=== PATIENT | male | born 1935 | race Caucasian/White ===

== ENCOUNTER 2017-01-13 17:50 | Emergency (ER) | payer MEDICARE, OTHER ==
[~2017-01-13] VITALS: Ht 180.3 cm; Wt 76.0 kg
[~2017-01-13 17:50] MED LIST: CLOP75 PO; FURO1TAB93 PO; LIPI10TA PO; LORTA5 PO; NITR0.4S SL; OMEP20TA39 PO; PRIM250 PO; PROS5TAB2 PO
[2017-01-13 18:16] VITALS: BP 118/66; PULSE 75; RESP 18; TEMP 98.2; O2SAT 95
[2017-01-13] MEDS ORDERED: MAGNESIUM CITRATE SOLN 300 ML BTL PO ONE (19:45)
[2017-01-13] MEDS ORDERED: GLYCERIN ADULT 2 GM SUPP RECTAL ONE (19:45)
--- NOTE | 2017-01-13 19:52 | PD ---
HPI Chief Complaint: GI Complaint Time Seen by Provider: 19:26 Travel History International Travel<30 days: No Contact w/Intl Traveler<30days: No Traveled to known affect area: No History of Present Illness HPI Is an 81-year-old man presents to the emergency department complaining of lower abdominal pain. He states he's had some URI symptoms recently in his doctor started him on some codeine cough medicine. He states over the past 4 days he hasn't been able to have a bowel movement which is unusual for him. reports he has some trouble constipation at baseline. Since that time he has had worsening lower abdominal discomfort. He tried some suppositories today with no effect. 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, no longer on warfarin Social History Alcohol Use: No Tobacco Use: No Allergies-Medications (Allergen,Severity, Reaction): Coded Allergies: Insulins (Verified Allergy, Severe, NPH SPECIFIC RASH - ABLE TO TAKE HUMALOG, 01/13/17) Latex (Verified Allergy, Severe, Rash, 01/13/17) Spiriva (Verified Allergy, Severe, 01/13/17) Uncoded Allergies: FLONASE (Allergy, Severe, 09/15/15) NPH INSULIN (Allergy, Severe, RASH, 03/02/09) Reported Meds & Prescriptions Reported Meds & Active Scripts Active Miralax Powder (Polyethylene Glycol 3350 Powder) 17 Gm Powd 17 Gm PO DAILY Mix and dissolve one measuring cap-ful (17 grams) in water or juice. Poplar 5-325 mg (Hydrocodone-Acetaminophen 5-325 mg) 1 Tab 1 Tab PO Q4H PRN Lasix (Furosemide) 40 Mg Tab 40 Mg PO BID 30 Days Reported Nitrostat (Nitroglycerin) 0.4 Mg Sub 0.4 Mg SL DIRECTED Omeprazole (Omeprazole) 20 Mg Tab 20 Mg PO DAILY Lipitor 10 Mg Tab (Atorvastatin Calcium) 10 Mg Tab Unknown Dose PO DAILY Proscar (Finasteride) 5 Mg Tab 5 Mg PO HS Mysoline (Primidone) 250 Mg Tab 250 Mg PO TID Plavix (Clopidogrel Bisulfate) 75 Mg Tab 75 Mg PO DAILY Review of Systems Except as stated in HPI: all other systems reviewed are Neg Physical Exam Narrative GENERAL: Is an 81-year-old man, little sluggish to respond, obviously feels unwell, not toxic appearing. SKIN: Focused skin assessment warm/dry. HEAD: Atraumatic. Normocephalic. EYES: Pupils equal and round. He does have some pale conjunctiva. ENT: No nasal bleeding or discharge. Mucous membranes pink and moist. NECK: Trachea midline. No JVD. CARDIOVASCULAR: Regular rate and rhythm. No murmur appreciated. RESPIRATORY: No accessory muscle use. Clear to auscultation. Breath sounds equal bilaterally. GASTROINTESTINAL: Abdomen flat and soft. He has some moderate lower abdominal tenderness to palpation. RECTAL: Patient has large amount of firm stool palpable in the rectal vault. Patient was disimpacted of a large amount of firm stool. There was a little bit of bloody mucus at the end. MUSCULOSKELETAL: No obvious deformities. No edema. NEUROLOGICAL: Awake and alert, little bit slow to answer questions. No obvious cranial nerve deficits. Motor grossly within normal limits. Normal speech. Data Data Last Documented VS Vital Signs Date Time Temp Pulse Resp B/P Pulse Ox O2 Delivery O2 Flow Rate FiO2 01/13/17 19:30 18 01/13/17 18:16 98.2 75 118/66 95 Orders Glycerin Adult Supp (Glycerin Adult Supp (01/13/17 19:45) Magnesium Citrate Liq (Citroma Liq) (01/13/17 19:45) Complete Blood Count With Diff (01/13/17 19:44) Basic Metabolic Panel (Bmp) (01/13/17 19:44) Iv Access Insert/Monitor (01/13/17 19:44) Ct Abd/Pel W/O Iv Contrast (01/13/17 ) Insulin Aspart Inj (Novolog Inj) (01/13/17 21:15) Labs Laboratory Tests Test 01/13/17 20:03 White Blood Count 18.0 TH/MM3 Red Blood Count 4.57 MIL/MM3 Hemoglobin 14.2 GM/DL Hematocrit 44.1 % Mean Corpuscular Volume 96.4 FL Mean Corpuscular Hemoglobin 31.1 PG Mean Corpuscular Hemoglobin 32.3 % Concent Red Cell Distribution Width 13.8 % Platelet Count 220 TH/MM3 Mean Platelet Volume 8.3 FL Neutrophils (%) (Auto) 87.6 % Lymphocytes (%) (Auto) 1.8 % Monocytes (%) (Auto) 9.6 % Eosinophils (%) (Auto) 0.4 % Basophils (%) (Auto) 0.6 % Neutrophils # (Auto) 15.8 TH/MM3 Lymphocytes # (Auto) 0.3 TH/MM3 Monocytes # (Auto) 1.7 TH/MM3 Eosinophils # (Auto) 0.1 TH/MM3 Basophils # (Auto) 0.1 TH/MM3 CBC Comment DIFF FINAL Differential Comment Sodium Level 134 MEQ/L Potassium Level 4.4 MEQ/L Chloride Level 95 MEQ/L Carbon Dioxide Level 26.8 MEQ/L Anion Gap 12 MEQ/L Blood Urea Nitrogen 36 MG/DL Creatinine 2.20 MG/DL Estimat Glomerular Filtration 29 ML/MIN Rate Random Glucose 259 MG/DL Calcium Level 9.4 MG/DL [facility] Medical Decision Making Medical Screen Exam Complete: Yes Emergency Medical Condition: Yes Interpretation(s) LABS: CBC remarkable for a white count of 18,000, hemoglobin is normal. CMP remarkable for elevated creatinine, increased from baseline. Glucose is also elevated. CT abdomen and pelvis: Fecal debris throughout the colon consistent with constipation. 16 mm calcified density with the appendix is with fecalith but without thickening dilatation. Pain is still inflammatory changes to suggest acute appendicitis. Degenerative changes in the spine. Atrophic pancreas. Mildly prominent prostate. Fibrotic scarring. Focal emphysematous changes. Differential Diagnosis Constipation, urinary retention, diverticulitis, obstruction, other Narrative Course Medical decision making INITIAL: 81-year-old male presents emergency department for abdominal pain and constipation. His rectal exam demonstrates a large amount of firm stool in the rectal vault. Patient had a door serious ago with inability to pass stools. Think this is suggestive of fecal impaction. He does look pretty pale. We'll check some screening labs and x-ray. We'll also give him a glycerin suppository and magnesium citrate now that we've disimpacted him. Expect improvement of his symptoms. Diagnosis Primary Impression: Abdominal pain Qualified Code: R10.30 - Lower abdominal pain Additional Impression: Constipation Qualified Code: K59.00 - Constipation, unspecified constipation type Additional Instructions: Take MiraLAX starting tomorrow and titrate to normal bowel movements. Follow-up with your primary doctor in the next 2-4 days. Return to the emergency department for any new or worsening symptoms. Med/Other Pt SpecificInfo: Prescription(s) given Scripts Polyethylene Glycol 3350 Powder (Miralax Powder)17 Gm Powd17 Gm PO DAILY #1 BOTTLE Mix and dissolve one measuring cap-ful (17 grams) in water or juice. Prov:Satinder Gaines MD 01/13/17 Disposition: 01 DISCHARGE HOME Condition: Stable Satinder Gaines MD Jan 13, 2017 19:51
[2017-01-13 20:20] LABS: POTASSIUM 4.4 MEQ/L (3.5-5.1)
[2017-01-13 20:23] LABS: AUTOMATED NEUTROPHIL # 15.8 TH/MM3 (1.8-7.7); BASOPHIL # 0.1 TH/MM3 (0-0.2); BASOPHIL % 0.6 % (0.0-2.0); BICARBONATE 26.8 MEQ/L (21.0-32.0); EOSINOPHIL # 0.1 TH/MM3 (0-0.4); EOSINOPHIL % 0.4 % (0.0-4.0); HEMATOCRIT 44.1 % (39.0-51.0); LYMPH % 1.8 % (9.0-44.0); LYMPHOCYTE # 0.3 TH/MM3 (1.0-4.8); MEAN CELL VOLUME 96.4 FL (80.0-100.0); MEAN CORPUSCULAR HEMOGLOBIN 31.1 PG (27.0-34.0); MEAN CORPUSCULAR HGB CONC 32.3 % (32.0-36.0); MONO % 9.6 % (0.0-8.0); NEUT % 87.6 % (16.0-70.0); PLATELET COUNT 220 TH/MM3 (150-450); RED BLOOD COUNT 4.57 MIL/MM3 (4.50-5.90); RED CELL DISTRIBUTION WIDTH 13.8 % (11.6-17.2)
[2017-01-13 20:29] LABS: HEMO FLAGS DIFF FINAL
--- NOTE | 2017-01-13 20:55 | RADHPO ---
EXAM DATE/TIME: 01/13/2017 20:21 [facility] COMPARISON: No previous studies available for comparison. INDICATIONS : Abdominal pain and constipation. ORAL CONTRAST: No oral contrast ingested. RADIATION DOSE: 11.55 CTDIvol (mGy) MEDICAL HISTORY : Hernia, inguinal. Diabetes mellitus type 2. SURGICAL HISTORY : Inguinal hernia repair. ENCOUNTER: Initial ACUITY: 1 day PAIN SCALE: 10/10 LOCATION: Abdomen TECHNIQUE: Volumetric scanning of the abdomen and pelvis was performed. Using automated exposure control and ad justment of the mA and/or kV according to patient size, radiation dose was kept as low as reasonably achievable to obtain optimal diagnostic quality images. FINDINGS: There is evidence of fecal debris throughout the colon consistent with the patient's history of const ipation. There is an ovoid calcification in the expected region of the appendix measuring 1.6 cm con sistent with appendicolith. No definite appendiceal thickening or dilatation is noted. No periappen diceal inflammatory changes are noted to suggest acute appendicitis. Evaluation of the solid organs of the abdomen is limited by the lack of intravenous contrast. There is no acute obstructive uropath y. The urinary bladder is unremarkable. The prostate gland is mildly prominent. The pancreas is at rophic. No acute obstructive uropathy is noted. The gallbladder is unremarkable. Degenerative lopez ges and scoliosis of the thoracolumbar spine are noted. Fibrotic scarring and/or atelectasis are not ed within the right lung base. Focal emphysematous changes are noted within the left lower lobe. Th e abdominal aorta is calcified but is not aneurysmally dilated. The inferior vena cava is normal. T here is no paraaortic, retroperitoneal or mesenteric lymphadenopathy. CONCLUSION: 1. Fecal debris throughout the colon consistent with the patient's history of constipation. 2. 16 mm calcified density within the appendix consistent with fecalith but no thickening, dilatatio n or periappendiceal inflammatory changes to suggest acute appendicitis. 3. Degenerative changes and scoliosis of the thoracolumbar spine. 4. Atrophic pancreas. 5. Mildly prominent prostate gland. 6. Fibrotic scarring and/or atelectasis within the right lung base. 7. Focal emphysematous changes within the left lower lobe. Sam Coburn MD on January 13, 2017 at 20:40 Board Certified Radiologist. This report was verified electronically.
[2017-01-13] MEDS ORDERED: MIRA33504 PO (21:06)
[2017-01-13] MEDS ORDERED: INSULIN ASPART 1,000 UNITS/10 ML VIAL SQ ONE (21:15)
[2017-01-13 21:48] VITALS: BP 135/62; PULSE 93; RESP 16; O2SAT 95
[2017-01-14] MEDS ORDERED: FURO1TAB60 PO (02:56)
[2017-01-14] MEDS ORDERED: LANTUS2P SQ (02:56)
[2017-01-14] MEDS ORDERED: NITR0.4S SL (02:56)
[2017-01-14] MEDS ORDERED: OMEP20TA PO (02:56)
[2017-01-14] MEDS ORDERED: PRIM250T5 PO (02:56)
[2017-01-14] MEDS ORDERED: PLAV75TA29 PO (02:56)
[2017-01-14] MEDS ORDERED: ATOR40TA16 PO (02:56)
[2017-01-14] MEDS ORDERED: FINA5TAB2 PO (02:56)
[2017-01-14] MEDS ORDERED: ACET-534 PO (02:56)
== END 2017-01-13 22:27 | disposition home or self-care (01) ==
LOC: PHED 17:50
DX: K59.00 Constipation, unspecified (principal); I25.10 Atherosclerotic heart disease of native coronary artery without angina pectoris; E11.9 Type 2 diabetes mellitus without complications; E78.5 Hyperlipidemia, unspecified; K21.9 Gastro-esophageal reflux disease without esophagitis; N40.0 Benign prostatic hyperplasia without lower urinary tract symptoms; Z79.02 Long term (current) use of antithrombotics/antiplatelets; Z95.5 Presence of coronary angioplasty implant and graft; Z79.899 Other long term (current) drug therapy
CPT/HCPCS: 74176; 80048; 85025; 96372; 99284; J1815

== ENCOUNTER 2017-02-11 10:15 | Emergency (ER) | payer MEDICARE, OTHER ==
[~2017-02-11] VITALS: Ht 177.8 cm; Wt 71.5 kg
[~2017-02-11 10:15] MED LIST changes: +ACET-534 PO; +ATOR40TA16 PO; -CLOP75 PO; +FINA5TAB2 PO; +FURO1TAB60 PO; -FURO1TAB93 PO; +LANTUS2P SQ; -LIPI10TA PO; -LORTA5 PO; +MIRA33504 PO; +OMEP20TA PO; -OMEP20TA39 PO; +PLAV75TA29 PO; -PRIM250 PO; +PRIM250T5 PO; -PROS5TAB2 PO
[2017-02-11 10:24] VITALS: BP 116/63; PULSE 93; RESP 18; TEMP 97.9; O2SAT 94
[2017-02-11] MEDS ORDERED: SODIUM CHLORIDE 0.9% FLUSH 10 ML FLUSH IVF PRN (10:45)
[2017-02-11] MEDS ORDERED: methylPREDNISolone SOD SUCC 125 MG/2 ML VIAL IVP ONE (10:45)
[2017-02-11] MEDS: RESP: ALBUTEROL 2.5 MG/IPRATROPIUM 0.5 MG NEB (SCH) INH ×2 (10:51→10:55)
[2017-02-11 10:52] VITALS: BP 96/62; PULSE 83; RESP 18; O2SAT 96
--- NOTE | 2017-02-11 10:52 | PD ---
HPI Chief Complaint: Respiratory Symptoms Time Seen by Provider: 10:31 Travel History International Travel<30 days: No Contact w/Intl Traveler<30days: No Traveled to known affect area: No History of Present Illness HPI This is an 81-year-old male who presents to the emergency department with 6 weeks of increasing sputum production described as brown, constant, moderate severity, associated with some rhinorrhea and nasal congestion. He was prescribed a Z-Mitchell by his primary care physician and he is on the fourth day out of 5 and it's not helping. He does say he feels short of breath particularly with exertion. He says he wakes up in the middle the night coughing. He does have a history of congestive heart failure and is on Lasix but has not noticed any increasing lower extremity swelling. He denies any chest pain. He says he has a history of blood clots in his lungs by his doctor told him that the risks of treating them were too high so they're just watching them. PFSH Past Medical History Hx Anticoagulant Therapy: Yes Arthritis: Yes Anxiety: No Depression: No Cancer: No Cardiac Catheterization: Yes Cardiovascular Problems: Yes (htn on meds, AL x 1 with stents. Hx of PE) High Cholesterol: Yes Coronary Artery Disease: Yes Diabetes: Yes Patient Takes Glucophage: No Diminished Hearing: No Deep Vein Thrombosis: Yes (BILAT PE) Gastrointestinal Disorders: Yes GERD: Yes Genitourinary: Yes (ENLARGED PROSTATE) Hypertension: Yes Immune Disorder: Yes (SHINGLES) Musculoskeletal: Yes (OSTEOPROSIS) Neurologic: No Psychiatric: No Respiratory: Yes (PE) Influenza Vaccination: Yes ?: Not Past Surgical History Abdominal Surgery: Yes (HUE INGUINAL HERNIA REPAIR) Coronary Stent: Yes (2007- X1 LAD, AND SEOT 2015/X3) Thoracic Surgery: Yes (RT LUNG BIOPSY ) Other Surgery: Yes (HUE HERNIA) Social History Alcohol Use: No Tobacco Use: No Substance Use: No Allergies-Medications (Allergen,Severity, Reaction): Coded Allergies: Insulins (Verified Allergy, Severe, NPH SPECIFIC RASH - ABLE TO TAKE HUMALOG, 02/11/17) Latex (Verified Allergy, Severe, Rash, 02/11/17) Spiriva (Verified Allergy, Severe, 02/11/17) Uncoded Allergies: FLONASE (Allergy, Severe, 02/11/17) . Reported Meds & Prescriptions Reported Meds & Active Scripts Active Reported Nitrostat SL (Nitroglycerin) 0.4 Mg Subl 0.4 Mg SL DIRECTED PRN 1 tablet under the tongue as needed for chest pain. Repeat every 5 minutes for a total of 3 DOSES or call 911 if NO relief. Acetaminophen/Codeine Jennifer 300-30 mg (Acetaminophen W/ Codeine) 1 Tab Tab 1 Tab PO DAILY PRN Finasteride 5 Mg Tab 5 Mg PO HS Do not crush. Atorvastatin (Atorvastatin Calcium) 40 Mg Tab 40 Mg PO HS Omeprazole 20 Mg Tab 20 Mg PO HS Lantus Inj (Insulin Glargine) 1,000 Unit/10 Ml Vial 20 Units SQ HS Lasix (Furosemide) 40 Mg Tab 40 Mg PO DAILY Plavix (Clopidogrel Bisulfate) 75 Mg Tab 75 Mg PO DAILY Primidone 250 Mg Tab 250 Mg PO TID Review of Systems Except as stated in HPI: all other systems reviewed are Neg Physical Exam Narrative GENERAL: Frail elderly male in no acute distress SKIN: Focused skin assessment warm and dry. HEAD: Atraumatic. Normocephalic. EYES: Pupils equal and round. No injection or drainage. ENT: Moist mucous membranes NECK: Trachea midline. CARDIOVASCULAR: Regular rate and rhythm. No murmur appreciated. RESPIRATORY: Expiratory wheezing, some rhonchi in the bilateral lower lobes GASTROINTESTINAL: Abdomen soft, non-tender, nondistended. MUSCULOSKELETAL: No obvious deformities. NEUROLOGICAL: Awake and alert. No obvious cranial nerve deficits. Moving all extremities. PSYCHIATRIC: Appropriate mood and affect; insight and judgment normal. Data Data Last Documented VS Vital Signs Date Time Temp Pulse Resp B/P Pulse Ox O2 Delivery O2 Flow Rate FiO2 02/11/17 13:45 82 18 161/82 98 Nasal Cannula 2 02/11/17 10:24 97.9 Orders Complete Blood Count With Diff (02/11/17 10:43) Comprehensive Metabolic Panel (02/11/17 10:43) B-Type Natriuretic Peptide (02/11/17 10:43) Iv Access Insert/Monitor (02/11/17 10:43) Ecg Monitoring (02/11/17 10:43) Oximetry (02/11/17 10:43) Oxygen Administration (02/11/17 10:43) Chest, Single Ap (02/11/17 10:43) Sodium Chloride 0.9% Flush (Ns Flush) (02/11/17 10:45) Methylprednisolone So Succ Inj (Solumedr (02/11/17 10:45) Albuterol-Ipratropium Neb (Duoneb Neb) (02/11/17 10:45) Ct Pulmonary Angiogram (02/11/17 ) Iohexol 350 Inj (Omnipaque 350 Inj) (02/11/17 13:43) Labs Laboratory Tests Test 02/11/17 10:45 White Blood Count 6.8 TH/MM3 Red Blood Count 4.14 MIL/MM3 Hemoglobin 13.4 GM/DL Hematocrit 39.4 % Mean Corpuscular Volume 95.2 FL Mean Corpuscular Hemoglobin 32.5 PG Mean Corpuscular Hemoglobin 34.2 % Concent Red Cell Distribution Width 13.8 % Platelet Count 141 TH/MM3 Mean Platelet Volume 7.7 FL Neutrophils (%) (Auto) 67.4 % Lymphocytes (%) (Auto) 11.9 % Monocytes (%) (Auto) 8.1 % Eosinophils (%) (Auto) 12.3 % Basophils (%) (Auto) 0.3 % Neutrophils # (Auto) 4.7 TH/MM3 Lymphocytes # (Auto) 0.8 TH/MM3 Monocytes # (Auto) 0.5 TH/MM3 Eosinophils # (Auto) 0.8 TH/MM3 Basophils # (Auto) 0.0 TH/MM3 CBC Comment DIFF FINAL Differential Comment Sodium Level 143 MEQ/L Potassium Level 4.1 MEQ/L Chloride Level 105 MEQ/L Carbon Dioxide Level 32.6 MEQ/L Anion Gap 5 MEQ/L Blood Urea Nitrogen 19 MG/DL Creatinine 1.60 MG/DL Estimat Glomerular Filtration 42 ML/MIN Rate Random Glucose 226 MG/DL Calcium Level 8.8 MG/DL Total Bilirubin 0.4 MG/DL Aspartate Amino Transf 25 U/L (AST/SGOT) Alanine Aminotransferase 25 U/L (ALT/SGPT) Alkaline Phosphatase 124 U/L B-Type Natriuretic Peptide 301 PG/ML Total Protein 7.2 GM/DL Albumin 3.4 GM/DL MDM Medical Decision Making Medical Screen Exam Complete: Yes Emergency Medical Condition: Yes Interpretation(s) Afebrile, no tachycardia, normotensive No leukocytosis Renal insufficiency BNP is 300 Last 24 hours Impressions Chest X-Ray 02/11/17 1043 Signed Impressions: Service Date/Time: January 11:03 - CONCLUSION: No acute cardiopulmonary abnormality is identified. Brady Carlson MD CT Angiography 02/11/17 0000 Signed Impressions: Service Date/Time: January 13:16 - CONCLUSION: 1. No current evidence of pulmonary emboli. 2. Chronic scarring. 3. Coronary artery calcifications are present. Chico Martinez MD Differential Diagnosis COPD exacerbation, pneumonia, pulmonary embolism Narrative Course This is an 81-year-old male who presents to the emergency department with increasing sputum production and shortness of breath that has been going on for several weeks. He was placed on a monitor and an IV was established. He was given steroids and bronchodilator treatments. Labs are obtained which were reassuring with an indeterminate BMP however patient does have a known history of congestive heart failure. Chest x-ray was without pneumonia. CT pulmonary angiogram was obtained given the patient's reported history of known pulmonary emboli. There are no evidence of blood clots on his CT today. I suspect the patient has underlying COPD. He'll be discharged on prednisone, continued bronchodilators and Levaquin. Diagnosis Primary Impression: Bronchitis Patient Instructions: General Instructions Additional Instructions: If you develop severe shortness of breath, chest pain, or difficulty breathing return to the emergency department. Use albuterol every 4 hours for the next 2 days. Then use as needed for wheezing. Complete your course of steroids. Complete your course of antibiotics. Follow up with your primary care physician in 2-3 days if your symptoms have not improved. Med/Other Pt SpecificInfo: Prescription(s) given Scripts Albuterol 8.5 GM Inh (Proair Hfa 8.5 GM Inh)90 Mcg/Act Aer2 Puff INH Q4-6H PRN ( SHORTNESS OF BREATH) #1 INHALER Ref 0 108 mcg/actuation Prov:Jamilah Way MD 02/11/17 Prednisone 20 Mg Tab40 Mg PO DAILY 4 Days Prov:Jamilah Way MD 02/11/17 Levofloxacin (Levaquin)500 Mg [id number] Mg PO DAILY 7 Days Ref 0 Prov:Jamilah Way MD 02/11/17 Disposition: 01 DISCHARGE HOME Condition: Stable Jamilah Way MD Feb 11, 2017 10:52
[2017-02-11 10:55] LABS: AUTOMATED NEUTROPHIL # 4.7 TH/MM3 (1.8-7.7); BASOPHIL % 0.3 % (0.0-2.0); EOSINOPHIL # 0.8 TH/MM3 (0-0.4); EOSINOPHIL % 12.3 % (0.0-4.0); HEMATOCRIT 39.4 % (39.0-51.0); HEMO FLAGS DIFF FINAL; LYMPH % 11.9 % (9.0-44.0); LYMPHOCYTE # 0.8 TH/MM3 (1.0-4.8); MEAN CELL VOLUME 95.2 FL (80.0-100.0); MEAN CORPUSCULAR HEMOGLOBIN 32.5 PG (27.0-34.0); MEAN CORPUSCULAR HGB CONC 34.2 % (32.0-36.0); MONO % 8.1 % (0.0-8.0); NEUT % 67.4 % (16.0-70.0); PLATELET COUNT 141 TH/MM3 (150-450); RED BLOOD COUNT 4.14 MIL/MM3 (4.50-5.90); RED CELL DISTRIBUTION WIDTH 13.8 % (11.6-17.2); WHITE BLOOD COUNT 6.8 TH/MM3 (4.0-11.0)
[2017-02-11 11:03] LABS: CHLORIDE 105 MEQ/L (98-107); POTASSIUM 4.1 MEQ/L (3.5-5.1); SODIUM (NA) 143 MEQ/L (136-145)
[2017-02-11 11:06] LABS: ANION GAP 5 MEQ/L (5-15); BICARBONATE 32.6 MEQ/L (21.0-32.0); BLOOD UREA NITROGEN 19 MG/DL (7-18)
[2017-02-11 11:09] LABS: ALT (GPT) 25 U/L (12-78)
[2017-02-11 11:10] LABS: AST (GOT) 25 U/L (15-37); GLOMERULAR FILTRATION RATE 42 ML/MIN (>89)
[2017-02-11 11:11] LABS: TOTAL BILIRUBIN ADULT 0.4 MG/DL (0.2-1.0)
[2017-02-11 11:12] LABS: ALKALINE PHOSPHATASE 124 U/L (45-117)
--- NOTE | 2017-02-11 11:47 | RADHPO ---
EXAM DATE/TIME: 02/11/2017 11:03 [facility] COMPARISON: CHEST SINGLE AP, September 18, 2015, 13:21. INDICATIONS : Short of breath, cough, heavy phlegm x 6 weeks. MEDICAL HISTORY : Hypertension. Myocardial infarction. Hypercholesterolemia. DVT. GERD.Osteoarthritis. Enlarged pro state. Arthirtis. Shingles. Pulmonary embolism. SURGICAL HISTORY : Inguinal hernia repair. Cardiac cath w/ stent placement. Right lung biopsy. Bialteral rotator cuff repair. ENCOUNTER: Initial ACUITY: 1 month PAIN SCORE: 0/10 LOCATION: chest FINDINGS: Portable AP view of the chest demonstrates a normal-sized cardiac silhouette. Lungs are underinflated and there is atelectasis at the right lung base. No effusion, consolidation, or pneumothorax is iden tified. Bones demonstrate no acute finding. CONCLUSION: No acute cardiopulmonary abnormality is identified. Brady Carlson MD on February 11, 2017 at 11:38 Board Certified Radiologist. This report was verified electronically.
[2017-02-11 12:02] VITALS: BP 135/67; PULSE 78; RESP 18; O2SAT 94
[2017-02-11] MEDS ORDERED: IOHEXOL 350 MG/ML 10 ML VIAL (for RAD DIAG) IV ONE (13:43)
[2017-02-11 13:45] VITALS: BP 161/82; PULSE 82; RESP 18; O2SAT 98
--- NOTE | 2017-02-11 13:51 | RADHPO ---
EXAM DATE/TIME: 02/11/2017 13:16 [facility] COMPARISON: CHEST SINGLE AP, February 11, 2017, 11:03. CT PULMONARY ANGIOGRAM, September 15, 2015, 0:32. INDICATIONS : Cough and congestion for 6 weeks. History of prior documented pulmonary emboli in 2014. IV CONTRAST: 100 cc Omnipaque 350 (iohexol) IV RADIATION DOSE: 10.93 CTDIvol (mGy) MEDICAL HISTORY : Hypertension. Diabetes mellitus type 2. Cardiovascular disease SURGICAL HISTORY : None. ENCOUNTER: Initial ACUITY: 1 month PAIN SCALE: 2/10 LOCATION: chest TECHNIQUE: Volumetric scanning of the chest was performed using a pulmonary embolism protocol MIP images were re constructed. Using automated exposure control and adjustment of the mA and/or kV according to patien t size, radiation dose was kept as low as reasonably achievable to obtain optimal diagnostic quality images. FINDINGS: PULMONARY ARTERIES: No filling defects are seen in the pulmonary arteries through the segmental level. LUNGS: There is no consolidation or pneumothorax . Chronic scarring is noted greatest at the lung bases. No concerning pulmonary nodule is visualized. PLEURAE: There is no pleural thickening or pleural effusion. MEDIASTINUM: There is good visualization of the great vessels of the middle mediastinum. No evidence of mediastin al or hilar adenopathy/mass. Coronary artery calcifications are present. MUSCULOSKELETAL: Within normal limits for patient age. MISCELLANEOUS: The visualized upper abdominal organs demonstrate no acute abnormality. CONCLUSION: 1. No current evidence of pulmonary emboli. 2. Chronic scarring. 3. Coronary artery calcifications are present. Chico Martinez MD on February 11, 2017 at 13:46 Board Certified Radiologist. This report was verified electronically.
[2017-02-11] MEDS ORDERED: LEVA500T PO (14:12)
[2017-02-11] MEDS ORDERED: PRED20 PO (14:12)
[2017-02-11] MEDS ORDERED: ALBUAER3 INH (14:12)
== END 2017-02-11 14:25 | disposition home or self-care (01) ==
LOC: PHED 10:15
DX: J40 Bronchitis, not specified as acute or chronic (principal); R05 Cough; I10 Essential (primary) hypertension; E11.9 Type 2 diabetes mellitus without complications; R06.02 Shortness of breath; Z79.01 Long term (current) use of anticoagulants
CPT/HCPCS: 71010; 71275; 80053; 83880; 85025; 94640; 94664; 96374; 99284; J2930; Q9967

== ENCOUNTER 2017-03-19 11:44 | Observation (INO) | payer MEDICARE, OTHER ==
[2017-03-19] VITALS (11 sets, daily range): BP systolic 94–133; BP diastolic 63–73; PULSE 75–90; RESP 14–20; TEMP 96.4–97.9; O2SAT 90–98
[~2017-03-19] VITALS: Ht 177.8 cm; Wt 156.3 kg
[~2017-03-19 11:44] MED LIST changes: +ALBUAER3 INH; +LEVA500T PO; -MIRA33504 PO; +PRED20 PO
[2017-03-19] MEDS ORDERED: PRIM50TA5 PO (12:26)
[2017-03-19] MEDS ORDERED: VITA100018 PO (12:26)
[2017-03-19] MEDS ORDERED: OCUVTAB4 PO (12:26)
[2017-03-19] MEDS ORDERED: DULC5TAB PO (12:26)
[2017-03-19] MEDS ORDERED: [UNRECOGNIZED DRUG - CODE] PO (12:26)
[2017-03-19] MEDS ORDERED: NEBUMIS6 INH (12:26)
[2017-03-19] MEDS ORDERED: SODIUM CHLORIDE 0.9% FLUSH 10 ML FLUSH IVF PRN (12:30)
[2017-03-19] MEDS: RESP: ALBUTEROL 2.5 MG/IPRATROPIUM 0.5 MG NEB (SCH) INH (12:30)
[2017-03-19 12:33] LABS: AUTOMATED NEUTROPHIL # 4.4 TH/MM3 (1.8-7.7); BASOPHIL % 0.5 % (0.0-2.0); EOSINOPHIL # 0.5 TH/MM3 (0-0.4); EOSINOPHIL % 8.1 % (0.0-4.0); HEMATOCRIT 43.4 % (39.0-51.0); HEMO FLAGS DIFF FINAL; LYMPH % 9.8 % (9.0-44.0); LYMPHOCYTE # 0.6 TH/MM3 (1.0-4.8); MEAN CELL VOLUME 94.4 FL (80.0-100.0); MEAN CORPUSCULAR HEMOGLOBIN 31.9 PG (27.0-34.0); MEAN CORPUSCULAR HGB CONC 33.8 % (32.0-36.0); MONO % 9.6 % (0.0-8.0); PLATELET COUNT 178 TH/MM3 (150-450); RED CELL DISTRIBUTION WIDTH 14.3 % (11.6-17.2); WHITE BLOOD COUNT 6.1 TH/MM3 (4.0-11.0)
[2017-03-19 12:41] LABS: CHLORIDE 101 MEQ/L (98-107); SODIUM (NA) 141 MEQ/L (136-145)
[2017-03-19 12:44] LABS: ANION GAP 7 MEQ/L (5-15); BICARBONATE 32.9 MEQ/L (21.0-32.0); BLOOD UREA NITROGEN 27 MG/DL (7-18)
[2017-03-19 12:46] LABS: APTT (PATIENT) 28.3 SEC (24.3-30.1); PROTHROMBIN TIME - PATIENT 11.6 SEC (9.8-11.6)
[2017-03-19 12:47] LABS: ALT (GPT) 30 U/L (12-78); AST (GOT) 44 U/L (15-37); GLOMERULAR FILTRATION RATE 34 ML/MIN (>89)
[2017-03-19 12:49] LABS: TOTAL BILIRUBIN ADULT 0.3 MG/DL (0.2-1.0)
[2017-03-19 12:50] LABS: ALKALINE PHOSPHATASE 148 U/L (45-117); CREATINE KINASE 442 U/L (39-308)
[2017-03-19 13:03] LABS: CKMB 4.9 NG/ML (0.5-3.6)
--- NOTE | 2017-03-19 13:26 | RADHPO ---
EXAM DATE/TIME: 03/19/2017 13:12 [facility] COMPARISON: CHEST SINGLE AP, February 11, 2017, 11:03. INDICATIONS : Short of breath and cough MEDICAL HISTORY : Deep venous thrombosis. Hypertension Hypercholesterolemia. Blood clots in lungs SURGICAL HISTORY : Cardiac stents ENCOUNTER: Initial ACUITY: 2 months PAIN SCORE: 0/10 LOCATION: Bilateral chest FINDINGS: PA and lateral views of the chest. Persistent elevation of the right hemidiaphragm. Patchy predominan tly linear opacity in the mid to lower lung zones bilaterally similar to the prior study of 02/11/2017 . No evidence of pleural effusion or pneumothorax. CONCLUSION: Bilateral lower lung zone opacity similar to the prior study, likely representing atelectasis or scar ring. Yogesh Marie MD on March 19, 2017 at 13:23 Board Certified Radiologist. This report was verified electronically.
--- NOTE | 2017-03-19 13:46 | PD ---
HPI Chief Complaint: Cold / Flu Symptoms Time Seen by Provider: 12:10 Travel History International Travel<30 days: No (5) Contact w/Intl Traveler<30days: No Traveled to known affect area: No History of Present Illness HPI Patient is a 81 year old male, with history of CHF (EF 35%), who comes in complaining of SOB. He is followed by Dr. Corona from pulmonology and has been receiving infusions of antibiotics and steroids for the past 3 weeks. He says he has had a cough for the past 4 months. He says that when he went for his infusion today, they told him it didn't seem to be helping and that his oxygen saturation was low (85%). They suggested he come to the ED. He says the coughing has been bothering him and he feels SOB. He denies fever. He says he has had an 8-10 pound weight loss. He denies any chest pain or leg swelling. PFSH Past Medical History Hx Anticoagulant Therapy: Yes (PLAVIX) Arthritis: Yes Anxiety: No Depression: No Cancer: No Cardiac Catheterization: Yes Cardiovascular Problems: Yes (htn on meds, [place] x 1 with stents. Hx of PE) High Cholesterol: Yes Coronary Artery Disease: Yes Diabetes: Yes Patient Takes Glucophage: No Diminished Hearing: Yes Deep Vein Thrombosis: Yes (BILAT PE) Gastrointestinal Disorders: Yes GERD: Yes Genitourinary: Yes (ENLARGED PROSTATE) Hypertension: Yes Immune Disorder: Yes (SHINGLES) Medical other: Yes ([place] VIRUS IN PAST) Musculoskeletal: Yes (OSTEOPROSIS) Neurologic: No Psychiatric: No Respiratory: Yes (PE) Immunizations Current: Yes Tetanus Vaccination: Unknown Influenza Vaccination: Yes Past Surgical History Abdominal Surgery: Yes (HUE INGUINAL HERNIA REPAIR) Coronary Stent: Yes (2006- X1 LAD, AND SEOT 2015/X3) Thoracic Surgery: Yes (RT LUNG BIOPSY ) Other Surgery: Yes (HUE HERNIA) Social History Alcohol Use: No Tobacco Use: No Substance Use: No Allergies-Medications (Allergen,Severity, Reaction): Coded Allergies: Insulins (Verified Allergy, Severe, NPH SPECIFIC RASH - ABLE TO TAKE HUMALOG, 03/19/17) Latex (Verified Allergy, Severe, Rash, 03/19/17) Spiriva (Verified Allergy, Severe, DIFFICULTY URINATING, 03/19/17) Uncoded Allergies: FLONASE (Allergy, Severe, 02/11/17) . Reported Meds & Prescriptions Reported Meds & Active Scripts Active Proair Hfa 8.5 GM Inh (Albuterol Sulfate) 90 Mcg/Act Aer 2 Puff INH Q4-6H PRN 108 mcg/actuation Prednisone 20 Mg Tab 40 Mg PO DAILY 4 Days Reported Vitamin D3 (Cholecalciferol) 1,000 Unit Tab 1,000 Units PO DAILY Preservision Areds (Multiple Vitamins W/ Minerals) 1 Tab 1 Tab PO DAILY Dulcolax DR (Bisacodyl) 5 Mg Tabdr 5 Mg PO DAILY PRN Oscimin (Hyoscyamine Sulfate) 0.125 Mg Tab 1 Tab PO DAILY [Nebulizer] 1 INH TID Primidone 50 Mg Tab 250 Mg PO TID Nitrostat SL (Nitroglycerin) 0.4 Mg Subl 0.4 Mg SL DIRECTED PRN 1 tablet under the tongue as needed for chest pain. Repeat every 5 minutes for a total of 3 DOSES or call 911 if NO relief. Finasteride 5 Mg Tab 5 Mg PO HS Do not crush. Atorvastatin (Atorvastatin Calcium) 40 Mg Tab 40 Mg PO HS Omeprazole 20 Mg Tab 20 Mg PO HS Lantus Inj (Insulin Glargine) 1,000 Unit/10 Ml Vial 20 Units SQ BID Lasix (Furosemide) 40 Mg Tab 40 Mg PO DAILY Plavix (Clopidogrel Bisulfate) 75 Mg Tab 75 Mg PO DAILY Review of Systems Except as stated in HPI: all other systems reviewed are Neg General / Constitutional: No: Fever, Chills HENT: No: Headaches, Lightheadedness Cardiovascular: No: Chest Pain or Discomfort Respiratory: Positive: Cough, Shortness of Breath Gastrointestinal: Positive: Nausea, No: Vomiting Musculoskeletal: No: Myalgias, Edema Skin: No Rash, No Change in Pigmentation Neurologic: No: Weakness, Dizziness Physical Exam Narrative GENERAL: Awake and alert, in no acute distress. SKIN: Focused skin assessment warm/dry. HEAD: Atraumatic. Normocephalic. EYES: Pupils equal and round. No scleral icterus. ENT: Mucous membranes pink and moist. NECK: Trachea midline. No JVD. CARDIOVASCULAR: Regular rate and rhythm. No murmur appreciated. RESPIRATORY: No accessory muscle use. Right-sided crackles. Breath sounds equal bilaterally. GASTROINTESTINAL: Abdomen soft, non-tender, nondistended. MUSCULOSKELETAL: No obvious deformities. No clubbing. No cyanosis. No edema. NEUROLOGICAL: Awake and alert. No obvious cranial nerve deficits. Motor grossly within normal limits. Normal speech. PSYCHIATRIC: Appropriate mood and affect; insight and judgment normal. Data Data Last Documented VS Vital Signs Date Time Temp Pulse Resp B/P Pulse Ox O2 Delivery O2 Flow Rate FiO2 03/19/17 13:01 84 18 121/72 97 Nasal Cannula 2 03/19/17 11:46 97.9 Orders Complete Blood Count With Diff (03/19/17 12:19) Comprehensive Metabolic Panel (03/19/17 12:19) B-Type Natriuretic Peptide (03/19/17 12:19) Act Partial Throm Time (Ptt) (03/19/17 12:19) Prothrombin Time / Inr (Pt) (03/19/17 12:19) Ckmb (Isoenzyme) Profile (03/19/17 12:19) Troponin I (03/19/17 12:19) Iv Access Insert/Monitor (03/19/17 12:19) Electrocardiogram (03/19/17 12:19) Ecg Monitoring (03/19/17 12:19) Oximetry (03/19/17 12:19) Oxygen Administration (03/19/17 12:19) Chest, Pa & Lat (03/19/17 12:19) Sodium Chloride 0.9% Flush (Ns Flush) (03/19/17 12:30) Albuterol-Ipratropium Neb (Duoneb Neb) (03/19/17 12:30) CKMB (03/19/17 11:55) CKMB% (03/19/17 11:55) Labs Laboratory Tests Test 03/19/17 11:55 White Blood Count 6.1 TH/MM3 Red Blood Count 4.60 MIL/MM3 Hemoglobin 14.7 GM/DL Hematocrit 43.4 % Mean Corpuscular Volume 94.4 FL Mean Corpuscular Hemoglobin 31.9 PG Mean Corpuscular Hemoglobin 33.8 % Concent Red Cell Distribution Width 14.3 % Platelet Count 178 TH/MM3 Mean Platelet Volume 8.0 FL Neutrophils (%) (Auto) 72.0 % Lymphocytes (%) (Auto) 9.8 % Monocytes (%) (Auto) 9.6 % Eosinophils (%) (Auto) 8.1 % Basophils (%) (Auto) 0.5 % Neutrophils # (Auto) 4.4 TH/MM3 Lymphocytes # (Auto) 0.6 TH/MM3 Monocytes # (Auto) 0.6 TH/MM3 Eosinophils # (Auto) 0.5 TH/MM3 Basophils # (Auto) 0.0 TH/MM3 CBC Comment DIFF FINAL Differential Comment Prothrombin Time 11.6 SEC Prothromb Time International 1.0 RATIO Ratio Activated Partial 28.3 SEC Thromboplast Time Sodium Level 141 MEQ/L Potassium Level 4.0 MEQ/L Chloride Level 101 MEQ/L Carbon Dioxide Level 32.9 MEQ/L Anion Gap 7 MEQ/L Blood Urea Nitrogen 27 MG/DL Creatinine 1.90 MG/DL Estimat Glomerular Filtration 34 ML/MIN Rate Random Glucose 219 MG/DL Calcium Level 8.8 MG/DL Total Bilirubin 0.3 MG/DL Aspartate Amino Transf 44 U/L (AST/SGOT) Alanine Aminotransferase 30 U/L (ALT/SGPT) Alkaline Phosphatase 148 U/L Total Creatine Kinase 442 U/L Creatine Kinase MB 4.9 NG/ML Creatine Kinase MB % 1.1 % Troponin I 0.06 NG/ML B-Type Natriuretic Peptide 275 PG/ML Total Protein 7.9 GM/DL Albumin 3.6 GM/DL MDM Medical Decision Making Medical Screen Exam Complete: Yes Emergency Medical Condition: Yes Medical Record Reviewed: Yes Interpretation(s) ECG shows NSR at 81, no ST elevation or depression. t wave inversions in V4-V6 Differential Diagnosis Pneumonia versus COPD versus CHF versus ACS Narrative Course Patient is a 81-year-old male comes in complaining of shortness of breath and patient found to be hypoxic triage to 90%. He was placed on nasal cannula. IV established, labs sent. Exam shows right-sided crackles in the lungs. Patient placed on model and mold maker. Labs show an elevation in troponin to 0.06, CK-MB is also elevated. Patient was given 3 DuoNebs, which she says has helped a little with his breathing. He still was not feeling well. Chest x-ray is unchanged from previous. Patient will require admission due to hypoxia as well as elevated cardiac enzymes. Diagnosis Primary Impression: SOB (shortness of breath) Additional Impressions: Hypoxia Cardiac enzymes elevated Admitting Information Admitting Physician Requests: Admit Condition: Stable Veronica Suarez MD Mar 19, 2017 13:46
[2017-03-19] MEDS ORDERED: ASPIRIN 81 MG CHEW TAB CHEW ONE (14:00)
[2017-03-19] MEDS ORDERED: GLUCAGON 1 MG/ML VIAL OTHER PRN (14:15)
[2017-03-19] MEDS ORDERED: RESP: ALBUTEROL 1.25 MG/3 ML NEB (PRN) NEB (14:15)
[2017-03-19] MEDS ORDERED: DEXTROSE 50% IN WATER 50 ML VIAL(D50) IV PRN (14:15)
--- NOTE | 2017-03-19 14:18 | HHI.HP ---
[facility] Service [facility] Primary Care Physician Jigna Espino MD Admission Diagnosis Hypoxia, elevated cardiac enzymes Diagnoses: (1) Bronchitis Diagnosis: Principal Chief Complaint: cough Travel History International Travel<30 Days: No (5) Contact w/Intl Traveler <30 Da: No Traveled to Known Affected Are: No History of Present Illness patient is a 81 y/o male with reported recently diagnosed COPD who presented to ER with productive cough. he says that his cough started while back. cough is productive of yellowish/ whitish sputum.he denies any fever, chills or night sweats. he says that he doesn't have that much of appetite and he's feeling very weak. he's being followed up by . he says that he's been getting IV antibiotics and steroids in the office for the past two weeks with no significant relief. he was referred to ER for further evaluation. he received neb treatment in ER and at the time of my evaluation he was feeling better. he denies chest pain. Review of Systems Constitutional: COMPLAINS OF: Fatigue, Change in appetite, DENIES: Fever, Weight loss, Chills, Night Sweats Eyes: DENIES: Blurred vision, Diplopia, Vision loss, Double Vision Ears, nose, mouth, throat: DENIES: Tinnitus, Vertigo, Throat pain, Epistaxis Respiratory: COMPLAINS OF: Cough, Sputum production, DENIES: Apneas, Snoring, Wheezing, Hemoptysis, Shortness of breath Cardiovascular: DENIES: Chest pain, Palpitations, Syncope, Dyspnea on Exertion , PND, Lower Extremity Edema, Orthopnea, Claudication Gastrointestinal: DENIES: Abdominal pain, Black stools, Bloody stools, Constipation, Diarrhea, Nausea, Vomiting, Difficulty Swallowing, Anorexia Genitourinary: DENIES: Urinary frequency, Urgency, Hematuria, Dysuria Musculoskeletal: DENIES: Joint pain, Muscle aches, Stiffness, Joint Swelling Integumentary: DENIES: Rash Neurologic: DENIES: Abnormal gait, Headache, Localized weakness, Paresthesias, Seizures, Speech Problems, Tremor, Poor Balance Psychiatric: DENIES: Anxiety, Confusion, Mood changes, Depression, Hallucinations, Agitation, Suicidal Ideation, Homicidal Ideation, Delusions Past Family Social History Past Medical History COPD diabetes mellitus hypertension CAD Past Surgical History cardiac stent placement lung surgery Reported Medications Proair Hfa 8.5 GM Inh (Albuterol Sulfate) 90 Mcg/Act Aer 2 Puff INH Q4-6H PRN 108 mcg/actuation Prednisone 20 Mg Tab 40 Mg PO DAILY 4 Days Vitamin D3 (Cholecalciferol) 1,000 Unit Tab 1,000 Units PO DAILY Preservision Areds (Multiple Vitamins W/ Minerals) 1 Tab 1 Tab PO DAILY Dulcolax DR (Bisacodyl) 5 Mg Tabdr 5 Mg PO DAILY PRN Oscimin (Hyoscyamine Sulfate) 0.125 Mg Tab 1 Tab PO DAILY [Nebulizer] 1 INH TID Primidone 50 Mg Tab 250 Mg PO TID Nitrostat SL (Nitroglycerin) 0.4 Mg Subl 0.4 Mg SL DIRECTED PRN 1 tablet under the tongue as needed for chest pain. Repeat every 5 minutes for a total of 3 DOSES or call 911 if NO relief. Finasteride 5 Mg Tab 5 Mg PO HS Do not crush. Atorvastatin (Atorvastatin Calcium) 40 Mg Tab 40 Mg PO HS Omeprazole 20 Mg Tab 20 Mg PO HS Lantus Inj (Insulin Glargine) 1,000 Unit/10 Ml Vial 20 Units SQ BID Lasix (Furosemide) 40 Mg Tab 40 Mg PO DAILY Plavix (Clopidogrel Bisulfate) 75 Mg Tab 75 Mg PO DAILY Allergies: Coded Allergies: Insulins (Verified Allergy, Severe, NPH SPECIFIC RASH - ABLE TO TAKE HUMALOG, 03/19/17) Latex (Verified Allergy, Severe, Rash, 03/19/17) Spiriva (Verified Allergy, Severe, DIFFICULTY URINATING, 03/19/17) Uncoded Allergies: FLONASE (Allergy, Severe, 02/11/17) . Active Ordered Medications Current Medications Sodium Chloride (NS Flush) 2 ml UNSCH PRN IVF FLUSH AFTER USING IV ACCESS; Start 03/19/17 at 12:30 Albuterol/ Ipratropium (Duoneb Neb) 1 ampule Q15M INH Last administered on t 12:30; Start 03/19/17 at 12:30; Stop 03/19/17 at 13:01; Status DC Aspirin (Aspirin Chew) 324 mg ONCE ONCE CHEW Last administered on 03/19/17t 13: 52; Start 03/19/17 at 14:00; Stop 03/19/17 at 14:01; Status DC Dextrose (D50w (Vial) Inj) 50 ml UNSCH PRN IV HYPOGLYCEMIA-SEE COMMENTS; Start 03/19/17 at 14:15; Status UNV Glucagon (Glucagon Inj) 1 mg UNSCH PRN OTHER HYPOGLYCEMIA-SEE COMMENTS; Start 03/19/17 at 14:15; Status UNV Insulin Aspart (NovoLOG SUPPLEMENTAL SCALE) 1 ACHS SLIDING SCALE SQ ; Start 03/19/17 at 16:00; Status UNV Atorvastatin Calcium (Lipitor) 40 mg HS PO ; Start 03/19/17 at 21:00; Status UNV Clopidogrel Bisulfate (Plavix) 75 mg DAILY PO ; Start 03/20/17 at 09:00; Status UNV Finasteride (Proscar) 5 mg HS PO ; Start 03/19/17 at 21:00; Status UNV Furosemide (Lasix) 40 mg DAILY PO ; Start 03/20/17 at 09:00; Status UNV Insulin Glargine (Lantus Inj) 20 units BID SQ ; Start 03/19/17 at 21:00; Status UNV Primidone (Mysoline) 250 mg TID PO ; Start 03/19/17 at 18:00; Status UNV Non-Formulary Medication 1 tab DAILY PO ; Start 03/20/17 at 09:00; Status UNV Non-Formulary Medication 20 mg HS PO ; Start 03/19/17 at 21:00; Status UNV Family History not significant. Social History quit smoking years ago. lives with his . Physical Exam Vital Signs Vital Signs Date Time Temp Pulse Resp B/P Pulse Ox O2 Delivery O2 Flow Rate FiO2 03/19/17 13:57 87 20 108/65 98 Nasal Cannula 2 03/19/17 13:01 84 18 121/72 97 Nasal Cannula 2 03/19/17 12:28 92 Nasal Cannula 2 03/19/17 12:28 92 Nasal Cannula 2 03/19/17 12:03 84 20 133/73 92 Room Air 03/19/17 12:03 83 20 92 Room Air 03/19/17 11:46 97.9 90 20 111/68 90 Physical Exam GENERAL: This is a well-nourished, well-developed patient, in no apparent distress. SKIN: No rashes, ecchymoses or lesions. Cool and dry. HEAD: Atraumatic. Normocephalic. No temporal or scalp tenderness. EYES: Pupils equal round and reactive. Extraocular motions intact. No scleral icterus. No injection or drainage. ENT: Nose without bleeding, purulent drainage or septal hematoma. Throat without erythema, tonsillar hypertrophy or exudate. Uvula midline. Airway patent. NECK: Trachea midline. No JVD or lymphadenopathy. Supple, nontender, no meningeal signs. CARDIOVASCULAR: Regular rate and rhythm without murmurs, gallops, or rubs. RESPIRATORY: diminished air entry at the right base. GASTROINTESTINAL: Abdomen soft, non-tender, nondistended. No hepato-splenomegaly , or palpable masses. No guarding. MUSCULOSKELETAL: Extremities without clubbing, cyanosis, or edema. No joint tenderness, effusion, or edema noted. No calf tenderness. Negative Homans sign bilaterally. NEUROLOGICAL: Awake and alert. Cranial nerves II through XII intact. Motor and sensory grossly within normal limits. Five out of 5 muscle strength in all muscle groups. Normal speech. Laboratory Laboratory Tests Test 03/19/17 11:55 White Blood Count 6.1 Red Blood Count 4.60 Hemoglobin 14.7 Hematocrit 43.4 Mean Corpuscular Volume 94.4 Mean Corpuscular Hemoglobin 31.9 Mean Corpuscular Hemoglobin 33.8 Concent Red Cell Distribution Width 14.3 Platelet Count 178 Mean Platelet Volume 8.0 Neutrophils (%) (Auto) 72.0 Lymphocytes (%) (Auto) 9.8 Monocytes (%) (Auto) 9.6 Eosinophils (%) (Auto) 8.1 Basophils (%) (Auto) 0.5 Neutrophils # (Auto) 4.4 Lymphocytes # (Auto) 0.6 Monocytes # (Auto) 0.6 Eosinophils # (Auto) 0.5 Basophils # (Auto) 0.0 CBC Comment DIFF FINAL Differential Comment Prothrombin Time 11.6 Prothromb Time International 1.0 Ratio Activated Partial 28.3 Thromboplast Time Sodium Level 141 Potassium Level 4.0 Chloride Level 101 Carbon Dioxide Level 32.9 Anion Gap 7 Blood Urea Nitrogen 27 Creatinine 1.90 Estimat Glomerular Filtration 34 Rate Random Glucose 219 Calcium Level 8.8 Total Bilirubin 0.3 Aspartate Amino Transf 44 (AST/SGOT) Alanine Aminotransferase 30 (ALT/SGPT) Alkaline Phosphatase 148 Total Creatine Kinase 442 Creatine Kinase MB 4.9 Creatine Kinase MB % 1.1 Troponin I 0.06 B-Type Natriuretic Peptide 275 Total Protein 7.9 Albumin 3.6 Result Diagram: 03/19/17 1155 03/19/17 1155 Imaging Last Impressions Chest X-Ray 03/19/17 1219 Signed Impressions: Service Date/Time: Sunday, March 19, 2017 13:12 - CONCLUSION: Bilateral lower lung zone opacity similar to the prior study, likely representing atelectasis or scarring. Yogesh Marie MD Assessment and Plan Assessment and Plan A/P - bronchitis with recently diagnosed COPD- failed outpatient therapy continue with neb treatment- start Zithromax- keep on oxygen to keep O2 sat > 90% will consider CT chest and/or pulmonary consult if no improvement within the next 24-48 hrs. -diabetes mellitus; resume home insulin regimen- accu-check with SSI -minimal elevation of troponin with history CAD/ hypertension; denies chest pain - resume home meds will trend the cardiac enzymes -chronic renal insufficiency- at his baseline- will monitor -generalized weakness; consult PT -DVT prophylaxis with SCD's Discussed Condition With ER physician and the patient. Brown Robertson MD Mar 19, 2017 14:18
[2017-03-19] MEDS: AZITHROMYCIN INJ 500 MG in SODIUM CHLOR 0.9% 250 ML INJ 250 ML IV SCH (14:42)
[2017-03-19] MEDS ORDERED: ACETAMINOPHEN 325 MG TAB PO PRN (15:00)
[2017-03-19] MEDS: RESP: ALBUTEROL 2.5 MG/IPRATROPIUM 0.5 MG NEB (SCH) NEB ×2 (15:31→20:39)
[2017-03-19] MEDS: PRIMIDONE 250 MG TAB PO SCH (19:04)
[2017-03-19] MEDS ORDERED: INSULIN GLARGINE 1,000 UNITS/10 ML VIAL SQ SCH (21:00)
[2017-03-19] MEDS: INSULIN DETEMIR 100 UNITS/ML VIAL SQ SCH ×2 (21:00→22:31)
[2017-03-19] MEDS: PANTOPRAZOLE SOD 20 MG DELAYED RELEASE TAB PO SCH (22:23)
[2017-03-19] MEDS: FINASTERIDE 5 MG TAB PO SCH (22:23)
[2017-03-19] MEDS: ATORVASTATIN 40 MG TAB PO SCH (22:23)
[2017-03-20] VITALS (8 sets, daily range): BP systolic 85–113; BP diastolic 55–71; PULSE 80–93; RESP 16–22; TEMP 97.3–98.9; O2SAT 94–98
[2017-03-20] MEDS: RESP: ALBUTEROL 2.5 MG/IPRATROPIUM 0.5 MG NEB (SCH) NEB ×7 (00:20→23:39)
[2017-03-20] MEDS: FUROSEMIDE 40 MG TAB PO SCH (08:22)
[2017-03-20] MEDS: HYOSCYAMINE 0.125 MG TAB PO SCH (08:23)
[2017-03-20] MEDS: CLOPIDOGREL 75 MG TAB PO SCH (08:23)
[2017-03-20] MEDS: PRIMIDONE 250 MG TAB PO SCH ×3 (08:44→17:51)
--- NOTE | 2017-03-20 08:44 | HHI.PR ---
Subjective Remarks feeling better today. still has some cough but he says ' it's not as much'. is afebrile. his appetite is better. noted that had a low sugar earlier today. Objective Vitals Vital Signs Date Time Temp Pulse Resp B/P Pulse Ox O2 Delivery O2 Flow Rate FiO2 03/20/17 08:00 97.5 84 21 93/55 96 03/20/17 07:33 97 Nasal Cannula 2.00 03/20/17 04:57 98.8 80 22 105/57 95 03/20/17 00:54 98.9 85 16 85/56 97 03/19/17 20:39 97 Nasal Cannula 2.00 03/19/17 20:19 97.7 81 14 94/63 97 03/19/17 20:00 75 03/19/17 16:00 96.4 81 16 99/64 98 03/19/17 15:16 86 20 110/67 96 Nasal Cannula 2 03/19/17 14:50 98 Nasal Cannula 2.00 03/19/17 13:57 87 20 108/65 98 Nasal Cannula 2 03/19/17 13:01 84 18 121/72 97 Nasal Cannula 2 03/19/17 12:28 92 Nasal Cannula 2 03/19/17 12:28 92 Nasal Cannula 2 03/19/17 12:03 84 20 133/73 92 Room Air 03/19/17 12:03 83 20 92 Room Air 03/19/17 11:46 97.9 90 20 111/68 90 I/O 03/19/17 03/19/17 03/19/17 03/20/17 03/20/17 03/20/17 07:00 15:00 23:00 07:00 15:00 23:00 Intake Total 365 ml Output Total 100 ml Balance 265 ml Intake Oral 240 ml IV Total 125 ml Output Urine Total 100 ml # Voids 1 2 # Bowel Movements 0 Result Diagram: 03/19/17 1155 03/19/17 1155 Imaging Last Impressions Chest X-Ray 03/19/17 1219 Signed Impressions: Service Date/Time: Sunday, March 19, 2017 13:12 - CONCLUSION: Bilateral lower lung zone opacity similar to the prior study, likely representing atelectasis or scarring. Yogesh Marie MD Objective Remarks GENERAL: This is a well-nourished, well-developed patient, in no apparent distress. CARDIOVASCULAR: Regular rate and regular rhythm without murmurs, gallops, or rubs. RESPIRATORY: occasional cough- GASTROINTESTINAL: Abdomen soft, non-tender, nondistended. Normal, active bowel sounds MUSCULOSKELETAL: Extremities without clubbing, cyanosis, or edema. NEURO: Alert & Oriented x4 to person, place, time, situation. Moves all ext x4 Procedures none Medications and IVs Current Medications Sodium Chloride (NS Flush) 2 ml UNSCH PRN IVF FLUSH AFTER USING IV ACCESS; Start 03/19/17 at 12:30 Albuterol/ Ipratropium (Duoneb Neb) 1 ampule Q15M INH Last administered on 12:30; Start 03/19/17 at 12:30; Stop 03/19/17 at 13:01; Status DC Aspirin (Aspirin Chew) 324 mg ONCE ONCE CHEW Last administered on 03/19/17 13: 52; Start 03/19/17 at 14:00; Stop 03/19/17 at 14:01; Status DC Dextrose (D50w (Vial) Inj) 50 ml UNSCH PRN IV HYPOGLYCEMIA-SEE COMMENTS Last administered on 03/20/17 06:55; Start 03/19/17 at 14:15 Glucagon (Glucagon Inj) 1 mg UNSCH PRN OTHER HYPOGLYCEMIA-SEE COMMENTS; Start 03/19/17 at 14:15 Insulin Aspart (NovoLOG SUPPLEMENTAL SCALE) 1 ACHS SLIDING SCALE SQ ; Start 03/19/17 at 16:00; Status Hold Atorvastatin Calcium (Lipitor) 40 mg HS PO Last administered on 03/19/17 22:23 ; Start 03/19/17 at 21:00 Clopidogrel Bisulfate (Plavix) 75 mg DAILY PO Last administered on 03/20/17 08: 23; Start 03/20/17 at 09:00 Finasteride (Proscar) 5 mg HS PO Last administered on 03/19/17 22:23; Start 03/19/17 at 21:00 Furosemide (Lasix) 40 mg DAILY PO Last administered on 03/20/17 08:22; Start at 09:00 Insulin Glargine (Lantus Inj) 20 units BID SQ ; Start 03/19/17 at 21:00; Stop 03/19/17 at 21:05; Status DC Primidone (Mysoline) 250 mg TID PO Last administered on 03/19/17 19:04; Start 03/19/17 at 18:00 Hyoscyamine Sulfate (Levsin) 0.125 mg DAILY PO Last administered on 03/20/17 08 :23; Start 03/20/17 at 09:00 Pantoprazole Sodium (Protonix) 20 mg HS PO Last administered on 03/19/17 22:23 ; Start 03/19/17 at 21:00 Albuterol/ Ipratropium (Duoneb Neb) 1 ampule Q4HR NEB NEB Last administered on 03/20/17 07:31; Start 03/19/17 at 16:00 Albuterol Sulfate 1.25 mg 1.25 mg Q2HR NEB PRN NEB SHORTNESS OF BREATH; Start 03/19/17 at 14:15 Azithromycin/ Sodium Chloride (Zithromax Inj/ NS 250 ml Inj) 250 ml @ 250 mls/ hr Q24H IV Last administered on 03/19/17 14:42; Start 03/19/17 at 15:00 Acetaminophen (Tylenol) 650 mg Q4H PRN PO FEVER/PAIN; Start 03/19/17 at 15:00 Insulin Detemir (Levemir Inj) 20 units BID SQ Last administered on 03/19/17 22: 31; Start 03/19/17 at 09:15; Status Hold A/P Assessment and Plan A/P - bronchitis with recently diagnosed COPD- failed outpatient therapy continue with neb treatment- start Zithromax- add low dose IV steroids- keep on oxygen to keep O2 sat > 90% -diabetes mellitus with hypoglycemic episode; will decrease levemir- -minimal elevation of troponin with history CAD/ hypertension; denies chest pain - resume home meds the trend of cardiac enzymes stable. -chronic renal insufficiency- at his baseline- will monitor -generalized weakness; consulted PT -DVT prophylaxis with SCD's Discharge Planning dc home within the next one-two days if continues to improve-pending PT evaluation. Brown Robertson MD Mar 20, 2017 08:44
[2017-03-20] MEDS ORDERED: SODIUM CHLORID 0.9% 500 ML INJ 500 ML IV ONE (09:00)
[2017-03-20] MEDS: methylPREDNISolone SOD SUCC 40 MG/1 ML VIAL IV PUSH SCH ×3 (09:12→21:00)
[2017-03-20] MEDS: guaiFENesin E.R. 600 MG TAB PO SCH ×2 (12:56→20:59)
[2017-03-20] MEDS: AZITHROMYCIN INJ 500 MG in SODIUM CHLOR 0.9% 250 ML INJ 250 ML IV SCH (14:44)
--- NOTE | 2017-03-20 15:18 | EKG ---
Date Performed: 03/19/2017 Time Performed: 12:22:18 PTAGE: 81 years EKG: Left axis deviation Intraventricular conduction disturbance Poor initial anterior forces Di ffuse nonspecific ST-T wave change Possible LVH Since PREVIOUS TRACING 06/22/2016, no significant change. PREVIOUS TRACIN06/22/2016 11.34 DOCTOR: Burton Carpenter Interpretating Date/Time 03/20/2017 15:16:47
[2017-03-20] MEDS ORDERED: INSULIN ASPART 1,000 UNITS/10 ML VIAL SQ ONE (16:45)
[2017-03-20] MEDS: PANTOPRAZOLE SOD 20 MG DELAYED RELEASE TAB PO SCH (20:59)
[2017-03-20] MEDS: ATORVASTATIN 40 MG TAB PO SCH (20:59)
[2017-03-20] MEDS: FINASTERIDE 5 MG TAB PO SCH (20:59)
[2017-03-20] MEDS: INSULIN DETEMIR 100 UNITS/ML VIAL SQ SCH (21:43)
[2017-03-20] MEDS: INSULIN ASPART SUPPLEMENTAL SCALE SQ SCH (21:43)
[2017-03-21] VITALS (9 sets, daily range): BP systolic 109–131; BP diastolic 71–82; PULSE 76–91; RESP 14–18; TEMP 96.6–98; O2SAT 94–99
[2017-03-21] MEDS: RESP: ALBUTEROL 2.5 MG/IPRATROPIUM 0.5 MG NEB (SCH) NEB ×6 (03:22→23:31)
[2017-03-21] MEDS: methylPREDNISolone SOD SUCC 40 MG/1 ML VIAL IV PUSH SCH ×3 (05:15→21:12)
[2017-03-21] MEDS: CLOPIDOGREL 75 MG TAB PO SCH (08:34)
[2017-03-21] MEDS: PRIMIDONE 250 MG TAB PO SCH ×3 (08:34→17:35)
[2017-03-21] MEDS: FUROSEMIDE 40 MG TAB PO SCH (08:34)
[2017-03-21] MEDS: HYOSCYAMINE 0.125 MG TAB PO SCH (08:34)
[2017-03-21] MEDS: guaiFENesin E.R. 600 MG TAB PO SCH ×2 (08:35→21:12)
[2017-03-21] MEDS: INSULIN ASPART SUPPLEMENTAL SCALE SQ SCH ×4 (08:38→21:00)
--- NOTE | 2017-03-21 09:37 | HHI.PR ---
Subjective Remarks looks and feels more comfortable today. he says that he can sleep better and his appetite is better. has occasional cough. no fever. Objective Vitals Vital Signs Date Time Temp Pulse Resp B/P Pulse Ox O2 Delivery O2 Flow Rate FiO2 03/21/17 08:00 97.1 76 18 116/71 96 03/21/17 07:25 95 Nasal Cannula 2.00 03/21/17 04:56 97.9 80 14 116/79 94 03/21/17 00:49 98.0 79 16 109/82 95 03/20/17 21:49 98.3 80 22 103/61 98 03/20/17 19:55 97 Nasal Cannula 2.00 03/20/17 16:00 97.3 93 21 110/71 94 03/20/17 12:00 97.9 84 20 113/68 95 I/O 03/20/17 03/20/17 03/20/17 03/21/17 03/21/17 03/21/17 07:00 15:00 23:00 07:00 15:00 23:00 Intake Total 700 ml Output Total 1000 ml Balance -300 ml Intake Oral 700 ml Output Urine Total 1000 ml # Voids 2 1 # Bowel Movements 0 Result Diagram: 03/19/17 1155 03/19/17 1155 Imaging Last Impressions Chest X-Ray 03/19/17 1219 Signed Impressions: Service Date/Time: Sunday, March 19, 2017 13:12 - CONCLUSION: Bilateral lower lung zone opacity similar to the prior study, likely representing atelectasis or scarring. Yogesh Marie MD Objective Remarks GENERAL: This is a well-nourished, well-developed patient, in no apparent distress. CARDIOVASCULAR: Regular rate and regular rhythm without murmurs, gallops, or rubs. RESPIRATORY: occasional cough- GASTROINTESTINAL: Abdomen soft, non-tender, nondistended. Normal, active bowel sounds MUSCULOSKELETAL: Extremities without clubbing, cyanosis, or edema. NEURO: Alert & Oriented x4 to person, place, time, situation. Moves all ext x4 Procedures none Medications and IVs Current Medications Sodium Chloride (NS Flush) 2 ml UNSCH PRN IVF FLUSH AFTER USING IV ACCESS; Start 03/19/17 at 12:30 Albuterol/ Ipratropium (Duoneb Neb) 1 ampule Q15M INH Last administered on 12:30; Start 03/19/17 at 12:30; Stop 03/19/17 at 13:01; Status DC Aspirin (Aspirin Chew) 324 mg ONCE ONCE CHEW Last administered on 03/19/17 13: 52; Start 03/19/17 at 14:00; Stop 03/19/17 at 14:01; Status DC Dextrose (D50w (Vial) Inj) 50 ml UNSCH PRN IV HYPOGLYCEMIA-SEE COMMENTS Last administered on 03/20/17 06:55; Start 03/19/17 at 14:15 Glucagon (Glucagon Inj) 1 mg UNSCH PRN OTHER HYPOGLYCEMIA-SEE COMMENTS; Start 03/19/17 at 14:15 Insulin Aspart (NovoLOG SUPPLEMENTAL SCALE) 1 ACHS SLIDING SCALE SQ Last administered on 03/21/17 08:38; Start 03/19/17 at 16:00 Atorvastatin Calcium (Lipitor) 40 mg HS PO Last administered on 03/20/17 20:59 ; Start 03/19/17 at 21:00 Clopidogrel Bisulfate (Plavix) 75 mg DAILY PO Last administered on 03/21/17 08: 34; Start 03/20/17 at 09:00 Finasteride (Proscar) 5 mg HS PO Last administered on 03/20/17 20:59; Start 03/19/17 at 21:00 Furosemide (Lasix) 40 mg DAILY PO Last administered on 03/21/17 08:34; Start at 09:00 Insulin Glargine (Lantus Inj) 20 units BID SQ ; Start 03/19/17 at 21:00; Stop 03/19/17 at 21:05; Status DC Primidone (Mysoline) 250 mg TID PO Last administered on 03/21/17 08:34; Start 03/19/17 at 18:00 Hyoscyamine Sulfate (Levsin) 0.125 mg DAILY PO Last administered on 03/21/17 08 :34; Start 03/20/17 at 09:00 Pantoprazole Sodium (Protonix) 20 mg HS PO Last administered on 03/20/17 20:59 ; Start 03/19/17 at 21:00 Albuterol/ Ipratropium (Duoneb Neb) 1 ampule Q4HR NEB NEB Last administered on 03/21/17 07:25; Start 03/19/17 at 16:00 Albuterol Sulfate 1.25 mg 1.25 mg Q2HR NEB PRN NEB SHORTNESS OF BREATH; Start 03/19/17 at 14:15 Azithromycin/ Sodium Chloride (Zithromax Inj/ NS 250 ml Inj) 250 ml @ 250 mls/ hr Q24H IV Last administered on 03/20/17 14:44; Start 03/19/17 at 15:00 Acetaminophen (Tylenol) 650 mg Q4H PRN PO FEVER/PAIN; Start 03/19/17 at 15:00 Insulin Detemir (Levemir Inj) 20 units BID SQ Last administered on 03/19/17 22: 31; Start 03/19/17 at 09:15; Stop 03/20/17 at 08:45; Status DC Insulin Detemir 10 units 10 units HS SQ Last administered on 03/20/17 21:43; Start 03/20/17 at 21:00 Sodium Chloride (NS 500 ml Inj) 500 ml @ 50 mls/hr Q10H ONCE IV Last administered on 03/20/17 09:15; Start 03/20/17 at 09:00; Stop 03/20/17 at 18:59; Status DC Methylprednisolone Sodium Succinate (SoluMEDROL INJ) 20 mg Q8HR IV PUSH Last administered on 03/21/17 05:15; Start 03/20/17 at 09:00 Guaifenesin (Mucinex Er) 600 mg BID PO Last administered on 03/21/17 08:35; Start 03/20/17 at 13:00 Insulin Aspart (NovoLOG INJ) 9 units ONCE ONCE SQ Last administered on 16:43; Start 03/20/17 at 16:45; Stop 03/20/17 at 16:46; Status DC A/P Assessment and Plan A/P - bronchitis with recently diagnosed COPD- failed outpatient therapy continue with neb treatment- started Zithromax- continue low dose IV steroids - keep on oxygen to keep O2 sat > 90% walk test today. -diabetes mellitus with hypoglycemic episode- with no recurrence; decreased levemir- -minimal elevation of troponin with history CAD/ hypertension; denies chest pain - resume home meds the trend of cardiac enzymes stable. -chronic renal insufficiency- at his baseline- will monitor -generalized weakness; consulted PT -DVT prophylaxis with SCD's Discharge Planning possible discharge tomorrow if stable. case management for dc planning; [facility] vs rehab. Brown Robertson MD Mar 21, 2017 09:37
--- NOTE | 2017-03-21 09:38 | HHI.FF ---
Face to Face Verification Diagnosis: (1) Bronchitis (2) SOB (shortness of breath) (3) Fatigue Physical Therapy Order: Evaluate and Treat Home Health Nursing Order: Medical education Signs/symptoms of disease process Medication education-adverse effect Nursing assessment with vital signs I have seen patient Eduar Prince Upfold on 03/21/17. My clinical findings support the need for the requested home health care services because: Ltd mobility - disease progression I certify that my clinical findings support that this patient is homebound because: Unsteady gait/balance Brown Robertson MD Mar 21, 2017 09:38
--- NOTE | 2017-03-21 09:40 | HHI.DCPOC ---
Discharge Care Plan Diagnosis: (1) Bronchitis (2) Fatigue Your Health Problems Are: Cough Shortness of Breath Goals to Promote Your Health * To prevent worsening of your condition and complications * To maintain your health at the optimal level Directions to Meet Your Goals Take your medications as prescribed Follow your dietary instruction Follow activity as directed Keep your appointments as scheduled Take your immunizations and boosters as scheduled If your symptoms worsen call your PCP, if no PCP go to Urgent Care Center or Emergency Room Smoking is Dangerous to Your Health. Avoid second hand smoke Call the 24-hour hour crisis hotline for domestic abuse at Brown Robertson MD Mar 21, 2017 09:40
[2017-03-21] MEDS ORDERED: LANTUS2P SQ (09:42)
[2017-03-21] MEDS ORDERED: ZITH250T PO ×2 (09:42→09:45)
[2017-03-21] MEDS ORDERED: PRED5TAB PO (09:42)
[2017-03-21] MEDS ORDERED: OXYGENTANK NAS.CANULA (11:35)
--- NOTE | 2017-03-21 13:23 | HHI.FF ---
Face to Face Verification Diagnosis: (1) Hypoxia (2) Bronchitis Home Health Nursing Order: Medical education Signs/symptoms of disease process Oxygen administration education Medication education-adverse effect Nursing assessment with vital signs I have seen patient Eduar Prince Upfold on 03/21/17. My clinical findings support the need for the requested home health care services because: Ltd mobility - disease progression I certify that my clinical findings support that this patient is homebound because: Unsteady gait/balance Brown Robertson MD Mar 21, 2017 13:23
[2017-03-21] MEDS: AZITHROMYCIN INJ 500 MG in SODIUM CHLOR 0.9% 250 ML INJ 250 ML IV SCH (15:14)
[2017-03-21] MEDS: ATORVASTATIN 40 MG TAB PO SCH (21:12)
[2017-03-21] MEDS: PANTOPRAZOLE SOD 20 MG DELAYED RELEASE TAB PO SCH (21:12)
[2017-03-21] MEDS: FINASTERIDE 5 MG TAB PO SCH (21:12)
[2017-03-21] MEDS: INSULIN DETEMIR 100 UNITS/ML VIAL SQ SCH (21:19)
[2017-03-22] VITALS: BP 99/60; PULSE 90; RESP 18; TEMP 97.5; O2SAT 97
[2017-03-22] MEDS: RESP: ALBUTEROL 2.5 MG/IPRATROPIUM 0.5 MG NEB (SCH) NEB ×3 (03:28→11:16)
[2017-03-22 04:00] VITALS: BP 115/73; PULSE 76; RESP 18; TEMP 95.6; O2SAT 96
[2017-03-22] MEDS: methylPREDNISolone SOD SUCC 40 MG/1 ML VIAL IV PUSH SCH (06:09)
[2017-03-22 07:56] VITALS: O2SAT 100
[2017-03-22 08:00] VITALS: BP 135/77; PULSE 76; PULSE 84; RESP 21; TEMP 97.5; O2SAT 99
[2017-03-22] MEDS: HYOSCYAMINE 0.125 MG TAB PO SCH (08:42)
[2017-03-22] MEDS: guaiFENesin E.R. 600 MG TAB PO SCH (08:42)
[2017-03-22] MEDS: PRIMIDONE 250 MG TAB PO SCH ×2 (08:42→12:44)
[2017-03-22] MEDS: CLOPIDOGREL 75 MG TAB PO SCH (08:42)
[2017-03-22] MEDS: FUROSEMIDE 40 MG TAB PO SCH (08:42)
--- NOTE | 2017-03-22 08:43 | HHI.PR ---
Subjective Remarks resting comfortably with no distress. says that his congestion is better and now can sleep better. no fever. d/w the RN and no acute issues over night. Objective Vitals Vital Signs Date Time Temp Pulse Resp B/P Pulse Ox O2 Delivery O2 Flow Rate FiO2 03/22/17 08:00 97.5 84 21 135/77 99 03/22/17 07:56 100 Nasal Cannula 2.00 03/22/17 04:00 95.6 76 18 115/73 96 03/22/17 00:00 97.5 90 18 99/60 97 03/21/17 20:00 96.6 87 18 131/82 97 03/21/17 20:00 87 03/21/17 19:46 98 Nasal Cannula 2.00 03/21/17 16:22 96.9 91 18 122/75 96 03/21/17 16:00 96.9 91 18 122/75 96 03/21/17 12:00 97.4 89 18 122/71 99 03/21/17 10:35 2.00 I/O 03/21/17 03/21/17 03/21/17 03/22/17 03/22/17 03/22/17 07:00 15:00 23:00 07:00 15:00 23:00 Intake Total 750 ml 240 ml Output Total 300 ml 400 ml Balance 450 ml 240 ml -400 ml Intake Oral 750 ml 240 ml Output Urine Total 300 ml 400 ml # Voids 1 7 # Bowel Movements 0 Result Diagram: 03/19/17 1155 03/19/17 1155 Imaging Last Impressions Chest X-Ray 03/19/17 1219 Signed Impressions: Service Date/Time: Sunday, March 19, 2017 13:12 - CONCLUSION: Bilateral lower lung zone opacity similar to the prior study, likely representing atelectasis or scarring. Yogesh Marie MD Objective Remarks GENERAL: This is a well-nourished, well-developed patient, in no apparent distress. CARDIOVASCULAR: Regular rate and regular rhythm without murmurs, gallops, or rubs. RESPIRATORY: occasional cough- GASTROINTESTINAL: Abdomen soft, non-tender, nondistended. Normal, active bowel sounds MUSCULOSKELETAL: Extremities without clubbing, cyanosis, or edema. NEURO: Alert & Oriented x4 to person, place, time, situation. Moves all ext x4 Procedures none Medications and IVs Current Medications Sodium Chloride (NS Flush) 2 ml UNSCH PRN IVF FLUSH AFTER USING IV ACCESS; Start 03/19/17 at 12:30 Albuterol/ Ipratropium (Duoneb Neb) 1 ampule Q15M INH Last administered on 12:30; Start 03/19/17 at 12:30; Stop 03/19/17 at 13:01; Status DC Aspirin (Aspirin Chew) 324 mg ONCE ONCE CHEW Last administered on 03/19/17 13: 52; Start 03/19/17 at 14:00; Stop 03/19/17 at 14:01; Status DC Dextrose (D50w (Vial) Inj) 50 ml UNSCH PRN IV HYPOGLYCEMIA-SEE COMMENTS Last administered on 03/20/17 06:55; Start 03/19/17 at 14:15 Glucagon (Glucagon Inj) 1 mg UNSCH PRN OTHER HYPOGLYCEMIA-SEE COMMENTS; Start 03/19/17 at 14:15 Insulin Aspart (NovoLOG SUPPLEMENTAL SCALE) 1 ACHS SLIDING SCALE SQ Last administered on 03/21/17 21:00; Start 03/19/17 at 16:00 Atorvastatin Calcium (Lipitor) 40 mg HS PO Last administered on 03/21/17 21:12 ; Start 03/19/17 at 21:00 Clopidogrel Bisulfate (Plavix) 75 mg DAILY PO Last administered on 03/21/17 08: 34; Start 03/20/17 at 09:00 Finasteride (Proscar) 5 mg HS PO Last administered on 03/21/17 21:12; Start 03/19/17 at 21:00 Furosemide (Lasix) 40 mg DAILY PO Last administered on 03/21/17 08:34; Start at 09:00 Insulin Glargine (Lantus Inj) 20 units BID SQ ; Start 03/19/17 at 21:00; Stop 03/19/17 at 21:05; Status DC Primidone (Mysoline) 250 mg TID PO Last administered on 03/21/17 17:35; Start 03/19/17 at 18:00 Hyoscyamine Sulfate (Levsin) 0.125 mg DAILY PO Last administered on 03/21/17 08 :34; Start 03/20/17 at 09:00 Pantoprazole Sodium (Protonix) 20 mg HS PO Last administered on 03/21/17 21:12 ; Start 03/19/17 at 21:00 Albuterol/ Ipratropium (Duoneb Neb) 1 ampule Q4HR NEB NEB Last administered on 03/22/17 07:54; Start 03/19/17 at 16:00 Albuterol Sulfate 1.25 mg 1.25 mg Q2HR NEB PRN NEB SHORTNESS OF BREATH; Start 03/19/17 at 14:15 Azithromycin/ Sodium Chloride (Zithromax Inj/ NS 250 ml Inj) 250 ml @ 250 mls/ hr Q24H IV Last administered on 03/21/17 15:14; Start 03/19/17 at 15:00 Acetaminophen (Tylenol) 650 mg Q4H PRN PO FEVER/PAIN; Start 03/19/17 at 15:00 Insulin Detemir (Levemir Inj) 20 units BID SQ Last administered on 03/19/17 22: 31; Start 03/19/17 at 09:15; Stop 03/20/17 at 08:45; Status DC Insulin Detemir 10 units 10 units HS SQ Last administered on 03/21/17 21:19; Start 03/20/17 at 21:00 Sodium Chloride (NS 500 ml Inj) 500 ml @ 50 mls/hr Q10H ONCE IV Last administered on 03/20/17 09:15; Start 03/20/17 at 09:00; Stop 03/20/17 at 18:59; Status DC Methylprednisolone Sodium Succinate (SoluMEDROL INJ) 20 mg Q8HR IV PUSH Last administered on 03/22/17 06:09; Start 03/20/17 at 09:00 Guaifenesin (Mucinex Er) 600 mg BID PO Last administered on 03/21/17 21:12; Start 03/20/17 at 13:00 Insulin Aspart (NovoLOG INJ) 9 units ONCE ONCE SQ Last administered on 16:43; Start 03/20/17 at 16:45; Stop 03/20/17 at 16:46; Status DC A/P Assessment and Plan A/P - bronchitis with recently diagnosed COPD- failed outpatient therapy- now improving. continue with neb treatment- started Zithromax- switch to prednisone- keep on oxygen to keep O2 sat > 90% walk test performed and he needs home oxygen. -diabetes mellitus with hypoglycemic episode- with no recurrence; decreased levemir- -minimal elevation of troponin with history CAD/ hypertension; denies chest pain - resumed home meds the trend of cardiac enzymes stable. -chronic renal insufficiency- at his baseline- will monitor -generalized weakness; consulted PT -DVT prophylaxis with SCD's Discharge Planning dc home today with HHC and home oxygen. see med list. f/u; pcp and pulmonary. d/w the patient and RN. previously d/w the case management. time spent 35 min. Brown Robertson MD Mar 22, 2017 08:43
--- NOTE | 2017-03-22 08:44 | HHI.DS ---
Discharge Summary Admission Date Mar 19, 2017 at 13:47 Discharge Date: Mar 22, 2017 Admitting Diagnosis Hypoxia, elevated cardiac enzymes (1) Bronchitis ICD Code: J40 Diagnosis: Principal Procedures none Brief History - From Admission patient is a 81 y/o male with reported recently diagnosed COPD who presented to ER with productive cough. he says that his cough started while back. cough is productive of yellowish/ whitish sputum.he denies any fever, chills or night sweats. he says that he doesn't have that much of appetite and he's feeling very weak. he's being followed up by . he says that he's been getting IV antibiotics and steroids in the office for the past two weeks with no significant relief. he was referred to ER for further evaluation. he received neb treatment in ER and at the time of my evaluation he was feeling better. he denies chest pain. CBC/BMP: 03/19/17 1155 03/19/17 1155 Significant Findings Laboratory Tests Test 03/19/17 11:55 Neutrophils (%) (Auto) 72.0 % (16.0-70.0) Monocytes (%) (Auto) 9.6 % (0.0-8.0) Eosinophils (%) (Auto) 8.1 % (0.0-4.0) Lymphocytes # (Auto) 0.6 TH/MM3 (1.0-4.8) Eosinophils # (Auto) 0.5 TH/MM3 (0-0.4) Carbon Dioxide Level 32.9 MEQ/L (21.0-32.0) Blood Urea Nitrogen 27 MG/DL (7-18) Creatinine 1.90 MG/DL (0.60-1.30) Estimat Glomerular Filtration 34 ML/MIN (>89) Rate Random Glucose 219 MG/DL (74-106) Aspartate Amino Transf 44 U/L (15-37) (AST/SGOT) Alkaline Phosphatase 148 U/L (45-117) Total Creatine Kinase 442 U/L (39-308) Creatine Kinase MB 4.9 NG/ML (0.5-3.6) Troponin I 0.06 NG/ML (0.02-0.05) B-Type Natriuretic Peptide 275 PG/ML (0-100) Imaging Last Impressions Chest X-Ray 03/19/17 1219 Signed Impressions: Service Date/Time: Wednesday, March 19, 2017 13:12 - CONCLUSION: Bilateral lower lung zone opacity similar to the prior study, likely representing atelectasis or scarring. Yogesh Marie MD PE at Discharge GENERAL: This is a well-nourished, well-developed patient, in no apparent distress. CARDIOVASCULAR: Regular rate and regular rhythm without murmurs, gallops, or rubs. RESPIRATORY: occasional cough- GASTROINTESTINAL: Abdomen soft, non-tender, nondistended. Normal, active bowel sounds MUSCULOSKELETAL: Extremities without clubbing, cyanosis, or edema. NEURO: Alert & Oriented x4 to person, place, time, situation. Moves all ext x4 Hospital Course - bronchitis with recently diagnosed COPD- failed outpatient therapy- now improving. continue with neb treatment- started Zithromax- switch to prednisone- keep on oxygen to keep O2 sat > 90% walk test performed and he needs home oxygen. -diabetes mellitus with hypoglycemic episode- with no recurrence; decreased levemir- -minimal elevation of troponin with history CAD/ hypertension; denies chest pain - resumed home meds the trend of cardiac enzymes stable. -chronic renal insufficiency- at his baseline- will monitor -generalized weakness; consulted PT -DVT prophylaxis with SCD's Pt Condition on Discharge: Fair Discharge Disposition: Disch w/ Home Health Serv Discharge Time: > 30 minutes Discharge Instructions DIET: Follow Instructions for: Heart Healthy Diet, Diabetic Diet Activities you can perform: Regular-No Restrictions Follow up Referrals: PCP Follow-up New Medications: Azithromycin (Zithromax) 250 Mg Tab 250 MG PO DAILY Infection #3 Ref 0 TAB Oxygen tank (Oxygen tank) 1 Ea Tank 2 LITER SUZANNE.CANULA CONTINUOUS Oxygen Concentrator Portable Gaseous 2 L/min via Nasal Cannula Continuous For 99 months HYPOXEMIA PREVENTION #2 CYLINDER Prednisone (Prednisone) 5 Mg Tab 5 MG PO DIRECTED 40 mg po daily for two days then 30 mg po daily for two days then 20 mg po daily for two days then 10 mg po daily for two days then 5 mg po daily for two days then stop. Shortness of Breath Days 10 Ref 0 TAB Changed Medications: Insulin Glargine Inj (Lantus Inj) 1,000 Unit/10 Ml Vial 10 UNITS SQ BID Blood Sugar Management Days 30 Ref 0 VIAL (Changed from: 20 UNITS) Continued Medications: Albuterol 8.5 GM Inh (Proair Hfa 8.5 GM Inh) 90 Mcg/Act Aer 2 PUFF INH Q4-6H 108 mcg/actuation PRN SHORTNESS OF BREATH #1 Ref 0 INHALER Atorvastatin (Atorvastatin) 40 Mg Tab 40 MG PO HS Cholesterol Management #[address] Ref [address] (Dulcolax DR) 5 Mg Tabdr 5 MG PO DAILY PRN CONSTIPATION #30 Ref 0 TAB Cholecalciferol (Vitamin D3) 1,000 Unit Tab 1000 UNITS PO DAILY Nutritional Supplement #1 Ref 0 BOTTLE Clopidogrel (Plavix) 75 Mg Tab 75 MG PO DAILY Blood Clot Prevention #30 Ref 0 TAB Finasteride (Finasteride) 5 Mg Tab 5 MG PO HS Do not crush. Manage Prostate Problems #30 Ref 0 TAB Furosemide (Lasix) 40 Mg Tab 40 MG PO DAILY #30 Ref 0 TAB Hyoscyamine Sulfate (Oscimin) 0.125 Mg Tab 1 TAB PO DAILY Multiple Vitamins W/ Minerals (Preservision Areds) 1 Tab 1 TAB PO DAILY Nutritional Supplement Ref 0 TAB Nitroglycerin SL (Nitrostat SL) 0.4 Mg Subl 0.4 MG SL DIRECTED 1 tablet under the tongue as needed for chest pain. Repeat every 5 minutes for a total of 3 DOSES or call 911 if NO relief. PRN CHEST PAIN #100 Ref 0 TAB.SL Omeprazole (Omeprazole) 20 Mg Tab 20 MG PO HS #30 Ref 0 TAB Primidone (Primidone) 50 Mg Tab 250 MG PO TID Control Seizures #180 Ref 0 TAB ([Nebulizer]) 1 INH TID Discontinued Medications: Prednisone (Prednisone) 20 Mg Tab 40 MG PO DAILY Days 4 TAB Brown Robertson MD Mar 22, 2017 08:43
[2017-03-22] MEDS: INSULIN ASPART SUPPLEMENTAL SCALE SQ SCH ×2 (08:45→11:00)
== END 2017-03-22 13:14 | disposition home or self-care (01) ==
LOC: PHED 11:44 → INTOOBSV 13:47 → PHEDA 13:47 → PH3A 15:23 → PH3B 15:27
PROVIDERS: ADMIT Internal Medicine; ATTEND Internal Medicine
DX: J40 Bronchitis, not specified as acute or chronic (principal); J44.9 Chronic obstructive pulmonary disease, unspecified; I13.0 Hypertensive heart and chronic kidney disease with heart failure and stage 1 through stage 4 chronic kidney disease, or unspecified chronic kidney disease; E11.22 Type 2 diabetes mellitus with diabetic chronic kidney disease; E11.649 Type 2 diabetes mellitus with hypoglycemia without coma; N18.9 Chronic kidney disease, unspecified; I50.9 Heart failure, unspecified; I25.10 Atherosclerotic heart disease of native coronary artery without angina pectoris; M19.90 Unspecified osteoarthritis, unspecified site; E78.00 Pure hypercholesterolemia, unspecified; K21.9 Gastro-esophageal reflux disease without esophagitis; Z95.5 Presence of coronary angioplasty implant and graft; Z79.02 Long term (current) use of antithrombotics/antiplatelets; Z88.8 Allergy status to other drugs, medicaments and biological substances; Z91.040 Latex allergy status; Z79.4 Long term (current) use of insulin
CPT/HCPCS: 71020; 80053; 82550; 82552; 82948; 83880; 84484; 85025; 85610; 85730; 93005; 94620; 94640; 94664; 94667; 94668; 96372; 96374; 96375; 97163; 99285; G0378; G8987; G8988; J0456; J1815; J2920; J7040; J7050

== ENCOUNTER 2017-07-13 21:27 | Observation (INO) | payer MEDICARE, OTHER ==
[~2017-07-13] VITALS: Ht 180.3 cm; Wt 66.9 kg
[~2017-07-13 21:27] MED LIST changes: -ACET-534 PO; +DULC5TAB PO; -LEVA500T PO; +NEBUMIS6 INH; +OCUVTAB4 PO; +OXYGENTANK NAS.CANULA; -PRED20 PO; +PRED5TAB PO; -PRIM250T5 PO; +PRIM50TA5 PO; +VITA100018 PO; +ZITH250T PO; +[UNRECOGNIZED DRUG - CODE] PO
[2017-07-13 21:44] VITALS: BP 136/79; PULSE 93; RESP 20; TEMP 97.7; O2SAT 94
[2017-07-13] MEDS ORDERED: SODIUM CHLORIDE 0.9% FLUSH 10 ML FLUSH IVF PRN (21:45)
[2017-07-13] MEDS: RESP: ALBUTEROL 2.5 MG/IPRATROPIUM 0.5 MG NEB (SCH) INH (21:45)
[2017-07-13] MEDS ORDERED: methylPREDNISolone SOD SUCC 125 MG/2 ML VIAL IV PUSH ONE (21:45)
[2017-07-13 21:47] VITALS: O2SAT 94
--- NOTE | 2017-07-13 21:48 | PD ---
HPI Chief Complaint: Respiratory Symptoms Time Seen by Provider: 21:37 Travel History International Travel<30 days: No Contact w/Intl Traveler<30days: No Traveled to known affect area: No History of Present Illness HPI 81-year-old male complains of shortness of breath. Patient has history of COPD. Patient states that he has a chronic productive cough. Patient states that the cough is worse for the past several days. Patient has increasing short of breath today. Patient denies any fever chills. Patient denies any chest pain. Patient denies abdominal pain. Patient denies any nausea vomiting diarrhea. Patient has been using inhaler and nebulizer treatment home. Patient has history of patient has history of CAD status post stent placement. Patient also has history of CHF, diabetes, DVT and PE, GERD, hypertension, hypothyroidism and BPH. PFSH Past Medical History Hx Anticoagulant Therapy: Yes (PLAVIX) Arthritis: Yes Asthma: Yes Autoimmune Disease: No Anxiety: No Depression: No Cancer: No Cardiac Catheterization: Yes Cardiovascular Problems: Yes (htn on meds, ME x 1 with 3 stents. Hx of PE) High Cholesterol: Yes Chest Pain: No Congestive Heart Failure: Yes COPD: Yes Coronary Artery Disease: Yes Diabetes: Yes Diminished Hearing: Yes Deep Vein Thrombosis: Yes (BILAT PE) Gastrointestinal Disorders: Yes GERD: Yes (RARELY) Genitourinary: Yes (ENLARGED PROSTATE) Hiatal Hernia: No Hypertension: Yes Immune Disorder: Yes (SHINGLES) Musculoskeletal: Yes Neurologic: No Psychiatric: No Reproductive: No Respiratory: Yes (PE) Immunizations Current: Yes Sleep Apnea: No Thyroid Disease: Yes (HYPOTHYROID NOT CURRENTLY TAKING MEDS PER DRCarolin ) Ulcer: Yes (HX OF) Past Surgical History Abdominal Surgery: Yes (HUE INGUINAL HERNIA REPAIR) Coronary Stent: Yes (2006- X1 LAD, AND SEOT 2015/X3) Ear Surgery: No Endocrine Surgery: No Eye Surgery: No Genitourinary Surgery: No Gynecologic Surgery: No Oral Surgery: No Thoracic Surgery: Yes (RT LUNG BIOPSY ) Other Surgery: Yes (HUE HERNIA) Social History Alcohol Use: No Tobacco Use: No Substance Use: No Allergies-Medications (Allergen,Severity, Reaction): Coded Allergies: insulin aspart (Unverified Allergy, Severe, NPH SPECIFIC RASH - ABLE TO TAKE HUMALOG, 06/01/17) insulin aspart protamine human (Unverified Allergy, Severe, NPH SPECIFIC RASH - ABLE TO TAKE HUMALOG, 06/01/17) insulin detemir (Unverified Allergy, Severe, NPH SPECIFIC RASH - ABLE TO TAKE HUMALOG, 06/01/17) insulin glargine (Unverified Allergy, Severe, NPH SPECIFIC RASH - ABLE TO TAKE HUMALOG, 06/01/17) insulin isophane (NPH) (Unverified Allergy, Severe, NPH SPECIFIC RASH - ABLE TO TAKE HUMALOG, 06/01/17) insulin lispro (Unverified Allergy, Severe, NPH SPECIFIC RASH - ABLE TO TAKE HUMALOG, 06/01/17) insulin regular (Unverified Allergy, Severe, NPH SPECIFIC RASH - ABLE TO TAKE HUMALOG, 06/01/17) latex (Unverified Allergy, Severe, Rash, 06/01/17) tiotropium (Unverified Allergy, Severe, DIFFICULTY URINATING, 06/01/17) ciprofloxacin (Verified Allergy, Intermediate, 07/13/17) sores in mouth prednisone (Verified Allergy, Intermediate, 07/13/17) heartburn/hiccups Uncoded Allergies: FLONASE (Allergy, Severe, 02/11/17) . Reported Meds & Prescriptions Reported Meds & Active Scripts Active Oxygen tank (Oxygen) 1 Ea Tank 2 Liter SUZANNE.CANULA CONTINUOUS Oxygen Concentrator Portable Gaseous 2 L/min via Nasal Cannula Continuous For 99 months Lantus Inj (Insulin Glargine) 1,000 Unit/10 Ml Vial 10 Units SQ BID 30 Days Proair Hfa 8.5 GM Inh (Albuterol Sulfate) 90 Mcg/Act Aer 2 Puff INH Q4-6H PRN 108 mcg/actuation Reported Oscimin (Hyoscyamine Sulfate) 0.125 Mg Tab Vitamin D3 (Cholecalciferol) 1,000 Unit Tab 1,000 Units PO DAILY Preservision Areds (Multiple Vitamins W/ Minerals) 1 Tab 1 Tab PO DAILY Dulcolax DR (Bisacodyl) 5 Mg Tabdr 5 Mg PO DAILY PRN Oscimin (Hyoscyamine Sulfate) 0.125 Mg Tab 1 Tab PO DAILY [Nebulizer] 1 INH TID Primidone 50 Mg Tab 250 Mg PO TID Nitrostat SL (Nitroglycerin) 0.4 Mg Subl 0.4 Mg SL DIRECTED PRN 1 tablet under the tongue as needed for chest pain. Repeat every 5 minutes for a total of 3 DOSES or call 911 if NO relief. Finasteride 5 Mg Tab 5 Mg PO HS Do not crush. Atorvastatin (Atorvastatin Calcium) 40 Mg Tab 40 Mg PO HS Omeprazole 20 Mg Tab 20 Mg PO HS Lasix (Furosemide) 40 Mg Tab 40 Mg PO DAILY Plavix (Clopidogrel Bisulfate) 75 Mg Tab 75 Mg PO DAILY Review of Systems General / Constitutional: No: Fever Eyes: No: Visual changes HENT: No: Headaches Cardiovascular: No: Chest Pain or Discomfort Respiratory: Positive: Cough, Shortness of Breath Gastrointestinal: No: Abdominal Pain Genitourinary: No: Dysuria Musculoskeletal: No: Pain Skin: No Rash Neurologic: No: Weakness Psychiatric: No: Depression Endocrine: No: Polydipsia Hematologic/Lymphatic: No: Easy Bruising Physical Exam Narrative GENERAL: A thin male, under mild respiratory distress. SKIN: Focused skin assessment warm/dry. HEAD: Normocephalic. EYES: No scleral icterus. No injection or drainage. NECK: Supple, trachea midline. No JVD or lymphadenopathy. CARDIOVASCULAR: Regular rate and rhythm without murmurs, gallops, or rubs. RESPIRATORY: Patient has moderate expiratory wheezes bilaterally. Few rhonchi at the bases. GASTROINTESTINAL: Abdomen soft, non-tender, nondistended. MUSCULOSKELETAL: No cyanosis, or edema. BACK: Nontender without obvious deformity. No CVA tenderness. Neurologic exam normal. Data Data Last Documented VS Vital Signs Date Time Temp Pulse Resp B/P (MAP) Pulse Ox O2 Delivery O2 Flow Rate FiO2 07/13/17 21:47 94 07/13/17 21:47 Room Air 07/13/17 21:47 93 20 07/13/17 21:44 97.7 136/79 (98) Orders Orders Complete Blood Count With Diff (07/13/17 21:37) Basic Metabolic Panel (Bmp) (07/13/17 21:37) B-Type Natriuretic Peptide (07/13/17 21:37) Act Partial Throm Time (Ptt) (07/13/17 21:37) Prothrombin Time / Inr (Pt) (07/13/17 21:37) Influenzae A/B Antigen (07/13/17 21:37) Iv Access Insert/Monitor (07/13/17 21:37) Ecg Monitoring (07/13/17 21:37) Oximetry (07/13/17 21:37) Oxygen Administration (07/13/17 21:37) Chest, Single Ap (07/13/17 21:37) Sodium Chloride 0.9% Flush (Ns Flush) (07/13/17 21:45) Methylprednisolone So Succ Inj (Solumedr (07/13/17 21:45) Albuterol-Ipratropium Neb (Duoneb Neb) (07/13/17 21:45) Ceftriaxone Inj (Rocephin Inj) (07/13/17 22:45) Azithromycin (Zithromax) (07/13/17 22:45) Labs Laboratory Tests Test 07/13/17 22:00 White Blood Count 5.5 TH/MM3 Red Blood Count 4.21 MIL/MM3 Hemoglobin 13.0 GM/DL Hematocrit 40.7 % Mean Corpuscular Volume 96.7 FL Mean Corpuscular Hemoglobin 30.9 PG Mean Corpuscular Hemoglobin Concent 32.0 % Red Cell Distribution Width 14.5 % Platelet Count 186 TH/MM3 Mean Platelet Volume 8.4 FL Neutrophils (%) (Auto) 45.5 % Lymphocytes (%) (Auto) 17.7 % Monocytes (%) (Auto) 10.2 % Eosinophils (%) (Auto) 25.9 % Basophils (%) (Auto) 0.7 % Neutrophils # (Auto) 2.5 TH/MM3 Lymphocytes # (Auto) 1.0 TH/MM3 Monocytes # (Auto) 0.6 TH/MM3 Eosinophils # (Auto) 1.4 TH/MM3 Basophils # (Auto) 0.0 TH/MM3 CBC Comment DIFF FINAL Differential Comment Prothrombin Time 11.4 SEC Prothromb Time International Ratio 1.0 RATIO Activated Partial Thromboplast Time 28.5 SEC Blood Urea Nitrogen 17 MG/DL Creatinine 1.80 MG/DL Random Glucose 237 MG/DL Calcium Level 8.7 MG/DL Sodium Level 138 MEQ/L Potassium Level 3.5 MEQ/L Chloride Level 99 MEQ/L Carbon Dioxide Level 32.0 MEQ/L Anion Gap 7 MEQ/L Estimat Glomerular Filtration Rate 36 ML/MIN B-Type Natriuretic Peptide 518 PG/ML MDM Medical Decision Making Medical Screen Exam Complete: Yes Emergency Medical Condition: Yes Interpretation(s) 23:33 PM. Chest x-ray shows no acute consolidation. CBC within normal limit. Creatinine 1.8. Glucose 237. BNP 518. Differential Diagnosis Differential diagnosis including acute exacerbation COPD, bronchitis, pneumonia , PE, pneumothorax. Narrative Course 81-year-old male with shortness of breath. History of COPD. Albuterol with Atrovent unit dose treatment 3. Solu-Medrol 125 mg IV. Rocephin 1 g IV. Zithromax 500 mg by mouth. Diagnosis Primary Impression: COPD with acute exacerbation Falco Yo MD Jul 13, 2017 21:48
[2017-07-13 22:12] LABS: AUTOMATED NEUTROPHIL # 2.5 TH/MM3 (1.8-7.7); BASOPHIL % 0.7 % (0.0-2.0); EOSINOPHIL # 1.4 TH/MM3 (0-0.4); EOSINOPHIL % 25.9 % (0.0-4.0); HEMATOCRIT 40.7 % (39.0-51.0); HEMO FLAGS DIFF FINAL; LYMPH % 17.7 % (9.0-44.0); MEAN CELL VOLUME 96.7 FL (80.0-100.0); MEAN CORPUSCULAR HEMOGLOBIN 30.9 PG (27.0-34.0); MONO % 10.2 % (0.0-8.0); NEUT % 45.5 % (16.0-70.0); PLATELET COUNT 186 TH/MM3 (150-450); RED BLOOD COUNT 4.21 MIL/MM3 (4.50-5.90); RED CELL DISTRIBUTION WIDTH 14.5 % (11.6-17.2); WHITE BLOOD COUNT 5.5 TH/MM3 (4.0-11.0)
[2017-07-13] MEDS ORDERED: [UNRECOGNIZED DRUG - CODE] (22:17)
[2017-07-13 22:19] LABS: POTASSIUM 3.5 MEQ/L (3.5-5.1)
[2017-07-13 22:25] LABS: APTT (PATIENT) 28.5 SEC (24.3-30.1); PROTHROMBIN TIME - PATIENT 11.4 SEC (9.8-11.6)
--- NOTE | 2017-07-13 22:34 | RADRPT ---
EXAM DATE/TIME: 07/13/2017 22:24 [facility] COMPARISON: CHEST PA & LAT, March 19, 2017, 13:12. CT PULMONARY ANGIOGRAM, February 11, 2017, 13:16. INDICATIONS : Short of breath. MEDICAL HISTORY : Hypertension. Diabetes mellitus type 2. Cardiovascular disease SURGICAL HISTORY : None. ENCOUNTER: Initial ACUITY: 1 day PAIN SCORE: 0/10 LOCATION: Bilateral chest FINDINGS: A single view of the chest demonstrates the lungs to be symmetrically aerated without evidence of mas s, infiltrate or effusion. The cardiomediastinal contours are unremarkable. Osseous structures are intact. CONCLUSION: No evidence of acute cardiopulmonary disease. Brady Villagran MD on July 13, 2017 at 22:32 Board Certified Radiologist. This report was verified electronically.
[2017-07-13] MEDS ORDERED: cefTRIAXone INJ 1,000 MG in SODIUM CHLORIDE 0.9% INJ 100 ML IV ONE (22:45)
[2017-07-13] MEDS ORDERED: AZITHROMYCIN 250 MG TAB PO ONE (22:45)
[2017-07-13 22:53] VITALS: BP 114/60; PULSE 76; RESP 18; O2SAT 93
[2017-07-13] MEDS ORDERED: GLUCAGON 1 MG/ML VIAL OTHER PRN (23:30)
[2017-07-13] MEDS ORDERED: DEXTROSE 50% IN WATER 50 ML VIAL(D50) IV PUSH PRN (23:30)
[2017-07-13] MEDS ORDERED: NALOXONE HCL 0.4 MG/ML AMP IV PUSH PRN (23:30)
[2017-07-13] MEDS ORDERED: SODIUM CHLORIDE 0.9% FLUSH 10 ML FLUSH IV FLUSH PRN (23:30)
[2017-07-13] MEDS ORDERED: RESP: ALBUTEROL 2.5 MG/IPRATROPIUM 0.5 MG NEB (PRN) NEB (23:30)
[2017-07-14] VITALS (11 sets, daily range): BP systolic 107–137; BP diastolic 63–92; PULSE 80–96; RESP 16–21; TEMP 96–99.3; O2SAT 94–99
[2017-07-14] MEDS: methylPREDNISolone SOD SUCC 40 MG/1 ML VIAL IV PUSH SCH ×4 (00:52→17:37)
[2017-07-14] MEDS: RESP: ALBUTEROL 2.5 MG/IPRATROPIUM 0.5 MG NEB (SCH) NEB ×4 (03:13→22:38)
[2017-07-14 06:50] LABS: AUTOMATED NEUTROPHIL # 3.9 TH/MM3 (1.8-7.7); BASOPHIL % 0.3 % (0.0-2.0); EOSINOPHIL # 0.1 TH/MM3 (0-0.4); EOSINOPHIL % 1.3 % (0.0-4.0); HEMATOCRIT 37.9 % (39.0-51.0); HEMO FLAGS DIFF FINAL; LYMPH % 7.4 % (9.0-44.0); LYMPHOCYTE # 0.3 TH/MM3 (1.0-4.8); MEAN CELL VOLUME 96.3 FL (80.0-100.0); MEAN CORPUSCULAR HEMOGLOBIN 31.8 PG (27.0-34.0); MONO % 1.5 % (0.0-8.0); NEUT % 89.5 % (16.0-70.0); PLATELET COUNT 170 TH/MM3 (150-450); RED BLOOD COUNT 3.93 MIL/MM3 (4.50-5.90); RED CELL DISTRIBUTION WIDTH 14.4 % (11.6-17.2); WHITE BLOOD COUNT 4.4 TH/MM3 (4.0-11.0)
[2017-07-14 06:55] LABS: POTASSIUM 3.9 MEQ/L (3.5-5.1)
[2017-07-14 06:58] LABS: BICARBONATE 30.5 MEQ/L (21.0-32.0)
[2017-07-14] MEDS ORDERED: PANTOPRAZOLE SOD 40 MG DELAYED RELEASE TAB PO SCH (09:00)
[2017-07-14] MEDS ORDERED: INFLUENZA VIRUS VACCINE (QUADRIVALENT) 0.5 ML SYR IM ONE (09:00)
[2017-07-14] MEDS: SODIUM CHLORIDE 0.9% FLUSH 10 ML FLUSH IV FLUSH SCH ×2 (09:19→20:24)
[2017-07-14] MEDS ORDERED: GLUCAGON 1 MG/ML VIAL OTHER PRN (09:30)
[2017-07-14] MEDS ORDERED: DEXTROSE 50% IN WATER 50 ML VIAL(D50) IV PUSH PRN (09:30)
[2017-07-14] MEDS ORDERED: FUROSEMIDE 40 MG/4 ML VIAL IV PUSH ONE (09:30)
[2017-07-14] MEDS: INSULIN DETEMIR 100 UNITS/ML VIAL SQ SCH ×2 (11:00→20:23)
[2017-07-14] MEDS: INSULIN ASPART SUPPLEMENTAL SCALE SQ SCH ×3 (12:00→20:24)
[2017-07-14] MEDS: guaiFENesin E.R. 600 MG TAB PO SCH ×2 (12:11→20:23)
[2017-07-14] MEDS: FUROSEMIDE 40 MG TAB PO SCH (12:11)
[2017-07-14] MEDS: CLOPIDOGREL 75 MG TAB PO SCH (12:11)
[2017-07-14] MEDS: PRIMIDONE 250 MG TAB PO SCH ×2 (13:36→17:37)
--- NOTE | 2017-07-14 13:40 | HHI.HP ---
[facility] Service [facility] Primary Care Physician Jigna Espino MD Admission Diagnosis acute exacerbation COPD. Renal insufficiency. Hyperglycemia. Diagnoses: (1) SOB (shortness of breath) Diagnosis: Principal (2) COPD with acute exacerbation Diagnosis: Principal (3) Chronic respiratory failure with hypoxia Diagnosis: Secondary (4) Chronic systolic congestive heart failure Diagnosis: Secondary Chief Complaint: Shortness of breath Travel History International Travel<30 Days: No Contact w/Intl Traveler <30 Da: No Traveled to Known Affected Are: No History of Present Illness Written by Andrea Van, acting as scribe for Dr. Bañuelos on 07/14/17 at 13: 40. 82-year-old male with known history of chronic respiratory failure, oxygen dependency, chronic affective pulmonary disease, congestive heart failure , diabetes, hypertension, DVT, pulmonary emboli, hypothyroidism, coronary artery disease who presented to the hospital because of shortness of breath, dyspnea. Patient states that he does have chronic shortness of breath and dyspnea on exertion and which she uses a walker at home and walks very little. He does have rather significant history with pulmonary abnormality, cardiac issues with a severe cardiomyopathy with ejection fraction 15%. He states that he was doing well and has had intermittent cough with frothy sputum production intermittently he does get some globs of yellow/guerrero sputum. Patient states that is doing well until after dinner last night when he had an episode where he could get air out but could not get it back again so he came to the hospital for evaluation. He does have a thermometer production worker Dr. Carrillo and produce specialist Dr. Jo. Patient had workup done in emergency department and because of his expiratory wheeze and respiratory status is recommended that he should be observed in the hospital for further evaluation management. At the present time patient states that his respiratory status is much better and he does want to go home. He still has a cough with some frothy sputum. He has always dyspneic. Denies any chest pain, lightheadedness, dizziness, stomach pain, nausea, vomiting. Review of Systems Respiratory: COMPLAINS OF: Cough, Sputum production, Shortness of breath Cardiovascular: COMPLAINS OF: Dyspnea on Exertion Except as stated in HPI: all other systems reviewed are Neg Past Family Social History Past Medical History Hypertension Coronary artery disease Chronic systolic congestive heart failure Hyperlipidemia History myocardial infarction Cardiomyopathy with ejection fraction 15% Chronic respiratory failure oxygen dependent Chronic obstructive pulmonary disease Diabetes Gastroesophageal reflux History of bilateral PE History DVT Enlarge prostate History of shingles Hypothyroidism, untreated Past Surgical History Cardiac catheterization with stent placement Bilateral inguinal hernia. Right lung biopsy Reported Medications Reported Meds & Active Scripts Active Oxygen tank (Oxygen) 1 Ea Tank 2 Liter SUZANNE.CANULA CONTINUOUS Oxygen Concentrator Portable Gaseous 2 L/min via Nasal Cannula Continuous For 99 months Lantus Inj (Insulin Glargine) 1,000 Unit/10 Ml Vial 10 Units SQ BID 30 Days Proair Hfa 8.5 GM Inh (Albuterol Sulfate) 90 Mcg/Act Aer 2 Puff INH Q4-6H PRN 108 mcg/actuation Reported Oscimin (Hyoscyamine Sulfate) 0.125 Mg Tab Vitamin D3 (Cholecalciferol) 1,000 Unit Tab 1,000 Units PO DAILY Preservision Areds (Multiple Vitamins W/ Minerals) 1 Tab 1 Tab PO DAILY Dulcolax DR (Bisacodyl) 5 Mg Tabdr 5 Mg PO DAILY PRN Oscimin (Hyoscyamine Sulfate) 0.125 Mg Tab 1 Tab PO DAILY [Nebulizer] 1 INH TID Primidone 50 Mg Tab 250 Mg PO TID Nitrostat SL (Nitroglycerin) 0.4 Mg Subl 0.4 Mg SL DIRECTED PRN 1 tablet under the tongue as needed for chest pain. Repeat every 5 minutes for a total of 3 DOSES or call 911 if NO relief. Finasteride 5 Mg Tab 5 Mg PO HS Do not crush. Atorvastatin (Atorvastatin Calcium) 40 Mg Tab 40 Mg PO HS Omeprazole 20 Mg Tab 20 Mg PO HS Lasix (Furosemide) 40 Mg Tab 40 Mg PO DAILY Plavix (Clopidogrel Bisulfate) 75 Mg Tab 75 Mg PO DAILY Allergies: Coded Allergies: insulin isophane (NPH) (Unverified Allergy, Severe, NPH SPECIFIC RASH - ABLE TO TAKE HUMALOG, 06/01/17) latex (Unverified Allergy, Severe, Rash, 06/01/17) tiotropium (Unverified Allergy, Severe, DIFFICULTY URINATING, 06/01/17) ciprofloxacin (Verified Allergy, Intermediate, 07/13/17) sores in mouth prednisone (Verified Allergy, Intermediate, 07/13/17) heartburn/hiccups Uncoded Allergies: FLONASE (Allergy, Severe, 02/11/17) . Family History Reviewed is significant for mother with diabetes, father from cirrhosis Social History Patient denies any tobacco or illicit drug use. He states that he has not used alcohol since 1980. Physical Exam Vital Signs Vital Signs Date Time Temp Pulse Resp B/P (MAP) Pulse Ox O2 Delivery O2 Flow Rate FiO2 07/14/17 12:00 96.1 88 18 111/77 (88) 99 07/14/17 10:10 96 Nasal Cannula 2.00 07/14/17 08:00 96.0 91 16 124/63 (83) 97 07/14/17 03:57 96.8 83 21 107/63 (78) 95 07/14/17 03:10 96 Nasal Cannula 2.00 07/14/17 01:30 93 07/14/17 01:27 97.1 96 19 137/92 (107) 98 07/14/17 01:25 96 Nasal Cannula 2.00 07/14/17 00:52 80 18 121/71 (88) 94 Room Air 07/13/17 22:53 76 18 114/60 (78) 93 Room Air 07/13/17 21:47 94 07/13/17 21:47 94 Room Air 07/13/17 21:47 93 20 94 Room Air 07/13/17 21:44 94 21 07/13/17 21:44 97.7 93 20 136/79 (98) 94 Physical Exam GENERAL: Well-developed, well-nourished, in no acute distress. alert and orientated HEENT: Head is normocephalic without any lesions or masses noted. Facial features are symmetric. Eyes: Pupils equal round reactive to light. Extraocular muscles are intact. Conjunctivae were clear. Oropharyngeal: Pharynx without any erythema edema. Tongue is midline without deviation. Buccal mucosa is moist without any masses or lesions NECK: Supple without any masses. Trachea midline no deviation. No JVD, no bruits are appreciated CARDIAC: Regular rhythm, regular rate. S1/S2 are heard. No murmurs gallops or rubs. LUNGS: Clear to auscultation bilaterally. No wheeze, rhonchi or rales. No use of accessory muscles on inspiration or expiration. ABDOMEN: Soft, nontender. Nondistended. Bowel sounds heard in all 4 quadrants. No organomegaly or masses. Negative rebound, negative guarding EXTREMITIES: 1+ lower extremity edema, pulses are equal bilaterally. No cyanosis or clubbing NEUROLOGY: Mood and affect appear appropriate. Cranial nerves II through XII grossly intact. Muscle strength 5/5 in upper and lower extremities bilaterally. Deep tendon reflexes are 2+ in upper and lower extremities bilaterally. Laboratory Laboratory Tests Test 07/13/17 22:00 07/14/17 05:10 White Blood Count 5.5 4.4 Red Blood Count 4.21 3.93 Hemoglobin 13.0 12.5 Hematocrit 40.7 37.9 Mean Corpuscular Volume 96.7 96.3 Mean Corpuscular Hemoglobin 30.9 31.8 Mean Corpuscular Hemoglobin Concent 32.0 33.0 Red Cell Distribution Width 14.5 14.4 Platelet Count 186 170 Mean Platelet Volume 8.4 8.8 Neutrophils (%) (Auto) 45.5 89.5 Lymphocytes (%) (Auto) 17.7 7.4 Monocytes (%) (Auto) 10.2 1.5 Eosinophils (%) (Auto) 25.9 1.3 Basophils (%) (Auto) 0.7 0.3 Neutrophils # (Auto) 2.5 3.9 Lymphocytes # (Auto) 1.0 0.3 Monocytes # (Auto) 0.6 0.1 Eosinophils # (Auto) 1.4 0.1 Basophils # (Auto) 0.0 0.0 CBC Comment DIFF FINAL DIFF FINAL Differential Comment Prothrombin Time 11.4 Prothromb Time International Ratio 1.0 Activated Partial Thromboplast Time 28.5 Blood Urea Nitrogen 17 19 Creatinine 1.80 1.50 Random Glucose 237 227 Calcium Level 8.7 8.7 Sodium Level 138 141 Potassium Level 3.5 3.9 Chloride Level 99 102 Carbon Dioxide Level 32.0 30.5 Anion Gap 7 9 Estimat Glomerular Filtration Rate 36 45 B-Type Natriuretic Peptide 518 Date/Time Source Procedure Growth Status 07/13/17 22:00 Nasal Washing Influenza Types A,B Antigen (IVY) - Final NEGATIVE FOR FLU A AND B ANTIGEN.... Complete Result Diagram: 07/14/1710 07/14/17509 Imaging Last Impressions Chest X-Ray 07/13/172136 Signed Impressions: Service Date/Time: Thursday, July 13, 2017 22:24 - CONCLUSION: No evidence of acute cardiopulmonary disease. MD Zoya Ace VTE Risk Assessment Caprini VTE Risk Assessment: Mod/High Risk (score >= 2) Caprini Risk Assessment Model Point Value = 1 Point Value = 2 Point Value = 3 Point Value = 5 Age 41-60 Minor surgery BMI > 25 kg/m2 Swollen legs Varicose veins or History of unexplained or recurrent spontaneous Oral contraceptives or hormone replacement Sepsis (< 1 month) Serious lung disease, including pneumonia (< 1 month) Abnormal pulmonary function Acute myocardial infarction Congestive heart failure (< 1 month) History of inflammatory bowel disease Medical patient at bed rest Age 61-74 Arthroscopic surgery Major open surgery (> 45 min) Laparoscopic surgery (> 45 min) Malignancy Confined to bed (> 72 hours) Immobilizing plaster cast Central venous access Age >= 75 History of VTE Family history of VTE Factor V Leiden Prothrombin [id number] Lupus anticoagulant Anticardiolipin antibodies Elevated serum homocysteine Heparin-induced thrombocytopenia Other congenital or acquired thrombophilia Stroke (< 1 month) Elective arthroplasty Hip, pelvis, or leg fracture Acute spinal cord injury (< 1 month) Prophylaxis Regimen Total Risk Factor Score Risk Level Prophylaxis Regimen 0-1 Low Early ambulation 2 Moderate Order ONE of the following: *Sequential Compression Device (SCD) *Heparin 5000 units SQ BID 3-4 Higher Order ONE of the following medications: *Heparin 5000 units SQ TID *Enoxaparin/Lovenox 40 mg SQ daily (WT < 150 kg, CrCl > 30 mL/min) *Enoxaparin/Lovenox 30 mg SQ daily (WT < 150 kg, CrCl > 10-29 mL/min) *Enoxaparin/Lovenox 30 mg SQ BID (WT < 150 kg, CrCl > 30 mL/min) AND/OR *Sequential Compression Device (SCD) 5 or more Highest Order ONE of the following medications: *Heparin 5000 units SQ TID (Preferred with Epidurals) *Enoxaparin/Lovenox 40 mg SQ daily (WT < 150 kg, CrCl > 30 mL/min) *Enoxaparin/Lovenox 30 mg SQ daily (WT < 150 kg, CrCl > 10-29 mL/min) *Enoxaparin/Lovenox 30 mg SQ BID (WT < 150 kg, CrCl > 30 mL/min) AND *Sequential Compression Device (SCD) Assessment and Plan Assessment and Plan Shortness of breath, dyspnea, expiratory wheeze, improved This is multifactorial with patient having chronic respiratory failure oxygen dependent, chronic obstructive pulmonary disease, chronic systolic congestive heart failure, severe cardiomyopathy Patient respiratory status appears to be stable. No tachypnea, hypoxia. Patient does have elevated BNP, expiratory wheeze on exam, minimal edema and lower extremities, chest x-rays clear Continue oxygen to maintain O2 sats greater than 92% Continue nebulizer treatments Give Lasix 40 mg IV 1 Continue Solu-Medrol 40 mg every 6 hours Start guaifenesin 600 mg twice daily Hypertension, hyperlipidemia, coronary artery disease, cardiomyopathy Continue home medications Diabetes Accu-Cheks with sliding scale insulin DVT prevention Sequential compression devices Discharge disposition Discharge home in stable condition if patient continues to remain stable without any respiratory issues, patient very eager to go home. States he is back to his baseline respiratory status. Activity: Ad hamida. Diet: Diabetic diet Medications per medication reconciliation Follow-up with primary medical doctor in one week This note was transcribed by GUS Simon. I, Dr. Lindsey Bañuelos personally performed the history, physical exam, and medical decision making; and confirmed the accuracy of the information in the transcribed note. Authenticated by Dr. Lindsey Bañuelos on 07/14/17 at 13:40. Andrea Van Jul 14, 2017 13:40 Lindsey Bañuelos MD Jul 14, 2017 14:57
[2017-07-14] MEDS ORDERED: FINASTERIDE 5 MG TAB PO SCH (21:00)
[2017-07-14] MEDS ORDERED: ATORVASTATIN 40 MG TAB PO SCH (21:00)
[2017-07-15] VITALS: BP 98/60; PULSE 78; RESP 16; TEMP 98.5; O2SAT 96
[2017-07-15] MEDS: methylPREDNISolone SOD SUCC 40 MG/1 ML VIAL IV PUSH SCH ×2 (00:28→05:48)
[2017-07-15 04:00] VITALS: BP 106/67; PULSE 75; RESP 16; TEMP 98.1; O2SAT 75
[2017-07-15] MEDS: RESP: ALBUTEROL 2.5 MG/IPRATROPIUM 0.5 MG NEB (SCH) NEB (04:19)
[2017-07-15 08:00] VITALS: BP 113/82; PULSE 81; RESP 16; TEMP 96.4; O2SAT 94
[2017-07-15] MEDS: INSULIN ASPART SUPPLEMENTAL SCALE SQ SCH (08:02)
[2017-07-15] MEDS: INSULIN DETEMIR 100 UNITS/ML VIAL SQ SCH (08:02)
[2017-07-15] MEDS ORDERED: MEDR4PAK PO (08:04)
--- NOTE | 2017-07-15 08:04 | HHI.DCPOC ---
Discharge Care Plan Goals to Promote Your Health * To prevent worsening of your condition and complications * To maintain your health at the optimal level Directions to Meet Your Goals Take your medications as prescribed Follow your dietary instruction Follow activity as directed Keep your appointments as scheduled Take your immunizations and boosters as scheduled If your symptoms worsen call your PCP, if no PCP go to Urgent Care Center or Emergency Room Smoking is Dangerous to Your Health. Avoid second hand smoke Call the 24-hour hour crisis hotline for domestic abuse at Lindsey Bañuelos MD Jul 15, 2017 08:04
[2017-07-15] MEDS: PRIMIDONE 250 MG TAB PO SCH (08:05)
[2017-07-15] MEDS: SODIUM CHLORIDE 0.9% FLUSH 10 ML FLUSH IV FLUSH SCH (08:05)
[2017-07-15] MEDS: FUROSEMIDE 40 MG TAB PO SCH (08:05)
[2017-07-15] MEDS: guaiFENesin E.R. 600 MG TAB PO SCH (08:05)
[2017-07-15] MEDS: CLOPIDOGREL 75 MG TAB PO SCH (08:05)
--- NOTE | 2017-07-15 08:09 | HHI.PR ---
Subjective Remarks No events overnight. Back at baseline. Wants to go home. Objective Vitals Vital Signs Date Time Temp Pulse Resp B/P (MAP) Pulse Ox O2 Delivery O2 Flow Rate FiO2 07/15/17 04:00 98.1 75 16 106/67 (80) 75 07/15/17 00:00 98.5 78 16 98/60 (73) 96 07/14/17 22:38 96 Nasal Cannula 2.00 07/14/17 20:00 98.5 90 16 115/78 (90) 97 07/14/17 20:00 90 07/14/17 16:00 97.1 93 18 112/76 (88) 98 07/14/17 12:00 96.1 88 18 111/77 (88) 99 07/14/17 10:10 96 Nasal Cannula 2.00 I/O 07/14/17 07/14/17 07/14/17 07/15/17 07/15/17 07/15/17 06:59 14:59 22:59 06:59 14:59 22:59 Intake Total 100 ml 360 ml 480 ml Output Total 550 ml 900 ml Balance -450 ml 360 ml -420 ml Intake Oral 360 ml 480 ml IV Total 100 ml Output Urine Total 550 ml 900 ml # Voids 2 6 Result Diagram: 07/14/1710 07/14/17509 Imaging Last Impressions Chest X-Ray 07/13/172136 Signed Impressions: Service Date/Time: Thursday, July 13, 2017 22:24 - CONCLUSION: No evidence of acute cardiopulmonary disease. Brady Villagran MD Objective Remarks GENERAL: Well-developed, well-nourished, in no acute distress. alert and orientated HEENT: Head is normocephalic without any lesions or masses noted. Facial features are symmetric. Eyes: Pupils equal round reactive to light. Extraocular muscles are intact. Conjunctivae were clear. Oropharyngeal: Pharynx without any erythema edema. Tongue is midline without deviation. Buccal mucosa is moist without any masses or lesions NECK: Supple without any masses. Trachea midline no deviation. No JVD, no bruits are appreciated CARDIAC: Regular rhythm, regular rate. S1/S2 are heard. No murmurs gallops or rubs. LUNGS: Clear to auscultation bilaterally. No wheeze, rhonchi or rales. No use of accessory muscles on inspiration or expiration. ABDOMEN: Soft, nontender. Nondistended. Bowel sounds heard in all 4 quadrants. No organomegaly or masses. Negative rebound, negative guarding EXTREMITIES: 1+ lower extremity edema, pulses are equal bilaterally. No cyanosis or clubbing NEUROLOGY: Mood and affect appear appropriate. Cranial nerves II through XII grossly intact. Muscle strength 5/5 in upper and lower extremities bilaterally. Deep tendon reflexes are 2+ in upper and lower extremities bilaterally. A/P Problem List: (1) SOB (shortness of breath) ICD Code: R06.02 - Shortness of breath Status: Acute (2) COPD with acute exacerbation ICD Code: J44.1 - Chronic obstructive pulmonary disease with (acute) exacerbation Status: Acute (3) Chronic respiratory failure with hypoxia ICD Code: J96.11 - Chronic respiratory failure with hypoxia (4) Chronic systolic congestive heart failure ICD Code: I50.22 - Chronic systolic (congestive) heart failure Assessment and Plan Shortness of breath, dyspnea, expiratory wheeze, improved This is multifactorial with patient having chronic respiratory failure oxygen dependent, chronic obstructive pulmonary disease, chronic systolic congestive heart failure, severe cardiomyopathy Patient respiratory status appears to be stable. No tachypnea, hypoxia. Patient does have elevated BNP, expiratory wheeze on exam, minimal edema and lower extremities, chest x-rays clear Continue oxygen to maintain O2 sats greater than 92% Continue nebulizer treatments Give Lasix 40 mg IV 1 Continue Solu-Medrol 40 mg every 6 hours, tapered as tolerated Start guaifenesin 600 mg twice daily Hypertension, hyperlipidemia, coronary artery disease, cardiomyopathy Continue home medications Diabetes Accu-Cheks with sliding scale insulin DVT prevention Sequential compression devices Discharge disposition Discharge home in stable condition if patient continues to remain stable without any respiratory issues, patient very eager to go home. States he is back to his baseline respiratory status. Activity: Ad hamida. Diet: Diabetic diet Medications per medication reconciliation Follow-up with primary medical doctor in one week Lindsey Bañuelos MD Jul 15, 2017 08:09
[2017-07-15 08:20] VITALS: O2SAT 96
[2017-07-15] MEDS ORDERED: PANTOPRAZOLE SOD 20 MG DELAYED RELEASE TAB PO SCH (21:00)
== END 2017-07-15 09:06 | disposition home or self-care (01) ==
LOC: PHED 21:27 → INTOOBSV 23:29 → PHEDA 23:29 → UNDOADMIN 23:31 → PHEDA 23:31 → PH3B 07-14 01:18
PROVIDERS: ADMIT Hospitalist; ATTEND Hospitalist
DX: J44.1 Chronic obstructive pulmonary disease with (acute) exacerbation (principal); J96.11 Chronic respiratory failure with hypoxia; I50.22 Chronic systolic (congestive) heart failure; I11.0 Hypertensive heart disease with heart failure; E11.65 Type 2 diabetes mellitus with hyperglycemia; E03.9 Hypothyroidism, unspecified; I25.2 Old myocardial infarction; I26.99 Other pulmonary embolism without acute cor pulmonale; I42.9 Cardiomyopathy, unspecified; N40.0 Benign prostatic hyperplasia without lower urinary tract symptoms; E78.5 Hyperlipidemia, unspecified; Z99.81 Dependence on supplemental oxygen; Z79.4 Long term (current) use of insulin
CPT/HCPCS: 71010; 80048; 82948; 83880; 85025; 85610; 85730; 87804; 94640; 94664; 96365; 96372; 96375; 96376; 97162; 99285; G0378; G8987; G8988; J0696; J1815; J1940; J2920; J2930

== ENCOUNTER 2017-10-04 12:12 | Emergency (ER) | payer MEDICARE, OTHER ==
[~2017-10-04 12:12] MED LIST changes: +MEDR4PAK PO; -OMEP20TA PO; +OMEP20TA93 PO; -PRED5TAB PO; -ZITH250T PO; +[UNRECOGNIZED DRUG - CODE]; -[UNRECOGNIZED DRUG - CODE] PO
[2017-10-04 12:20] VITALS: BP 118/79; PULSE 83; RESP 24; TEMP 97.4; O2SAT 99
[2017-10-04] MEDS ORDERED: FUROSEMIDE 40 MG/4 ML VIAL IV PUSH ONE (13:00)
[2017-10-04] MEDS ORDERED: SODIUM CHLORIDE 0.9% FLUSH 10 ML FLUSH IVF PRN (13:00)
[2017-10-04 13:11] VITALS: O2SAT 96
[2017-10-04 13:15] LABS: AUTOMATED NEUTROPHIL # 4.7 TH/MM3 (1.8-7.7); BASOPHIL % 0.5 % (0.0-2.0); EOSINOPHIL # 0.4 TH/MM3 (0-0.4); EOSINOPHIL % 6.5 % (0.0-4.0); HEMATOCRIT 34.5 % (39.0-51.0); HEMOGLOBIN 11.4 GM/DL (13.0-17.0); LYMPH % 10.3 % (9.0-44.0); LYMPHOCYTE # 0.6 TH/MM3 (1.0-4.8); MEAN CELL VOLUME 92.8 FL (80.0-100.0); MEAN CORPUSCULAR HEMOGLOBIN 30.7 PG (27.0-34.0); MEAN CORPUSCULAR HGB CONC 33.1 % (32.0-36.0); MEAN PLATELET VOLUME 8.4 FL (7.0-11.0); MONO % 7.8 % (0.0-8.0); MONOCYTE # 0.5 TH/MM3 (0-0.9); NEUT % 74.9 % (16.0-70.0); PLATELET COUNT 197 TH/MM3 (150-450); RED BLOOD COUNT 3.72 MIL/MM3 (4.50-5.90); RED CELL DISTRIBUTION WIDTH 13.2 % (11.6-17.2); WHITE BLOOD COUNT 6.2 TH/MM3 (4.0-11.0)
[2017-10-04 13:20] LABS: CHLORIDE 95 MEQ/L (98-107); SODIUM (NA) 132 MEQ/L (136-145)
[2017-10-04 13:24] LABS: ALBUMIN 2.9 GM/DL (3.4-5.0); BICARBONATE 26.8 MEQ/L (21.0-32.0); BLOOD UREA NITROGEN 24 MG/DL (7-18); CALCIUM 8.4 MG/DL (8.5-10.1); GLUCOSE,RANDOM 211 MG/DL (74-106)
[2017-10-04 13:27] LABS: ALT (GPT) 28 U/L (12-78); AST (GOT) 32 U/L (15-37); GLOMERULAR FILTRATION RATE 42 ML/MIN (>89)
[2017-10-04 13:29] LABS: TOTAL BILIRUBIN ADULT 0.4 MG/DL (0.2-1.0); TOTAL PROTEIN 7.1 GM/DL (6.4-8.2)
[2017-10-04 13:30] LABS: ALKALINE PHOSPHATASE 129 U/L (45-117)
[2017-10-04 13:32] LABS: TROPONIN I LESS THAN 0.02 NG/ML (0.02-0.05)
[2017-10-04 13:33] VITALS: BP 106/76; PULSE 80; RESP 20; O2SAT 98
--- NOTE | 2017-10-04 13:42 | RADRPT ---
EXAM DATE/TIME: 10/04/2017 13:20 [facility] COMPARISON: CHEST SINGLE AP, July 13, 2017, 22:24. INDICATIONS : Short of Breath MEDICAL HISTORY : Hypertension. Diabetes mellitus type 2. Cardiovascular disease SURGICAL HISTORY : None. ENCOUNTER: Initial ACUITY: 1 day PAIN SCORE: 0/10 LOCATION: Bilateral chest FINDINGS: Moderate interstitial edema with cardiomegaly. Significant bibasilar peribronchial thickening. No s ignificant pleural effusion. No pneumothorax. CONCLUSION: Congestive failure with peribronchial thickening suggesting bronchitis superimposed on congestive arcadio lure. Aric Zaragoza MD FACR on October 04, 2017 at 13:40 Board Certified Radiologist. This report was verified electronically.
--- NOTE | 2017-10-04 13:47 | PD ---
HPI Chief Complaint: Respiratory Symptoms Time Seen by Provider: 12:34 Travel History International Travel<30 days: No Contact w/Intl Traveler<30days: No Traveled to known affect area: No History of Present Illness HPI This is a 71 who presents to the emergency department with increasing shortness of breath. The patient has a history congestive heart failure and over the past week has had increasing shortness of breath, constant, moderate severity, worse with exertion and worse with laying flat. He has a productive cough with clear sputum. He denies any fevers or chills. His noticed that his legs are increasingly swollen. He says that he cut back to taking his Lasix every other day because he was worried about his kidneys he's been doing this for about a week. He denies any chest pain. PFSH Past Medical History Hx Anticoagulant Therapy: Yes Arthritis: Yes Asthma: Yes Autoimmune Disease: No Anxiety: No Depression: No Cancer: No Cardiac Catheterization: Yes Cardiovascular Problems: Yes (htn on meds, MD x 1 with 3 stents. Hx of PE) High Cholesterol: Yes Chest Pain: No Congestive Heart Failure: Yes COPD: Yes Coronary Artery Disease: Yes Diabetes: Yes Patient Takes Glucophage: No Diminished Hearing: Yes Deep Vein Thrombosis: Yes (BILAT PE) Gastrointestinal Disorders: Yes GERD: Yes (HX OF BUT NOT RECENTLY) Genitourinary: Yes (ENLARGED PROSTATE) Hiatal Hernia: No Hypertension: Yes Immune Disorder: Yes (SHINGLES) Implanted Vascular Access Dvce: No Medical other: Yes (PER [facility] DECREASED RENAL FUNCTION) Musculoskeletal: Yes Neurologic: Yes Psychiatric: No Reproductive: No Respiratory: Yes Immunizations Current: Yes Sleep Apnea: No Thyroid Disease: Yes (HYPOTHYROID NOT CURRENTLY TAKING MEDS PER ) Ulcer: Yes (HX OF) Tetanus Vaccination: > 5 Years Influenza Vaccination: Yes Past Surgical History Abdominal Surgery: Yes (HUE INGUINAL HERNIA REPAIR) Coronary Stent: Yes (2006- X1 LAD, AND SEOT 2015/X3) Ear Surgery: No Endocrine Surgery: No Eye Surgery: No Genitourinary Surgery: No Gynecologic Surgery: No Oral Surgery: No Thoracic Surgery: Yes (RT LUNG BIOPSY ) Other Surgery: Yes (HUE HERNIA) Social History Alcohol Use: No Tobacco Use: No Substance Use: No Allergies-Medications (Allergen,Severity, Reaction): Coded Allergies: insulin isophane (NPH) (Verified Allergy, Severe, NPH SPECIFIC RASH - ABLE TO TAKE HUMALOG, 10/04/17) latex (Verified Allergy, Severe, Rash, 10/04/17) tiotropium (Verified Allergy, Severe, DIFFICULTY URINATING, 10/04/17) ciprofloxacin (Verified Allergy, Intermediate, 10/04/17) sores in mouth prednisone (Verified Allergy, Intermediate, 10/04/17) heartburn/hiccups Uncoded Allergies: FLONASE (Allergy, Severe, 02/11/17) . Reported Meds & Prescriptions Reported Meds & Active Scripts Active Oxygen tank (Oxygen) 1 Ea Tank 2 Liter SUZANNE.CANULA CONTINUOUS Oxygen Concentrator Portable Gaseous 2 L/min via Nasal Cannula Continuous For 99 months Lantus Inj (Insulin Glargine) 1,000 Unit/10 Ml Vial 10 Units SQ BID 30 Days Proair Hfa 8.5 GM Inh (Albuterol Sulfate) 90 Mcg/Act Aer 2 Puff INH Q4-6H PRN 108 mcg/actuation Reported Oscimin (Hyoscyamine Sulfate) 0.125 Mg Tab Vitamin D3 (Cholecalciferol) 1,000 Unit Tab 1,000 Units PO DAILY Preservision Areds (Multiple Vitamins W/ Minerals) 1 Tab 1 Tab PO DAILY Dulcolax DR (Bisacodyl) 5 Mg Tabdr 5 Mg PO DAILY PRN [Nebulizer] 1 INH TID Primidone 50 Mg Tab 250 Mg PO TID Nitrostat SL (Nitroglycerin) 0.4 Mg Subl 0.4 Mg SL DIRECTED PRN 1 tablet under the tongue as needed for chest pain. Repeat every 5 minutes for a total of 3 DOSES or call 911 if NO relief. Finasteride 5 Mg Tab 5 Mg PO HS Do not crush. Atorvastatin (Atorvastatin Calcium) 40 Mg Tab 40 Mg PO HS Omeprazole 20 Mg Tab 20 Mg PO HS Lasix (Furosemide) 40 Mg Tab 40 Mg PO DAILY Plavix (Clopidogrel Bisulfate) 75 Mg Tab 75 Mg PO DAILY Review of Systems Except as stated in HPI: all other systems reviewed are Neg Physical Exam Narrative GENERAL: Frail elderly male in no acute distress. SKIN: Focused skin assessment warm and dry. HEAD: Atraumatic. Normocephalic. EYES: Pupils equal and round. No injection or drainage. ENT: Moist mucous membranes NECK: Trachea midline. CARDIOVASCULAR: Regular rate and rhythm. No murmur appreciated. 2+ bilateral pitting edema of the lower extremities RESPIRATORY: Rales in the bilateral lung bases. No increased work of breathing. GASTROINTESTINAL: Abdomen soft, non-tender, nondistended. MUSCULOSKELETAL: No obvious deformities. NEUROLOGICAL: Awake and alert. No obvious cranial nerve deficits. Moving all extremities. PSYCHIATRIC: Appropriate mood and affect; insight and judgment normal. Data Data Last Documented VS Vital Signs Date Time Temp Pulse Resp B/P (MAP) Pulse Ox O2 Delivery O2 Flow Rate FiO2 10/04/17 13:33 80 20 106/76 (86) 98 Nasal Cannula 2.00 10/04/17 12:20 97.4 Orders Orders Complete Blood Count With Diff (10/04/17 12:49) Comprehensive Metabolic Panel (10/04/17 12:49) B-Type Natriuretic Peptide (10/04/17 12:49) Troponin I (10/04/17 12:49) Iv Access Insert/Monitor (10/04/17 12:49) Ecg Monitoring (10/04/17 12:49) Oximetry (10/04/17 12:49) Oxygen Administration (10/04/17 12:49) Chest, Single Ap (10/04/17 12:49) Sodium Chloride 0.9% Flush (Ns Flush) (10/04/17 13:00) Furosemide Inj (Lasix Inj) (10/04/17 13:00) Labs Laboratory Tests Test 10/04/17 13:05 White Blood Count 6.2 TH/MM3 Red Blood Count 3.72 MIL/MM3 Hemoglobin 11.4 GM/DL Hematocrit 34.5 % Mean Corpuscular Volume 92.8 FL Mean Corpuscular Hemoglobin 30.7 PG Mean Corpuscular Hemoglobin Concent 33.1 % Red Cell Distribution Width 13.2 % Platelet Count 197 TH/MM3 Mean Platelet Volume 8.4 FL Neutrophils (%) (Auto) 74.9 % Lymphocytes (%) (Auto) 10.3 % Monocytes (%) (Auto) 7.8 % Eosinophils (%) (Auto) 6.5 % Basophils (%) (Auto) 0.5 % Neutrophils # (Auto) 4.7 TH/MM3 Lymphocytes # (Auto) 0.6 TH/MM3 Monocytes # (Auto) 0.5 TH/MM3 Eosinophils # (Auto) 0.4 TH/MM3 Basophils # (Auto) 0.0 TH/MM3 CBC Comment DIFF FINAL Differential Comment Blood Urea Nitrogen 24 MG/DL Creatinine 1.60 MG/DL Random Glucose 211 MG/DL Total Protein 7.1 GM/DL Albumin 2.9 GM/DL Calcium Level 8.4 MG/DL Alkaline Phosphatase 129 U/L Aspartate Amino Transf (AST/SGOT) 32 U/L Alanine Aminotransferase (ALT/SGPT) 28 U/L Total Bilirubin 0.4 MG/DL Sodium Level 132 MEQ/L Potassium Level 4.6 MEQ/L Chloride Level 95 MEQ/L Carbon Dioxide Level 26.8 MEQ/L Anion Gap 10 MEQ/L Estimat Glomerular Filtration Rate 42 ML/MIN Troponin I LESS THAN 0.02 NG/ML B-Type Natriuretic Peptide 1637 PG/ML MDM Medical Decision Making Medical Screen Exam Complete: Yes Emergency Medical Condition: Yes Interpretation(s) No leukocytosis Mild hyponatremia Renal insufficiency slightly improved from prior BNP is 1637 Chest x-ray demonstrates congestive heart failure with peribronchial thickening Differential Diagnosis Congestive heart failure, myocardial infarction, pleural effusion, pulmonary embolism, COPD Narrative Course This is an 82-year-old male who presents to the emergency department with increasing shortness of breath, orthopnea and leg swelling in the setting of not taking his Lasix on a daily basis. His labs demonstrate an elevated BNP. Chest x-ray demonstrates pulmonary congestion. I suspect all of his symptoms are in the setting of congestive heart failure. He was given a dose of IV Lasix. He is not hypoxic. I think is appropriate for outpatient management. He was instructed to reinstitute his Lasix and to follow-up with his primary care physician. Diagnosis Primary Impression: Congestive heart failure (CHF) Qualified Codes: I50.9 - Heart failure, unspecified Patient Instructions: General Instructions Additional Instructions: If you develop severe chest pain, shortness of breath, sweating, lightheadedness , dizziness or difficulty breathing return to the emergency department immediately. Followup with your primary care physician in 2-3 days if your symptoms are not resolved. Med/Other Pt SpecificInfo: No Change to Meds Disposition: 01 DISCHARGE HOME Condition: Stable Jamilah Way MD Oct 04, 2017 13:47
[2017-10-04 13:54] VITALS: BP 100/66
== END 2017-10-04 14:19 | disposition home or self-care (01) ==
LOC: PHED 12:12
DX: I50.9 Heart failure, unspecified (principal); J44.9 Chronic obstructive pulmonary disease, unspecified; E11.9 Type 2 diabetes mellitus without complications; I11.0 Hypertensive heart disease with heart failure; Z79.01 Long term (current) use of anticoagulants
CPT/HCPCS: 71010; 80053; 83880; 84484; 85025; 96374; 99284; J1940

== ENCOUNTER 2017-10-23 17:08 | Inpatient (IN) | payer MEDICARE, OTHER ==
[~2017-10-23] VITALS: Ht 177.8 cm; Wt 71.5 kg
[~2017-10-23 17:08] MED LIST changes: -MEDR4PAK PO
[2017-10-23 17:13] VITALS: BP 126/81; PULSE 95; RESP 16; TEMP 97.4; O2SAT 100
[2017-10-23] MEDS ORDERED: FLUT1INH7 INH (17:31)
[2017-10-23] MEDS ORDERED: CETI10 PO (17:31)
[2017-10-23] MEDS ORDERED: OMEP20TA93 PO (17:31)
[2017-10-23] MEDS ORDERED: LANTUS2P SQ (17:31)
[2017-10-23] MEDS ORDERED: ACTO15TA22 PO (17:31)
[2017-10-23] MEDS ORDERED: methylPREDNISolone SOD SUCC 125 MG/2 ML VIAL IV PUSH ONE (17:45)
[2017-10-23] MEDS: RESP: ALBUTEROL 2.5 MG/IPRATROPIUM 0.5 MG NEB (SCH) INH (18:02)
[2017-10-23 18:06] LABS: AUTOMATED NEUTROPHIL # 3.7 TH/MM3 (1.8-7.7); BASOPHIL % 0.5 % (0.0-2.0); EOSINOPHIL # 0.3 TH/MM3 (0-0.4); HEMATOCRIT 36.2 % (39.0-51.0); HEMOGLOBIN 11.7 GM/DL (13.0-17.0); LYMPH % 13.1 % (9.0-44.0); LYMPHOCYTE # 0.7 TH/MM3 (1.0-4.8); MEAN CELL VOLUME 92.1 FL (80.0-100.0); MEAN CORPUSCULAR HEMOGLOBIN 29.8 PG (27.0-34.0); MEAN CORPUSCULAR HGB CONC 32.3 % (32.0-36.0); MEAN PLATELET VOLUME 8.8 FL (7.0-11.0); MONO % 10.5 % (0.0-8.0); MONOCYTE # 0.5 TH/MM3 (0-0.9); NEUT % 69.9 % (16.0-70.0); PLATELET COUNT 178 TH/MM3 (150-450); RED BLOOD COUNT 3.93 MIL/MM3 (4.50-5.90); WHITE BLOOD COUNT 5.2 TH/MM3 (4.0-11.0)
--- NOTE | 2017-10-23 18:08 | RADRPT ---
EXAM DATE/TIME: 10/23/2017 17:43 [facility] COMPARISON: CHEST PA & LAT, March 19, 2017, 13:12. CHEST SINGLE AP, July 13, 2017, 22:24. CHEST SINGLE AP, October 04, 2017, 13:20. INDICATIONS : Shortness of breath. MEDICAL HISTORY : Emphysema. Chronic obstructive pulmonary disease. Hypercholesterolemia. Hypertension, Asthma, Jhonatan cardial infarction, Coronary artery disease, CHF, Hypothyroid. SURGICAL HISTORY : Cardiac cath, Right lung biopsy, Coronary artery stent ENCOUNTER: Initial ACUITY: 2 days PAIN SCORE: 0/10 LOCATION: Bilateral chest FINDINGS: Diffuse interstitial prominence is evident throughout both lungs. There is no evidence of consolidati ng airspace disease. Heart and mediastinal surgery are stable. Osseous structures remain intact. CONCLUSION: Interstitial prominence above the patient's baseline appearance without clear evidence of airspace di sease. Mild pulmonary congestion is suspected. Edgar Faulkner MD on October 23, 2017 at 18:04 Board Certified Radiologist. This report was verified electronically.
[2017-10-23 18:13] LABS: CHLORIDE 100 MEQ/L (98-107); SODIUM (NA) 138 MEQ/L (136-145)
[2017-10-23 18:16] LABS: ALBUMIN 3.3 GM/DL (3.4-5.0); BICARBONATE 30.9 MEQ/L (21.0-32.0); CALCIUM 8.7 MG/DL (8.5-10.1); GLUCOSE,RANDOM 179 MG/DL (74-106)
[2017-10-23 18:17] LABS: BLOOD UREA NITROGEN 44 MG/DL (7-18)
[2017-10-23 18:20] LABS: ALT (GPT) 32 U/L (12-78); AST (GOT) 47 U/L (15-37); GLOMERULAR FILTRATION RATE 30 ML/MIN (>89)
[2017-10-23 18:21] LABS: TOTAL BILIRUBIN ADULT 0.4 MG/DL (0.2-1.0); TOTAL PROTEIN 7.6 GM/DL (6.4-8.2)
[2017-10-23 18:22] LABS: ALKALINE PHOSPHATASE 152 U/L (45-117)
[2017-10-23 18:24] LABS: TROPONIN I 0.02 NG/ML (0.02-0.05)
[2017-10-23 19:26] VITALS: BP 116/79; PULSE 93; RESP 18; O2SAT 96
[2017-10-23] MEDS ORDERED: GLUCAGON 1 MG/ML VIAL OTHER PRN (19:30)
[2017-10-23] MEDS ORDERED: ONDANSETRON HCL 4 MG/2 ML VIAL IVP PRN (19:30)
[2017-10-23] MEDS ORDERED: MAGNESIUM HYDROXIDE SUSP 30 ML CUP PO PRN (19:30)
[2017-10-23] MEDS ORDERED: BISACODYL 10 MG SUPP RECTAL PRN (19:30)
[2017-10-23] MEDS ORDERED: ACETAMINOPHEN/HYDROcodone 325 MG/10 MG TAB PO PRN (19:30)
[2017-10-23] MEDS ORDERED: ACETAMINOPHEN 325 MG TAB PO PRN (19:30)
[2017-10-23] MEDS ORDERED: LACTULOSE SYRUP 20 GM/30 ML CUP PO PRN (19:30)
[2017-10-23] MEDS ORDERED: SODIUM CHLORIDE 0.9% FLUSH 10 ML FLUSH IV FLUSH PRN (19:30)
[2017-10-23] MEDS ORDERED: ACETAMINOPHEN/HYDROcodone 325 MG/5 MG TAB PO PRN (19:30)
[2017-10-23] MEDS ORDERED: DEXTROSE 50% IN WATER 50 ML VIAL(D50) IV PUSH PRN (19:30)
[2017-10-23] MEDS ORDERED: SENNOSIDES 8.6 MG TAB PO PRN (19:30)
[2017-10-23] MEDS: RESP: ALBUTEROL 2.5 MG/IPRATROPIUM 0.5 MG NEB (SCH) NEB (19:47)
[2017-10-23] MEDS: BUDESONIDE-FORMOTEROL 160/4.5 MCG INHALER INH SCH (21:00)
[2017-10-23 21:19] VITALS: BP 113/71
[2017-10-23 21:30] VITALS: BP 120/78; PULSE 92; RESP 20; TEMP 96; O2SAT 94
--- NOTE | 2017-10-23 21:40 | PD ---
HPI Chief Complaint: Respiratory Symptoms Time Seen by Provider: 17:27 Travel History International Travel<30 days: No Contact w/Intl Traveler<30days: No Traveled to known affect area: No History of Present Illness HPI This is an 82-year-old male with a history of COPD and congestive heart failure on 2 L of oxygen at home as needed who presents to the emergency department with increasing shortness of breath. Over the past 3 days the patient has become increasingly short of breath, constant, severe, feeling like he can't catch his breath, unable to take a couple steps without getting very uncomfortable. He's had a productive cough with white sputum. He's been taking Lasix but inconsistently. I saw him 2 weeks ago and diagnosed him with worsening congestive heart failure and instructed him to reinstitute his Lasix. He says he is negative for a while but then ran out and then he started to take his family member's Lasix but she only takes 10 mg. Yesterday he was restarted on 40 mg twice a day by his primary care doctor. Despite this he's been increasingly short of breath. PFSH Past Medical History Hx Anticoagulant Therapy: Yes (plavix) Arthritis: Yes Asthma: Yes Autoimmune Disease: No Anxiety: No Depression: No Cancer: No Cardiac Catheterization: Yes Cardiovascular Problems: Yes (htn on meds, [place], 3 stents) High Cholesterol: Yes Chest Pain: No Congestive Heart Failure: Yes COPD: Yes Coronary Artery Disease: Yes Diabetes: Yes (type 2) Patient Takes Glucophage: No Diminished Hearing: Yes Deep Vein Thrombosis: Yes (BILAT PE) Gastrointestinal Disorders: Yes GERD: Yes (HX OF BUT NOT RECENTLY) Genitourinary: Yes (ENLARGED PROSTATE) Hiatal Hernia: No Hypertension: Yes Immune Disorder: Yes (SHINGLES) Implanted Vascular Access Dvce: No Musculoskeletal: Yes Neurologic: Yes Psychiatric: No Reproductive: No Respiratory: Yes (copd , chf) Immunizations Current: Yes Sleep Apnea: No Thyroid Disease: Yes (HYPOTHYROID NOT CURRENTLY TAKING MEDS PER ) Ulcer: Yes (HX OF) Tetanus Vaccination: Unknown ?: Not Past Surgical History Abdominal Surgery: Yes (HUE INGUINAL HERNIA REPAIR) Coronary Stent: Yes (2007- X1 LAD, AND SEOT 2015/X3) Ear Surgery: No Endocrine Surgery: No Eye Surgery: No Genitourinary Surgery: No Gynecologic Surgery: No Oral Surgery: No Thoracic Surgery: Yes (RT LUNG BIOPSY ) Other Surgery: Yes (HUE HERNIA) Social History Alcohol Use: No Tobacco Use: No Substance Use: No Allergies-Medications (Allergen,Severity, Reaction): Coded Allergies: insulin isophane (NPH) (Verified Allergy, Severe, NPH SPECIFIC RASH - ABLE TO TAKE HUMALOG, 10/23/17) latex (Verified Allergy, Severe, Rash, 10/23/17) tiotropium (Verified Allergy, Severe, DIFFICULTY URINATING, 10/23/17) ciprofloxacin (Verified Allergy, Intermediate, 10/23/17) sores in mouth prednisone (Verified Allergy, Intermediate, 10/23/17) heartburn/hiccups Uncoded Allergies: FLONASE (Allergy, Severe, 10/23/17) .. Reported Meds & Prescriptions Reported Meds & Active Scripts Active Oxygen tank (Oxygen) 1 Ea Tank 2 Liter SUZANNE.CANThirsty CONTINUOUS Oxygen Concentrator Portable Gaseous 2 L/min via Nasal Cannula Continuous For 99 months Proair Hfa 8.5 GM Inh (Albuterol Sulfate) 90 Mcg/Act Aer 2 Puff INH Q4-6H PRN 108 mcg/actuation Reported Actos (Pioglitazone HCl) 15 Mg Tab 15 Mg PO DAILY Cetirizine (Cetirizine HCl) 10 Mg Tab 10 Mg PO DAILY Lantus Inj (Insulin Glargine) 1,000 Unit/10 Ml Vial 12 Units SQ HS Breo Ellipta Inh (Fluticasone/Vilanterol) 200-25 Mcg/Act Inh 2 Puff INH DAILY Use daily at the same time. Omeprazole 20 Mg Tab 20 Mg PO BID Oscimin (Hyoscyamine Sulfate) 0.125 Mg Tab Vitamin D3 (Cholecalciferol) 1,000 Unit Tab 1,000 Units PO DAILY Preservision Areds (Multiple Vitamins W/ Minerals) 1 Tab 1 Tab PO DAILY Dulcolax DR (Bisacodyl) 5 Mg Tabdr 5 Mg PO DAILY PRN [Nebulizer] 1 INH TID Primidone 50 Mg Tab 250 Mg PO TID Nitrostat SL (Nitroglycerin) 0.4 Mg Subl 0.4 Mg SL DIRECTED PRN 1 tablet under the tongue as needed for chest pain. Repeat every 5 minutes for a total of 3 DOSES or call 911 if NO relief. Finasteride 5 Mg Tab 5 Mg PO HS Do not crush. Atorvastatin (Atorvastatin Calcium) 40 Mg Tab 40 Mg PO HS Lasix (Furosemide) 40 Mg Tab 40 Mg PO DAILY Plavix (Clopidogrel Bisulfate) 75 Mg Tab 75 Mg PO DAILY Review of Systems Except as stated in HPI: all other systems reviewed are Neg Physical Exam Narrative GENERAL: Frail elderly male SKIN: Focused skin assessment warm and dry. HEAD: Atraumatic. Normocephalic. EYES: Pupils equal and round. No injection or drainage. ENT: Moist mucous membranes NECK: Trachea midline. CARDIOVASCULAR: Regular rate and rhythm. No murmur appreciated. 2+ bilateral pitting edema in the lower extremities. RESPIRATORY: Tachypneic, diffuse wheezing with Rales in the left lower lung base GASTROINTESTINAL: Abdomen soft, non-tender, nondistended. MUSCULOSKELETAL: No obvious deformities. NEUROLOGICAL: Awake and alert. No obvious cranial nerve deficits. Moving all extremities. PSYCHIATRIC: Appropriate mood and affect; insight and judgment normal. Data Data Last Documented VS Vital Signs Date Time Temp Pulse Resp B/P (MAP) Pulse Ox O2 Delivery O2 Flow Rate FiO2 10/23/17 17:31 18 96 10/23/17 17:13 97.4 95 126/81 (96) Orders Orders Complete Blood Count With Diff (10/23/17 17:37) Comprehensive Metabolic Panel (10/23/17 17:37) ^ Insert Iv (10/23/17 17:37) Chest, Single Ap (10/23/17 ) Methylprednisolone So Succ Inj (Solumedr (10/23/17 17:45) Albuterol-Ipratropium Neb (Duoneb Neb) (10/23/17 17:45) B-Type Natriuretic Peptide (10/23/17 17:41) Electrocardiogram (10/23/17 ) Troponin I (10/23/17 17:37) Admit Order (Ed Use Only) (10/23/17 19:16) Labs Laboratory Tests Test 10/23/17 17:56 White Blood Count 5.2 TH/MM3 Red Blood Count 3.93 MIL/MM3 Hemoglobin 11.7 GM/DL Hematocrit 36.2 % Mean Corpuscular Volume 92.1 FL Mean Corpuscular Hemoglobin 29.8 PG Mean Corpuscular Hemoglobin Concent 32.3 % Red Cell Distribution Width 14.0 % Platelet Count 178 TH/MM3 Mean Platelet Volume 8.8 FL Neutrophils (%) (Auto) 69.9 % Lymphocytes (%) (Auto) 13.1 % Monocytes (%) (Auto) 10.5 % Eosinophils (%) (Auto) 6.0 % Basophils (%) (Auto) 0.5 % Neutrophils # (Auto) 3.7 TH/MM3 Lymphocytes # (Auto) 0.7 TH/MM3 Monocytes # (Auto) 0.5 TH/MM3 Eosinophils # (Auto) 0.3 TH/MM3 Basophils # (Auto) 0.0 TH/MM3 CBC Comment DIFF FINAL Differential Comment Blood Urea Nitrogen 44 MG/DL Creatinine 2.10 MG/DL Random Glucose 179 MG/DL Total Protein 7.6 GM/DL Albumin 3.3 GM/DL Calcium Level 8.7 MG/DL Alkaline Phosphatase 152 U/L Aspartate Amino Transf (AST/SGOT) 47 U/L Alanine Aminotransferase (ALT/SGPT) 32 U/L Total Bilirubin 0.4 MG/DL Sodium Level 138 MEQ/L Potassium Level 4.3 MEQ/L Chloride Level 100 MEQ/L Carbon Dioxide Level 30.9 MEQ/L Anion Gap 7 MEQ/L Estimat Glomerular Filtration Rate 30 ML/MIN Troponin I 0.02 NG/ML B-Type Natriuretic Peptide 2299 PG/ML MDM Medical Decision Making Medical Screen Exam Complete: Yes Emergency Medical Condition: Yes Interpretation(s) Afebrile, mild tachycardia, normotensive Anemia Renal insufficiency worse from 2 weeks ago BNP is 2299 increased from 2 weeks ago Last 24 hours Impressions Chest X-Ray 10/23/17 0000 Signed Impressions: Service Date/Time: Monday, October 23, 2017 17:43 - CONCLUSION: Interstitial prominence above the patient's baseline appearance without clear evidence of airspace disease. Mild pulmonary congestion is suspected. Edgar Faulkner MD Differential Diagnosis Congestive heart failure, COPD exacerbation, pneumonia, myocardial infarction, pulmonary embolism Narrative Course This is an 82-year-old male who presents to the emergency department with increasing shortness of breath. He has a history of CHF and COPD. He sounds wheezy on exam but also has Rales in the left lower lung base and significant edema. He was placed on a monitor and an IV was established. Labs demonstrate worsening renal insufficiency and an elevated BNP from his last visit. Patient was given steroids, serial bronchodilator treatments but still was very dyspneic with minimal exertion on exam. I think he requires observation for cardiology evaluation and continued pulmonary care. Diagnosis Primary Impression: Congestive heart failure (CHF) Qualified Codes: I50.9 - Heart failure, unspecified Additional Impression: COPD (chronic obstructive pulmonary disease) Qualified Codes: J44.1 - Chronic obstructive pulmonary disease with (acute) exacerbation Admitting Information Admitting Physician Requests: Jamilah Schuster MD Oct 23, 2017 21:40
[2017-10-23 22:01] VITALS: PULSE 91
[2017-10-23] MEDS: DOCUSATE SODIUM 50 MG/SENNA 8.6 MG TAB PO SCH (22:05)
[2017-10-23] MEDS: FINASTERIDE 5 MG TAB PO SCH (22:05)
[2017-10-23] MEDS: INSULIN DETEMIR 100 UNITS/ML VIAL SQ SCH (22:06)
[2017-10-23] MEDS: INSULIN ASPART SUPPLEMENTAL SCALE SQ SCH (22:06)
[2017-10-23] MEDS: SODIUM CHLORIDE 0.9% FLUSH 10 ML FLUSH IV FLUSH SCH (22:07)
[2017-10-23] MEDS: methylPREDNISolone SOD SUCC 40 MG/1 ML VIAL IV PUSH SCH (23:05)
[2017-10-24] VITALS (7 sets, daily range): BP systolic 97–108; BP diastolic 53–76; PULSE 83–94; RESP 16–20; TEMP 96–98.9; O2SAT 93–97
[2017-10-24] MEDS: methylPREDNISolone SOD SUCC 40 MG/1 ML VIAL IV PUSH SCH (05:33)
[2017-10-24 06:49] LABS: AUTOMATED NEUTROPHIL # 2.7 TH/MM3 (1.8-7.7); BASOPHIL % 0.4 % (0.0-2.0); EOSINOPHIL % 0.6 % (0.0-4.0); HEMATOCRIT 34.7 % (39.0-51.0); HEMOGLOBIN 11.1 GM/DL (13.0-17.0); LYMPH % 11.5 % (9.0-44.0); LYMPHOCYTE # 0.4 TH/MM3 (1.0-4.8); MEAN CELL VOLUME 93.6 FL (80.0-100.0); MEAN CORPUSCULAR HGB CONC 32.1 % (32.0-36.0); MEAN PLATELET VOLUME 9.2 FL (7.0-11.0); MONO % 6.1 % (0.0-8.0); MONOCYTE # 0.2 TH/MM3 (0-0.9); NEUT % 81.4 % (16.0-70.0); PLATELET COUNT 177 TH/MM3 (150-450); RED BLOOD COUNT 3.71 MIL/MM3 (4.50-5.90); RED CELL DISTRIBUTION WIDTH 13.8 % (11.6-17.2); WHITE BLOOD COUNT 3.3 TH/MM3 (4.0-11.0)
[2017-10-24 06:52] LABS: CHLORIDE 100 MEQ/L (98-107); SODIUM (NA) 138 MEQ/L (136-145)
[2017-10-24 06:55] LABS: CALCIUM 8.6 MG/DL (8.5-10.1)
[2017-10-24 06:56] LABS: ALBUMIN 2.8 GM/DL (3.4-5.0); BICARBONATE 30.1 MEQ/L (21.0-32.0); BLOOD UREA NITROGEN 46 MG/DL (7-18); GLUCOSE,RANDOM 240 MG/DL (74-106)
[2017-10-24 06:59] LABS: ALT (GPT) 27 U/L (12-78); AST (GOT) 33 U/L (15-37); GLOMERULAR FILTRATION RATE 34 ML/MIN (>89)
[2017-10-24 07:00] LABS: TOTAL BILIRUBIN ADULT 0.4 MG/DL (0.2-1.0); TOTAL PROTEIN 6.7 GM/DL (6.4-8.2)
[2017-10-24 07:02] LABS: ALKALINE PHOSPHATASE 128 U/L (45-117)
[2017-10-24] MEDS: RESP: ALBUTEROL 2.5 MG/IPRATROPIUM 0.5 MG NEB (SCH) NEB ×4 (07:06→19:12)
[2017-10-24] MEDS: DOCUSATE SODIUM 50 MG/SENNA 8.6 MG TAB PO SCH ×2 (08:24→20:52)
[2017-10-24] MEDS: PIOGLITAZONE HCL 15 MG TAB PO SCH (08:24)
[2017-10-24] MEDS: HEPARIN SODIUM - SQ 10,000 UNITS/ML VIAL SQ SCH ×2 (08:25→20:52)
[2017-10-24] MEDS: SODIUM CHLORIDE 0.9% FLUSH 10 ML FLUSH IV FLUSH SCH ×2 (08:25→20:51)
[2017-10-24] MEDS: FUROSEMIDE 40 MG/4 ML VIAL IV PUSH SCH ×2 (08:25→17:23)
[2017-10-24] MEDS: INSULIN ASPART SUPPLEMENTAL SCALE SQ SCH ×4 (08:26→20:53)
[2017-10-24] MEDS: MULTIVITAMIN-OPHTHALMIC 1 TAB PO SCH (08:47)
[2017-10-24] MEDS: BUDESONIDE-FORMOTEROL 160/4.5 MCG INHALER INH SCH (08:47)
--- NOTE | 2017-10-24 09:26 | HHI.HP ---
[facility] Service [facility] Primary Care Physician Jigna Espino MD Admission Diagnosis congestive heart failure Diagnoses: Chief Complaint: Shortness of breath Travel History International Travel<30 Days: No Contact w/Intl Traveler <30 Da: No Traveled to Known Affected Are: No History of Present Illness 82-year-old white male being admitted for acute systolic congestive heart failure. Patient was in his usual state of health until earlier this week when he began experiencing increased shortness of breath upon rest and upon exertion. He states that he had been compliant with his 40 mg of Lasix once a day but felt the need to take more and started taking anywhere from an additional 20-30 mg of his 's Lasix in the evening to help combat his increasing shortness of breath. He said that his noted that his feet were more swollen than usual as well. Patient denies any chest pain or nausea. Patient states that yesterday he was prescribed Lasix twice a day by his primary care doctor in response to his increasing shortness of breath but his symptoms were so due to progressive and he decided come to the emergency department. In the emergency department he was given Lasix along with Solu-Medrol and some breathing treatments. Patient states he was prescribed lisinopril sometime in the past but cannot recall being discontinued off of it for any particular specific reason (cough or angioedema). He states that he was diagnosed with asthma/COPD/acute bronchitis at some point in the past. He does have a nebulizer at home. Review of Systems Except as stated in HPI: all other systems reviewed are Neg Past Family Social History Past Medical History chf cad w/ stents Past Surgical History shoulder surgeries Allergies: Coded Allergies: insulin isophane (NPH) (Verified Allergy, Severe, NPH SPECIFIC RASH - ABLE TO TAKE HUMALOG, 10/23/17) latex (Verified Allergy, Severe, Rash, 10/23/17) tiotropium (Verified Allergy, Severe, DIFFICULTY URINATING, 10/23/17) ciprofloxacin (Verified Allergy, Intermediate, 10/23/17) sores in mouth prednisone (Verified Allergy, Intermediate, 10/23/17) heartburn/hiccups Uncoded Allergies: FLONASE (Allergy, Severe, 10/23/17) .. Family History DM Social History denies smoking but does have significant secondhand exposure when he lived with his first ; used to drink a beer daily up until the 1980s. Was in the armed forces. Physical Exam Vital Signs Vital Signs Date Time Temp Pulse Resp B/P (MAP) Pulse Ox O2 Delivery O2 Flow Rate FiO2 10/24/17 08:00 96.0 83 16 107/74 (85) 94 10/24/17 04:00 96.0 88 18 97/53 (68) 95 10/23/17 22:01 91 10/23/17 21:30 96.0 92 20 120/78 (92) 94 10/23/17 21:19 90 18 113/71 (85) 95 10/23/17 19:26 93 18 116/79 (91) 96 Room Air 10/23/17 17:31 18 96 10/23/17 17:13 97.4 95 16 126/81 (96) 100 Physical Exam VS: afebrile GENERAL: Elderly thin white male, well-nourished, no acute distress SKIN: Warm and dry. EYES: No scleral icterus. No injection or drainage. ENT: No nasal bleeding or discharge. Mucous membranes pink and moist. CARDIOVASCULAR: Regular rate and rhythm. no murmurs RESPIRATORY: No accessory muscle use. Good breath sounds bilaterally with very minimal Rales bibasilar early; no wheezing. GASTROINTESTINAL: Abdomen soft, non-tender, nondistended. Extremities: No clubbing, cyanosis. Has mild edema that's +2 in ankles. MUSCULOSKELETAL: adequate muscle bulk and tone for age and habitus NEUROLOGICAL: Awake and alert. No obvious cranial nerve deficits. No facial droop nor slurred speech noted. PSYCHIATRIC: Appropriate mood and affect; insight and judgment normal. Laboratory Laboratory Tests Test 10/23/17 17:56 10/24/17 05:43 White Blood Count 5.2 3.3 Red Blood Count 3.93 3.71 Hemoglobin 11.7 11.1 Hematocrit 36.2 34.7 Mean Corpuscular Volume 92.1 93.6 Mean Corpuscular Hemoglobin 29.8 30.0 Mean Corpuscular Hemoglobin Concent 32.3 32.1 Red Cell Distribution Width 14.0 13.8 Platelet Count 178 177 Mean Platelet Volume 8.8 9.2 Neutrophils (%) (Auto) 69.9 81.4 Lymphocytes (%) (Auto) 13.1 11.5 Monocytes (%) (Auto) 10.5 6.1 Eosinophils (%) (Auto) 6.0 0.6 Basophils (%) (Auto) 0.5 0.4 Neutrophils # (Auto) 3.7 2.7 Lymphocytes # (Auto) 0.7 0.4 Monocytes # (Auto) 0.5 0.2 Eosinophils # (Auto) 0.3 0.0 Basophils # (Auto) 0.0 0.0 CBC Comment DIFF FINAL DIFF FINAL Differential Comment Blood Urea Nitrogen 44 46 Creatinine 2.10 1.90 Random Glucose 179 240 Total Protein 7.6 6.7 Albumin 3.3 2.8 Calcium Level 8.7 8.6 Alkaline Phosphatase 152 128 Aspartate Amino Transf (AST/SGOT) 47 33 Alanine Aminotransferase (ALT/SGPT) 32 27 Total Bilirubin 0.4 0.4 Sodium Level 138 138 Potassium Level 4.3 4.2 Chloride Level 100 100 Carbon Dioxide Level 30.9 30.1 Anion Gap 7 8 Estimat Glomerular Filtration Rate 30 34 Troponin I 0.02 B-Type Natriuretic Peptide 2299 Result Diagram: 10/24/17 0543 10/24/17 0543 Imaging Last Impressions Chest X-Ray 10/23/17 0000 Signed Impressions: Service Date/Time: Monday, October 23, 2017 17:43 - CONCLUSION: Interstitial prominence above the patient's baseline appearance without clear evidence of airspace disease. Mild pulmonary congestion is suspected. Edgar Faulkner MD Caprini VTE Risk Assessment Caprini VTE Risk Assessment: Mod/High Risk (score >= 2) Caprini Risk Assessment Model Point Value = 1 Point Value = 2 Point Value = 3 Point Value = 5 Age 41-60 Minor surgery BMI > 25 kg/m2 Swollen legs Varicose veins or History of unexplained or recurrent spontaneous Oral contraceptives or hormone replacement Sepsis (< 1 month) Serious lung disease, including pneumonia (< 1 month) Abnormal pulmonary function Acute myocardial infarction Congestive heart failure (< 1 month) History of inflammatory bowel disease Medical patient at bed rest Age 61-74 Arthroscopic surgery Major open surgery (> 45 min) Laparoscopic surgery (> 45 min) Malignancy Confined to bed (> 72 hours) Immobilizing plaster cast Central venous access Age >= 75 History of VTE Family history of VTE Factor V Leiden Prothrombin [id number] Lupus anticoagulant Anticardiolipin antibodies Elevated serum homocysteine Heparin-induced thrombocytopenia Other congenital or acquired thrombophilia Stroke (< 1 month) Elective arthroplasty Hip, pelvis, or leg fracture Acute spinal cord injury (< 1 month) Prophylaxis Regimen Total Risk Factor Score Risk Level Prophylaxis Regimen 0-1 Low Early ambulation 2 Moderate Order ONE of the following: *Sequential Compression Device (SCD) *Heparin 5000 units SQ BID 3-4 Higher Order ONE of the following medications: *Heparin 5000 units SQ TID *Enoxaparin/Lovenox 40 mg SQ daily (WT < 150 kg, CrCl > 30 mL/min) *Enoxaparin/Lovenox 30 mg SQ daily (WT < 150 kg, CrCl > 10-29 mL/min) *Enoxaparin/Lovenox 30 mg SQ BID (WT < 150 kg, CrCl > 30 mL/min) AND/OR *Sequential Compression Device (SCD) 5 or more Highest Order ONE of the following medications: *Heparin 5000 units SQ TID (Preferred with Epidurals) *Enoxaparin/Lovenox 40 mg SQ daily (WT < 150 kg, CrCl > 30 mL/min) *Enoxaparin/Lovenox 30 mg SQ daily (WT < 150 kg, CrCl > 10-29 mL/min) *Enoxaparin/Lovenox 30 mg SQ BID (WT < 150 kg, CrCl > 30 mL/min) AND *Sequential Compression Device (SCD) Assessment and Plan Assessment and Plan 82-year-old white male being admitted for acute systolic heart failure Acute on chronic systolic heart failure - EF of 15% noted in 2014 - I independently reviewed the chest x-ray which shows mild diffuse pulmonary edema with no overt pleural effusions - continue with IV diuresis along with starting low dose lisinopril as well as spironolactone. - BNP elevated in the 1999 - intake and output - bmp today showing stable electrolytes Acute kidney injury - Likely from acute CHF - Improving since admission Wheezing - improved, continue home inhalers, albuterol, solumedrol DM, BPH, CAD, GERD - continue home meds of finasteride, insulin, pioglitazone, atorvastatin, Plavix , omeprazole, primidone for tremors lovenox Physician Certification 2 Midnight Certification Type: Admission for Inpatient Services Order for Inpatient Services The services are ordered in accordance with Medicare regulations or non- Medicare payer requirements, as applicable. In the case of services not specified as inpatient-only, they are appropriately provided as inpatient services in accordance with the 2-midnight benchmark. Estimated LOS (days): 2 2 days is the estimated time the patient will need to remain in the hospital, assuming treatment plan goals are met and no additional complications. Post-Hospital Plan: Home Jak Rojas MD Oct 24, 2017 09:26
[2017-10-24] MEDS ORDERED: ENOXAPARIN SODIUM 30 MG/0.3 ML SYRINGE SQ SCH (09:30)
[2017-10-24] MEDS ORDERED: FLUTICASONE 200 MCG/VILANTEROL 25 MCG INHALER INH SCH (09:30)
[2017-10-24] MEDS ORDERED: PILL SPLITTER OTHER PRN (09:45)
[2017-10-24] MEDS: CETIRIZINE HCL 10 MG TAB PO SCH (10:50)
[2017-10-24] MEDS: CLOPIDOGREL 75 MG TAB PO SCH (10:50)
[2017-10-24] MEDS: LISINOPRIL 5 MG TAB PO SCH (10:51)
[2017-10-24] MEDS: SPIRONOLACTONE 25 MG TAB PO SCH (10:53)
[2017-10-24] MEDS: PRIMIDONE 250 MG TAB PO SCH ×2 (11:54→17:23)
--- NOTE | 2017-10-24 13:57 | EKG ---
Date Performed: 10/23/2017 Time Performed: 18:02:11 PTAGE: 82 years EKG: Sinus rhythm POSSIBLE LEFT ATRIAL ENLARGEMENT MARKED LEFT AXIS DEVIATION MODERATE INTRAVENTRICULAR CONDUCTION DEL AY NONSPECIFIC ST & T-WAVE ABNORMALITY ABNORMAL ECG Since PREVIOUS TRACING , no significant change noted PREVIOUS TRACIN03/19/2017 12.22 DOCTOR: Burton Carpenter Interpretating Date/Time 10/24/2017 13:56:14
[2017-10-24] MEDS ORDERED: methylPREDNISolone SOD SUCC 125 MG/2 ML VIAL IV PUSH ONE (14:30)
[2017-10-24] MEDS: FINASTERIDE 5 MG TAB PO SCH (20:51)
[2017-10-24] MEDS: PANTOPRAZOLE SOD 20 MG DELAYED RELEASE TAB PO SCH (20:52)
[2017-10-24] MEDS: INSULIN DETEMIR 100 UNITS/ML VIAL SQ SCH (20:53)
[2017-10-24] MEDS ORDERED: ATORVASTATIN 40 MG TAB PO SCH (21:00)
[2017-10-25] VITALS: BP 92/67; PULSE 90; RESP 16; TEMP 98.8; O2SAT 94
[2017-10-25] MEDS: RESP: ALBUTEROL 2.5 MG/IPRATROPIUM 0.5 MG NEB (PRN) NEB ×2 (00:29→04:09)
[2017-10-25] MEDS ORDERED: methylPREDNISolone SOD SUCC 125 MG/2 ML VIAL IV PUSH SCH (02:00)
[2017-10-25 04:00] VITALS: BP 91/64; PULSE 82; RESP 16; TEMP 98; O2SAT 95
[2017-10-25] MEDS: RESP: ALBUTEROL 2.5 MG/IPRATROPIUM 0.5 MG NEB (SCH) NEB ×2 (07:15→11:16)
[2017-10-25 08:00] VITALS: BP 98/64; PULSE 87; RESP 16; TEMP 96; O2SAT 94
[2017-10-25] MEDS: INSULIN ASPART SUPPLEMENTAL SCALE SQ SCH (08:00)
[2017-10-25] MEDS ORDERED: FLUTICASONE 200 MCG/VILANTEROL 25 MCG INHALER INH SCH ×4 (09:00)
[2017-10-25] MEDS: CETIRIZINE HCL 10 MG TAB PO SCH (09:46)
[2017-10-25] MEDS: MULTIVITAMIN-OPHTHALMIC 1 TAB PO SCH (09:46)
[2017-10-25] MEDS: PIOGLITAZONE HCL 15 MG TAB PO SCH (09:46)
[2017-10-25] MEDS: PANTOPRAZOLE SOD 20 MG DELAYED RELEASE TAB PO SCH (09:47)
[2017-10-25] MEDS: PRIMIDONE 250 MG TAB PO SCH (09:47)
[2017-10-25] MEDS: CLOPIDOGREL 75 MG TAB PO SCH (09:47)
[2017-10-25] MEDS: DOCUSATE SODIUM 50 MG/SENNA 8.6 MG TAB PO SCH (09:47)
[2017-10-25] MEDS: SPIRONOLACTONE 25 MG TAB PO SCH (09:47)
[2017-10-25] MEDS: HEPARIN SODIUM - SQ 10,000 UNITS/ML VIAL SQ SCH (09:47)
[2017-10-25] MEDS: LISINOPRIL 5 MG TAB PO SCH (09:47)
[2017-10-25] MEDS: FUROSEMIDE 40 MG/4 ML VIAL IV PUSH SCH (09:48)
[2017-10-25] MEDS: SODIUM CHLORIDE 0.9% FLUSH 10 ML FLUSH IV FLUSH SCH (09:48)
[2017-10-25] MEDS ORDERED: LISI2.5T3 PO (10:15)
[2017-10-25] MEDS ORDERED: SPIR25TA PO (10:15)
[2017-10-25] MEDS ORDERED: PRED10PA PO (10:15)
[2017-10-25] MEDS ORDERED: FURO1TAB60 PO (10:17)
--- NOTE | 2017-10-25 10:22 | HHI.DCPOC ---
Discharge Care Plan Diagnosis: (1) Acute congestive heart failure Goals to Promote Your Health * To prevent worsening of your condition and complications * To maintain your health at the optimal level Directions to Meet Your Goals Take your medications as prescribed Follow your dietary instruction Follow activity as directed Keep your appointments as scheduled Take your immunizations and boosters as scheduled If your symptoms worsen call your PCP, if no PCP go to Urgent Care Center or Emergency Room Smoking is Dangerous to Your Health. Avoid second hand smoke Call the 24-hour hour crisis hotline for domestic abuse at Jak Rojas MD Oct 25, 2017 10:22
[2017-10-25] MEDS ORDERED: WALKER WHEELS/F1 MIS (10:27)
--- NOTE | 2017-10-25 10:27 | HHI.PR ---
Subjective Remarks Nursing denies any deterioration since last night. Patient himself says he feels much better. He thinks the steroids helped a lot. Objective Vital Signs Date Time Temp Pulse Resp B/P (MAP) Pulse Ox O2 Delivery O2 Flow Rate FiO2 10/25/17 08:00 96.0 87 16 98/64 (75) 94 10/25/17 04:00 98.0 82 16 91/64 (73) 95 10/25/17 00:00 98.8 90 16 92/67 (75) 94 10/24/17 20:00 98.9 94 16 97/68 (78) 95 10/24/17 20:00 93 10/24/17 16:00 96.8 93 20 108/76 (87) 93 10/24/17 12:00 96.0 91 18 101/70 (80) 97 10/24/17 10:33 104/69 (81) 94 I/O 10/24/17 10/24/17 10/24/17 10/25/17 10/25/17 10/25/17 07:00 15:00 23:00 07:00 15:00 23:00 Intake Total 240 ml 480 ml 480 ml Output Total 150 ml 300 ml 375 ml Balance 90 ml 480 ml 180 ml -375 ml Intake Oral 240 ml 480 ml 480 ml Output Urine Total 150 ml 300 ml 375 ml # Voids 1 # Bowel Movements 0 1 Result Diagram: 10/24/17 0543 10/24/17 0543 Objective Remarks Lung sounds are clear bilaterally, unlabored breathing. On room air No lower drug edema seen today A/P Assessment and Plan Acute on chronic congestive heart failure - Clinically resolved exacerbation. Shortness of breath - Resolved. Patient was counseled that we will discharge him on low dose lisinopril and spironolactone. He was also counseled to take his prescription of Lasix 40 mg twice a day and follow-up closely with his primary care provider to manage his fluid balance and electrolytes. He was also informed that we will also discharge him on a short prednisone taper. Patient has met maximal benefit from hospitalization and is clinically stable for discharge. Jak Rojas MD Oct 25, 2017 10:27
--- NOTE | 2017-10-25 10:36 | HHI.FF ---
Face to Face Verification Diagnosis: (1) Acute congestive heart failure (2) Unsteady gait Physical Therapy Order: Evaluate and Treat Home Health Nursing Order: Medical education Signs/symptoms of disease process CHF education I have seen patient Eduar Prince Upfold on 10/25/17. My clinical findings support the need for the requested home health care services because: Ltd mobility - disease progression Limited ability to care for self I certify that my clinical findings support that this patient is homebound because: Unsteady gait/balance Poor cardiac reserve Jak Rojas MD Oct 25, 2017 10:36
== END 2017-10-25 12:23 | disposition home health service (06) | DRG 292 ==
LOC: PHED 17:08 → PHEDA 19:17 → PH3A 21:29 → OBSVTOIN 10-25 11:26
PROVIDERS: ADMIT Hospitalist; ATTEND Hospitalist
DX: I11.0 Hypertensive heart disease with heart failure (principal); N17.9 Acute kidney failure, unspecified; J44.9 Chronic obstructive pulmonary disease, unspecified; E11.9 Type 2 diabetes mellitus without complications; I50.23 Acute on chronic systolic (congestive) heart failure; I25.10 Atherosclerotic heart disease of native coronary artery without angina pectoris; Z95.5 Presence of coronary angioplasty implant and graft; N40.0 Benign prostatic hyperplasia without lower urinary tract symptoms; K21.9 Gastro-esophageal reflux disease without esophagitis; E03.9 Hypothyroidism, unspecified; Z86.711 Personal history of pulmonary embolism; Z79.02 Long term (current) use of antithrombotics/antiplatelets
CPT/HCPCS: 71045; 80053; 82948; 83880; 84484; 85025; 93005; 94640; 94664; 96372; 96374; 96375; 96376; G0378; J1644; J1815; J1940; J2920; J2930

== ENCOUNTER 2017-10-27 10:40 | Emergency (ER) | payer MEDICARE, OTHER ==
[~2017-10-27] VITALS: Ht 177.8 cm; Wt 68.0 kg
[~2017-10-27 10:40] MED LIST changes: +ACTO15TA22 PO; +CETI10 PO; +FLUT1INH7 INH; +LISI2.5T3 PO; +PRED10PA PO; +SPIR25TA PO; +WALKER WHEELS/F1 MIS
[2017-10-27 10:52] VITALS: BP 104/60; PULSE 77; RESP 18; TEMP 97.2; O2SAT 97
[2017-10-27] MEDS ORDERED: ALBU0.63 NEB (11:42)
--- NOTE | 2017-10-27 11:59 | PD ---
HPI Chief Complaint: Fall Time Seen by Provider: 11:49 Travel History International Travel<30 days: No Contact w/Intl Traveler<30days: No Traveled to known affect area: No History of Present Illness HPI This 82-year-old male had a fall this morning. He is unsteady on his feet and walks with a walker. He said he lost his balance and fell and hit the right side of his chest and his back on his walker. He has a history of COPD and congestive heart failure. He was discharged from the hospital Wednesday of this week. He says his breathing has been good at home. He does have home oxygen aND home health care PFS Past Medical History Hx Anticoagulant Therapy: Yes (PLAVIX) Arthritis: Yes Asthma: Yes Autoimmune Disease: No Anxiety: No Depression: No Cancer: No Cardiac Catheterization: Yes Cardiovascular Problems: Yes (TN, HTN, CHOL, CHF) High Cholesterol: Yes Chest Pain: No Congestive Heart Failure: Yes (PT SAYS 35% FUNCTION) COPD: Yes Coronary Artery Disease: Yes Diabetes: Yes Patient Takes Glucophage: Yes Diminished Hearing: Yes Deep Vein Thrombosis: Yes (BILAT PE) Endocrine: Yes Gastrointestinal Disorders: Yes GERD: Yes Genitourinary: Yes (ENLARGED PROSTATE) Hiatal Hernia: No Hypertension: Yes Immune Disorder: Yes (SHINGLES) Implanted Vascular Access Dvce: No Musculoskeletal: Yes Neurologic: Yes Psychiatric: No Reproductive: No Respiratory: Yes (COPD with oxgen at home for night or as needed) Immunizations Current: Yes Sleep Apnea: No Thyroid Disease: Yes (HYPOTHYROID NOT CURRENTLY TAKING MEDS PER DR. ) Ulcer: Yes (HX OF) Tetanus Vaccination: < 5 Years Influenza Vaccination: Yes Past Surgical History Abdominal Surgery: Yes (HUE INGUINAL HERNIA REPAIR) Coronary Stent: Yes (2006- X1 LAD, AND SEOT 2015/X3) Ear Surgery: No Endocrine Surgery: No Eye Surgery: No Genitourinary Surgery: No Gynecologic Surgery: No Oral Surgery: No Thoracic Surgery: Yes (RT LUNG BIOPSY ) Other Surgery: Yes (HUE HERNIA-groin, right foot) Social History Alcohol Use: No Tobacco Use: No Substance Use: No Allergies-Medications (Allergen,Severity, Reaction): Coded Allergies: insulin isophane (NPH) (Verified Allergy, Severe, NPH SPECIFIC RASH - ABLE TO TAKE HUMALOG, 10/27/17) latex (Verified Allergy, Severe, Rash, 10/27/17) tiotropium (Verified Allergy, Severe, DIFFICULTY URINATING, 10/27/17) ciprofloxacin (Verified Allergy, Intermediate, 10/27/17) sores in mouth prednisone (Verified Allergy, Intermediate, 10/27/17) heartburn/hiccups Uncoded Allergies: FLONASE (Allergy, Severe, 10/27/17) ... Reported Meds & Prescriptions Reported Meds & Active Scripts Active Lasix (Furosemide) 40 Mg Tab 40 Mg PO BID Prednisone (21) 10 mg tab Dose Pack (Prednisone) 10 Mg Pack 10 Mg PO DIRECTED Spironolactone 25 Mg Tab 12.5 Mg PO DAILY Lisinopril 2.5 Mg Tab 2.5 Mg PO DAILY Oxygen tank (Oxygen) 1 Ea Tank 2 Liter SUZANNE.CANZeePearl CONTINUOUS Oxygen Concentrator Portable Gaseous 2 L/min via Nasal Cannula Continuous For 99 months Proair Hfa 8.5 GM Inh (Albuterol Sulfate) 90 Mcg/Act Aer 2 Puff INH Q4-6H PRN 108 mcg/actuation Reported Albuterol Neb (Albuterol Sulfate) Unknown Strength Neb Unknown Dose NEB QID NEB PRN Cetirizine (Cetirizine HCl) 10 Mg Tab 10 Mg PO DAILY Lantus Inj (Insulin Glargine) 1,000 Unit/10 Ml Vial 14 Units SQ HS Breo Ellipta Inh (Fluticasone/Vilanterol) 200-25 Mcg/Act Inh 2 Puff INH DAILY Use daily at the same time. Omeprazole 20 Mg Tab 20 Mg PO BID Vitamin D3 (Cholecalciferol) 1,000 Unit Tab 1,000 Units PO DAILY Preservision Areds (Multiple Vitamins W/ Minerals) 1 Tab 1 Tab PO DAILY Dulcolax DR (Bisacodyl) 5 Mg Tabdr 5 Mg PO DAILY PRN [Nebulizer] 1 INH TID Primidone 50 Mg Tab 250 Mg PO TID Nitrostat SL (Nitroglycerin) 0.4 Mg Subl 0.4 Mg SL DIRECTED PRN 1 tablet under the tongue as needed for chest pain. Repeat every 5 minutes for a total of 3 DOSES or call 911 if NO relief. Finasteride 5 Mg Tab 5 Mg PO HS Do not crush. Atorvastatin (Atorvastatin Calcium) 40 Mg Tab 40 Mg PO HS Plavix (Clopidogrel Bisulfate) 75 Mg Tab 75 Mg PO DAILY Review of Systems General / Constitutional: No: Fever, Chills Eyes: No: Diploplia, Blurred Vision HENT: No: Headaches, Vertigo Cardiovascular: Positive: Chest Pain or Discomfort Respiratory: No: Cough, Shortness of Breath Gastrointestinal: No: Vomiting Physical Exam Narrative GENERAL: Elderly male appears fairly comfortable SKIN: Focused skin assessment warm/dry. HEAD: Atraumatic. Normocephalic. EYES: Pupils equal and round. No scleral icterus. No injection or drainage. ENT: No nasal bleeding or discharge. Mucous membranes pink and moist. NECK: Trachea midline. No JVD. CARDIOVASCULAR: Regular rate and rhythm. No murmur appreciated. RESPIRATORY: No accessory muscle use. Clear to auscultation. Breath sounds equal bilaterally. There is tenderness in the right lateral ribs GASTROINTESTINAL: Abdomen soft, non-tender, nondistended. Hepatic and splenic margins not palpable. MUSCULOSKELETAL: No obvious deformities. No clubbing. No cyanosis. No edema. He is an abrasion of the lower back and some tenderness of the lower back. Station of the legs and strength is intact NEUROLOGICAL: Awake and alert. No obvious cranial nerve deficits. Motor grossly within normal limits. Normal speech. PSYCHIATRIC: Appropriate mood and affect; insight and judgment normal. Data Data Last Documented VS Vital Signs Date Time Temp Pulse Resp B/P (MAP) Pulse Ox O2 Delivery O2 Flow Rate FiO2 10/27/17 13:26 16 10/27/17 11:31 95 Room Air 10/27/17 10:52 97.2 77 104/60 (75) Orders Orders Ribs, Uni (W/Exp Cxr-Min 3vw) (10/27/17 11:56) Spine, Lumbar - Ltd (Ap & Lat) (10/27/17 11:56) Acetaminophen (Tylenol) (10/27/17 12:00) MDM Medical Decision Making Medical Screen Exam Complete: Yes Emergency Medical Condition: Yes Medical Record Reviewed: Yes Differential Diagnosis Differential includes chest wall contusion, rib fracture, compression fracture Narrative Course X-ray does show at least 2 rib possibly 3 rib fractures. The lung solis are unchanged from previous exam. Patient was just released from the hospital. I have advised him that he is at high risk for problems and thought that admission may be advisable however the patient is quite insistent on going home. He does appear stable. I will prescribe some Ultram for pain. He does have oxygen at home. I have advised him and his to return if any problems. Diagnosis Primary Impression: Rib fractures Scripts Tramadol (Ultram) 50 Mg Tab 50 MG PO Q6H Y for PAIN, #20 TAB 0 Refills Prov: Agusto Jerome MD 10/27/17 Disposition: 01 DISCHARGE HOME Condition: Stable Agusto Jerome MD Oct 27, 2017 11:59
[2017-10-27] MEDS ORDERED: ACETAMINOPHEN 325 MG TAB PO ONE (12:00)
--- NOTE | 2017-10-27 13:16 | RADRPT ---
EXAM DATE/TIME: 10/27/2017 12:19 [facility] COMPARISON: No previous studies available for comparison. INDICATIONS : Fall, low back pain. MEDICAL HISTORY : None. SURGICAL HISTORY : None. ENCOUNTER: Initial ACUITY: 1 day PAIN SCORE: 8/10 LOCATION: Bilateral low back FINDINGS: Two view examination was performed. There are five non-rib bearing vertebral bodies. No compression fracture. Mild degenerative changes. Osteopenia. The pedicles are intact. No fracture is identified . CONCLUSION: Mild degenerative changes and osteopenia. Reilly Georges MD on October 27, 2017 at 13:09 Board Certified Radiologist. This report was verified electronically.
--- NOTE | 2017-10-27 13:19 | RADRPT ---
EXAM DATE/TIME: 10/27/2017 12:19 [facility] COMPARISON: No previous studies available for comparison. INDICATIONS : Fall, right side rib pain. MEDICAL HISTORY : Emphysema. Chronic obstructive pulmonary disease. Hypercholesterolemia.Hypertension, Asthma, Myocardi al infarction, Coronary artery disease, CHF.Hypothyroid SURGICAL HISTORY : Cardiac cath, Right lung biopsy, Coronary artery stent ENCOUNTER: Initial ACUITY: 1 day PAIN SCORE: 8/10 LOCATION: Right lateral ribs FINDINGS: There are minimally displaced fractures through the right eighth rib and sixth rib anterolaterally an d possibly also the right fifth rib. No pneumothorax or effusion. Subsegmental airspace disease in th e right lung. CONCLUSION: 1. Multiple mildly displaced rib fractures as above without pneumothorax. Danny Madden MD on October 27, 2017 at 13:15 Board Certified Radiologist. This report was verified electronically.
[2017-10-27 13:26] VITALS: RESP 16
[2017-10-27] MEDS ORDERED: TRAM50 PO (13:50)
== END 2017-10-27 20:02 | disposition home or self-care (01) ==
LOC: PHED 10:40
DX: S22.41XA Multiple fractures of ribs, right side, initial encounter for closed fracture (principal); E11.9 Type 2 diabetes mellitus without complications; E78.00 Pure hypercholesterolemia, unspecified; I11.0 Hypertensive heart disease with heart failure; I50.9 Heart failure, unspecified; I25.10 Atherosclerotic heart disease of native coronary artery without angina pectoris; J44.9 Chronic obstructive pulmonary disease, unspecified; K21.9 Gastro-esophageal reflux disease without esophagitis; W01.0XXA Fall on same level from slipping, tripping and stumbling without subsequent striking against object, initial encounter; Y93.01 Activity, walking, marching and hiking; Z79.4 Long term (current) use of insulin
CPT/HCPCS: 71101; 72100; 99284

== ENCOUNTER 2017-12-13 09:14 | Inpatient (IN) | payer MEDICARE, OTHER ==
[~2017-12-13] VITALS: Ht 177.8 cm; Wt 70.2 kg
[2017-12-13] VITALS (9 sets, daily range): BP systolic 101–110; BP diastolic 68–78; PULSE 82–92; RESP 16–24; TEMP 96.4–97.6; O2SAT 95–99
[~2017-12-13 09:14] MED LIST changes: -ACTO15TA22 PO; +ALBU0.63 NEB; +TRAM50 PO; -WALKER WHEELS/F1 MIS; -[UNRECOGNIZED DRUG - CODE]
--- NOTE | 2017-12-13 09:43 | PD ---
HPI Chief Complaint: Respiratory Symptoms Time Seen by Provider: 09:31 Travel History International Travel<30 days: No Contact w/Intl Traveler<30days: No Traveled to known affect area: No History of Present Illness HPI This 82-year-old male is complaining of shortness of breath and swelling of his ankles. His symptoms have been progressive over the last few days. He does have a history of COPD and congestive heart failure. He has never smoked. He did see Dr. Hauser last week and was told that he had a leaky valve. He has a history of myocardial infarction and has 3 stents in his heart. He has not had recent chest pain. He says that his Lasix was recently cut back from 2 a day to one a day because she was told kidneys were weak. He had a fall on the and had several broken ribs. He was admitted to the hospital from the 59 because of shortness of breath. He is not aware of fever or chills. He has to sleep sitting upright and gets short of breath with minimal exertion PFSH Past Medical History Hx Anticoagulant Therapy: Yes (PLAVIX) Arthritis: Yes Asthma: Yes Autoimmune Disease: No Anxiety: No Depression: No Cancer: No Cardiac Catheterization: Yes Cardiovascular Problems: Yes (CHF, leaky valve doesn't know which one ) High Cholesterol: Yes Chest Pain: No Congestive Heart Failure: Yes (PT SAYS 35% FUNCTION) COPD: Yes Coronary Artery Disease: Yes Diabetes: Yes (Type 2 ) Patient Takes Glucophage: No Diminished Hearing: Yes Deep Vein Thrombosis: Yes (BILAT PE) Endocrine: Yes Gastrointestinal Disorders: Yes GERD: Yes Genitourinary: Yes (ENLARGED PROSTATE) Hiatal Hernia: No Hypertension: Yes Immune Disorder: Yes (SHINGLES) Implanted Vascular Access Dvce: No Musculoskeletal: Yes Neurologic: Yes Psychiatric: No Reproductive: No Respiratory: Yes (COPD) Immunizations Current: Yes Sleep Apnea: No Thyroid Disease: Yes (HYPOTHYROID NOT CURRENTLY TAKING MEDS PER ) Ulcer: Yes (HX OF) Past Surgical History Abdominal Surgery: Yes (HUE INGUINAL HERNIA REPAIR) Coronary Stent: Yes (2007- X1 LAD, AND SEOT 2015/X3) Ear Surgery: No Endocrine Surgery: No Eye Surgery: No Genitourinary Surgery: No Gynecologic Surgery: No Oral Surgery: No Thoracic Surgery: Yes (RT LUNG BIOPSY ) Other Surgery: Yes (HUE HERNIA-groin, right foot) Social History Alcohol Use: No Tobacco Use: No Substance Use: No Allergies-Medications (Allergen,Severity, Reaction): Coded Allergies: insulin isophane (NPH) (Verified Allergy, Severe, NPH SPECIFIC RASH - ABLE TO TAKE HUMALOG, 12/13/17) latex (Verified Allergy, Severe, Rash, 12/13/17) tiotropium (Verified Allergy, Severe, DIFFICULTY URINATING, 12/13/17) ciprofloxacin (Verified Allergy, Intermediate, 12/13/17) sores in mouth prednisone (Verified Allergy, Intermediate, 12/13/17) heartburn/hiccups Uncoded Allergies: FLONASE (Allergy, Severe, 10/27/17) ... Reported Meds & Prescriptions Reported Meds & Active Scripts Active Ultram (Tramadol HCl) 50 Mg Tab 50 Mg PO Q6H PRN Lasix (Furosemide) 40 Mg Tab 40 Mg PO BID Spironolactone 25 Mg Tab 12.5 Mg PO DAILY Lisinopril 2.5 Mg Tab 2.5 Mg PO DAILY Oxygen tank (Oxygen) 1 Ea Tank 2 Liter SUZANNE[employer] CONTINUOUS Oxygen Concentrator Portable Gaseous 2 L/min via Nasal Cannula Continuous For 99 months Proair Hfa 8.5 GM Inh (Albuterol Sulfate) 90 Mcg/Act Aer 2 Puff INH Q4-6H PRN 108 mcg/actuation Reported Albuterol Neb (Albuterol Sulfate) Unknown Strength Neb Unknown Dose NEB QID NEB PRN Cetirizine (Cetirizine HCl) 10 Mg Tab 10 Mg PO DAILY Lantus Inj (Insulin Glargine) 1,000 Unit/10 Ml Vial 14 Units SQ HS Breo Ellipta Inh (Fluticasone/Vilanterol) 200-25 Mcg/Act Inh 2 Puff INH DAILY Use daily at the same time. Omeprazole 20 Mg Tab 20 Mg PO BID Vitamin D3 (Cholecalciferol) 1,000 Unit Tab 1,000 Units PO DAILY Preservision Areds (Multiple Vitamins W/ Minerals) 1 Tab 1 Tab PO DAILY Dulcolax DR (Bisacodyl) 5 Mg Tabdr 5 Mg PO DAILY PRN Primidone 50 Mg Tab 250 Mg PO TID Nitrostat SL (Nitroglycerin) 0.4 Mg Subl 0.4 Mg SL DIRECTED PRN 1 tablet under the tongue as needed for chest pain. Repeat every 5 minutes for a total of 3 DOSES or call 911 if NO relief. Finasteride 5 Mg Tab 5 Mg PO HS Do not crush. Atorvastatin (Atorvastatin Calcium) 40 Mg Tab 40 Mg PO HS Plavix (Clopidogrel Bisulfate) 75 Mg Tab 75 Mg PO DAILY Review of Systems General / Constitutional: No: Fever, Chills Eyes: No: Diploplia, Blurred Vision HENT: No: Headaches, Vertigo Cardiovascular: Positive: Edema, No: Chest Pain or Discomfort Respiratory: Positive: Cough, Shortness of Breath Gastrointestinal: No: Vomiting, Diarrhea Genitourinary: No: Urgency Skin: No Rash, No Itching Neurologic: Positive: Weakness, No: Syncope, Focal Abnormalities Psychiatric: No: Anxiety, Depression Hematologic/Lymphatic: No: Easy Bruising Physical Exam Narrative GENERAL: Chronically ill-appearing male with labored breathing SKIN: Focused skin assessment warm/dry. HEAD: Atraumatic. Normocephalic. EYES: Pupils equal and round. No scleral icterus. No injection or drainage. ENT: No nasal bleeding or discharge. Mucous membranes pink and moist. NECK: Trachea midline. No JVD. CARDIOVASCULAR: Regular rate and rhythm. No murmur appreciated. RESPIRATORY: There is accessory muscle use. There are bibasilar rales Breath sounds equal bilaterally. GASTROINTESTINAL: Abdomen soft, non-tender, nondistended. Hepatic and splenic margins not palpable. MUSCULOSKELETAL: No obvious deformities. No clubbing. No cyanosis. Bilateral pedal edema NEUROLOGICAL: Awake and alert. No obvious cranial nerve deficits. Motor grossly within normal limits. Normal speech. PSYCHIATRIC: Appropriate mood and affect; insight and judgment normal. Data Data Last Documented VS Vital Signs Date Time Temp Pulse Resp B/P (MAP) Pulse Ox O2 Delivery O2 Flow Rate FiO2 12/13/17 10:59 82 16 110/72 (85) 95 Nasal Cannula 2.00 12/13/17 09:15 97.6 Orders Orders Complete Blood Count With Diff (12/13/17 09:40) Comprehensive Metabolic Panel (12/13/17 09:40) B-Type Natriuretic Peptide (12/13/17 09:40) Act Partial Throm Time (Ptt) (12/13/17 09:40) Prothrombin Time / Inr (Pt) (12/13/17 09:40) Magnesium (Mg) (12/13/17 09:40) Troponin I (12/13/17 09:40) Urinalysis - C+S If Indicated (12/13/17 09:40) Influenzae A/B Antigen (12/13/17 09:40) Blood Culture (12/13/17 09:40) Iv Access Insert/Monitor (12/13/17 09:40) Ecg Monitoring (12/13/17 09:40) Oximetry (12/13/17 09:40) Oxygen Administration (12/13/17 09:40) Chest, Single Ap (12/13/17 09:40) Sodium Chloride 0.9% Flush (Ns Flush) (12/13/17 09:45) Oseltamivir (Tamiflu) (12/13/17 11:00) Furosemide Inj (Lasix Inj) (12/13/17 11:15) Labs Laboratory Tests Test 12/13/17 09:40 White Blood Count 7.1 TH/MM3 Red Blood Count 3.95 MIL/MM3 Hemoglobin 12.1 GM/DL Hematocrit 35.9 % Mean Corpuscular Volume 91.0 FL Mean Corpuscular Hemoglobin 30.8 PG Mean Corpuscular Hemoglobin Concent 33.8 % Red Cell Distribution Width 17.9 % Platelet Count 90 TH/MM3 Mean Platelet Volume 9.7 FL Neutrophils (%) (Auto) 72.8 % Lymphocytes (%) (Auto) 8.0 % Monocytes (%) (Auto) 9.3 % Eosinophils (%) (Auto) 9.1 % Basophils (%) (Auto) 0.8 % Neutrophils # (Auto) 5.1 TH/MM3 Lymphocytes # (Auto) 0.6 TH/MM3 Monocytes # (Auto) 0.7 TH/MM3 Eosinophils # (Auto) 0.6 TH/MM3 Basophils # (Auto) 0.1 TH/MM3 CBC Comment DIFF FINAL Differential Comment AUTO DIFF CONFIRMED Platelet Estimate LOW Platelet Morphology Comment NORMAL Crenated Cell 2+ Prothrombin Time 12.3 SEC Prothromb Time International Ratio 1.2 RATIO Activated Partial Thromboplast Time 30.0 SEC Blood Urea Nitrogen 50 MG/DL Creatinine 2.00 MG/DL Random Glucose 162 MG/DL Total Protein 7.5 GM/DL Albumin 3.4 GM/DL Calcium Level 9.1 MG/DL Magnesium Level 2.2 MG/DL Alkaline Phosphatase 198 U/L Aspartate Amino Transf (AST/SGOT) 43 U/L Alanine Aminotransferase (ALT/SGPT) 30 U/L Total Bilirubin 0.6 MG/DL Sodium Level 138 MEQ/L Potassium Level 4.7 MEQ/L Chloride Level 101 MEQ/L Carbon Dioxide Level 26.7 MEQ/L Anion Gap 10 MEQ/L Estimat Glomerular Filtration Rate 32 ML/MIN Troponin I LESS THAN 0.02 NG/ML B-Type Natriuretic Peptide 1955 PG/ML MDM Medical Decision Making Medical Screen Exam Complete: Yes Emergency Medical Condition: Yes Medical Record Reviewed: Yes Differential Diagnosis Differential includes CHF, COPD, pneumonia Narrative Course BNP is 2000. Patient has been given some additional Lasix as well as blood pressure is somewhat low. His creatinine is 2.0. Diagnosis Primary Impression: Congestive heart failure (CHF) Agusto Jerome MD Dec 13, 2017 09:43
[2017-12-13] MEDS ORDERED: SODIUM CHLORIDE 0.9% FLUSH 10 ML FLUSH IVF PRN (09:45)
[2017-12-13 10:02] LABS: AUTOMATED NEUTROPHIL # 5.1 TH/MM3 (1.8-7.7); BASOPHIL # 0.1 TH/MM3 (0-0.2); BASOPHIL % 0.8 % (0.0-2.0); EOSINOPHIL # 0.6 TH/MM3 (0-0.4); EOSINOPHIL % 9.1 % (0.0-4.0); HEMATOCRIT 35.9 % (39.0-51.0); HEMOGLOBIN 12.1 GM/DL (13.0-17.0); LYMPHOCYTE # 0.6 TH/MM3 (1.0-4.8); MEAN CORPUSCULAR HEMOGLOBIN 30.8 PG (27.0-34.0); MEAN CORPUSCULAR HGB CONC 33.8 % (32.0-36.0); MEAN PLATELET VOLUME 9.7 FL (7.0-11.0); MONO % 9.3 % (0.0-8.0); MONOCYTE # 0.7 TH/MM3 (0-0.9); NEUT % 72.8 % (16.0-70.0); PLATELET COUNT 90 TH/MM3 (150-450); RED BLOOD COUNT 3.95 MIL/MM3 (4.50-5.90); RED CELL DISTRIBUTION WIDTH 17.9 % (11.6-17.2); WHITE BLOOD COUNT 7.1 TH/MM3 (4.0-11.0)
[2017-12-13 10:11] LABS: CHLORIDE 101 MEQ/L (98-107); SODIUM (NA) 138 MEQ/L (136-145)
[2017-12-13 10:15] LABS: ALBUMIN 3.4 GM/DL (3.4-5.0); BICARBONATE 26.7 MEQ/L (21.0-32.0); CALCIUM 9.1 MG/DL (8.5-10.1); GLUCOSE,RANDOM 162 MG/DL (74-106); MAGNESIUM 2.2 MG/DL (1.5-2.5)
[2017-12-13 10:16] LABS: BLOOD UREA NITROGEN 50 MG/DL (7-18)
[2017-12-13 10:18] LABS: ALT (GPT) 30 U/L (12-78); INTERNATIONAL NORMALIZED RATIO 1.2 RATIO; PROTHROMBIN TIME - PATIENT 12.3 SEC (9.8-11.6)
[2017-12-13 10:19] LABS: AST (GOT) 43 U/L (15-37); GLOMERULAR FILTRATION RATE 32 ML/MIN (>89)
[2017-12-13 10:20] LABS: TOTAL BILIRUBIN ADULT 0.6 MG/DL (0.2-1.0); TOTAL PROTEIN 7.5 GM/DL (6.4-8.2)
[2017-12-13 10:21] LABS: ALKALINE PHOSPHATASE 198 U/L (45-117)
[2017-12-13 10:24] LABS: TROPONIN I LESS THAN 0.02 NG/ML (0.02-0.05)
--- NOTE | 2017-12-13 10:35 | RADRPT ---
EXAM DATE/TIME: 12/13/2017 10:15 [facility] COMPARISON: CHEST SINGLE AP, October 23, 2017, 17:43. INDICATIONS : Short of Breath MEDICAL HISTORY : Emphysema. Chronic obstructive pulmonary disease Hypercholesterolemia.Hypertension, Asthma, Myocardia l infarction, Coronary artery disease, CHF.Hypothyroid SURGICAL HISTORY : Cardiac cath, Right lung biopsy, Coronary artery stent ENCOUNTER: Initial ACUITY: 1 day PAIN SCORE: 0/10 LOCATION: chest FINDINGS: Portable AP view of the chest demonstrates cardiac silhouette size at the upper limits for normal. Krystyna ngs are underinflated and there is atelectasis at the lung bases. No pleural effusion or pneumothorax is identified. The bones and soft tissues demonstrate no acute finding. CONCLUSION: Underinflation with likely atelectasis at the lung bases. Otherwise, no acute finding is identified. Brady Carlson MD on December 13, 2017 at 10:33 Board Certified Radiologist. This report was verified electronically.
[2017-12-13] MEDS ORDERED: OSELTAMIVIR PHOSPHATE 75 MG CAP PO ONE (11:00)
[2017-12-13] MEDS ORDERED: FUROSEMIDE 20 MG/2 ML VIAL IV PUSH ONE (11:15)
[2017-12-13 11:39] LABS: BILIRUBIN, URINE NEG (NEG); BLOOD, URINE NEG (NEG); GLUCOSE,URINE NEG (NEG); KETONE, URINE NEG (NEG); NITRITE,URINE NEG (NEG); PH, URINE 5.5 (5.0-8.5); URINE LEUKOCYTE ESTERASE SMALL (NEG)
[2017-12-13] MEDS ORDERED: oxyCODONE/ACETAMINOPHEN 5 MG/325 MG TAB PO PRN (11:45)
[2017-12-13] MEDS ORDERED: LACTULOSE SYRUP 20 GM/30 ML CUP PO PRN (11:45)
[2017-12-13] MEDS ORDERED: SODIUM CHLORIDE 0.9% FLUSH 10 ML FLUSH IV FLUSH PRN ×2 (11:45)
[2017-12-13] MEDS: DOCUSATE SODIUM 50 MG/SENNA 8.6 MG TAB PO SCH ×2 (11:45→21:52)
[2017-12-13] MEDS: SODIUM CHLORIDE 0.9% FLUSH 10 ML FLUSH IV FLUSH SCH ×2 (11:45→20:04)
[2017-12-13] MEDS ORDERED: NALOXONE HCL 0.4 MG/ML AMP IV PUSH PRN (11:45)
[2017-12-13] MEDS ORDERED: ACETAMINOPHEN 325 MG TAB PO PRN ×2 (11:45)
[2017-12-13] MEDS ORDERED: MORPHINE SULFATE 2 MG/ML INJ IV PUSH PRN ×2 (11:45)
[2017-12-13] MEDS ORDERED: ONDANSETRON HCL 4 MG/2 ML VIAL IVP PRN (11:45)
[2017-12-13] MEDS ORDERED: SENNOSIDES 8.6 MG TAB PO PRN (11:45)
[2017-12-13] MEDS ORDERED: oxyCODONE/ACETAMINOPHEN 10 MG/325 MG TAB PO PRN (11:45)
[2017-12-13] MEDS ORDERED: SODIUM CHLORIDE 0.9% FLUSH 10 ML FLUSH IV FLUSH SCH (11:45)
[2017-12-13 11:51] LABS: URINE COLOR YELLOW (YELLW/STRAW)
[2017-12-13 11:52] LABS: WBC, URINE 0-2 /hpf (0-5); WHITE BLOOD CELL CLUMPS OCC
[2017-12-13 11:59] LABS: SQUAMOUS EPITHELIAL CELL URINE 0-2 /hpf (0-5)
[2017-12-13] MEDS ORDERED: BISACODYL EC 5 MG TABEC PO PRN (12:00)
[2017-12-13] MEDS ORDERED: DEXTROSE 50% IN WATER 50 ML VIAL(D50) IV PUSH PRN (12:00)
[2017-12-13] MEDS ORDERED: MAGNESIUM HYDROXIDE SUSP 30 ML CUP PO PRN (12:00)
[2017-12-13] MEDS ORDERED: BISACODYL 10 MG SUPP RECTAL PRN (12:00)
[2017-12-13] MEDS ORDERED: GLUCAGON 1 MG/ML VIAL OTHER PRN (12:00)
[2017-12-13] MEDS ORDERED: METOCLOPRAMIDE HCL 10 MG/2 ML VIAL IV PUSH PRN (12:00)
[2017-12-13] MEDS ORDERED: traMADol HCL 50 MG TAB PO PRN (12:00)
[2017-12-13] MEDS: POTASSIUM CHLORIDE 20 MEQ CONTROLLED RELEASE TAB PO SCH ×2 (12:08→21:52)
[2017-12-13] MEDS: PRIMIDONE 50 MG TAB PO SCH ×2 (13:13→18:22)
[2017-12-13] MEDS: HEPARIN SODIUM - SQ 10,000 UNITS/ML VIAL SQ SCH ×2 (13:14→21:52)
[2017-12-13] MEDS: INSULIN ASPART SUPPLEMENTAL SCALE SQ SCH ×3 (13:18→20:52)
--- NOTE | 2017-12-13 14:23 | HHI.HP ---
[facility] Service [facility] Primary Care Physician Jigna Espino MD Admission Diagnosis Congestive heart failure Diagnoses: (1) Influenza A (2) COPD with exacerbation (3) Acute exacerbation of CHF (congestive heart failure) Chief Complaint: Dyspnea and edema Travel History International Travel<30 Days: No Contact w/Intl Traveler <30 Da: No Traveled to Known Affected Are: No History of Present Illness This is a pleasant 82-year-old male patient with a known medical history of CAD and IL on Plavix, COPD, CHF, hypertension, hyperlipidemia, history of bilateral PE who presented to the ED with complaints of increasing dyspnea and bilateral lower extremity edema. Patient states that over the last couple weeks he is had increasing dyspnea with activities of daily living, states that no matter what he does he feels short of breath and weak. Over the past week he has developed increasing lower extremity edema. His auto hauler is Dr. Carrillo he was seen last week. He has recently decreased his Lasix to 40 mg p.o. daily from twice daily with intermittently taking an extra dose if needed. He states that he has been taking an extra dose for the past several days. Patient does have home O2, uses it intermittently for shortness of breath and at night. Patient denies any recent chest pain, fevers, chills, cough, abdominal pain, nausea, vomiting or diarrhea. He lives at home with his who assist with his daily activities. There is report of patient being hospitalized first week of October with CHF exacerbation. It should also be noted that patient fell at home, missing his walker and landed on his right side fracturing 3 ribs was evaluated by ER doctor with no further recommendations. PCP is Dr. Lee. Review of Systems Constitutional: COMPLAINS OF: Fatigue, DENIES: Diaphoretic episodes, Fever, Chills Eyes: DENIES: Blurred vision, Diplopia Respiratory: COMPLAINS OF: Shortness of breath, DENIES: Cough, Sputum production Cardiovascular: COMPLAINS OF: Lower Extremity Edema, Orthopnea, DENIES: Chest pain, Palpitations, Syncope Gastrointestinal: DENIES: Abdominal pain, Black stools, Bloody stools, Constipation, Diarrhea, Nausea, Vomiting Psychiatric: DENIES: Anxiety Except as stated in HPI: all other systems reviewed are Neg Past Family Social History Past Medical History History of CHF, asthma, arthritis, hyperlipidemia, COPD, CAD with history of IL and stent placement, diabetes, GERD, history of bilateral PE, enlarged prostate , hypertension Past Surgical History History of bilateral inguinal hernia repair Cardiac stent placement Right lung biopsy Reported Medications Active Ultram (Tramadol HCl) 50 Mg Tab 50 Mg PO Q6H PRN Lasix (Furosemide) 40 Mg Tab 40 Mg PO BID Spironolactone 25 Mg Tab 12.5 Mg PO DAILY Lisinopril 2.5 Mg Tab 2.5 Mg PO DAILY Oxygen tank (Oxygen) 1 Ea Tank 2 Liter SUZANNE.CANLewis Tank Transport CONTINUOUS Oxygen Concentrator Portable Gaseous 2 L/min via Nasal Cannula Continuous For 99 months Proair Hfa 8.5 GM Inh (Albuterol Sulfate) 90 Mcg/Act Aer 2 Puff INH Q4-6H PRN 108 mcg/actuation Reported Albuterol Neb (Albuterol Sulfate) Unknown Strength Neb Unknown Dose NEB QID NEB PRN Cetirizine (Cetirizine HCl) 10 Mg Tab 10 Mg PO DAILY Lantus Inj (Insulin Glargine) 1,000 Unit/10 Ml Vial 14 Units SQ HS Breo Ellipta Inh (Fluticasone/Vilanterol) 200-25 Mcg/Act Inh 2 Puff INH DAILY Use daily at the same time. Omeprazole 20 Mg Tab 20 Mg PO BID Vitamin D3 (Cholecalciferol) 1,000 Unit Tab 1,000 Units PO DAILY Preservision Areds (Multiple Vitamins W/ Minerals) 1 Tab 1 Tab PO DAILY Dulcolax DR (Bisacodyl) 5 Mg Tabdr 5 Mg PO DAILY PRN Primidone 50 Mg Tab 250 Mg PO TID Nitrostat SL (Nitroglycerin) 0.4 Mg Subl 0.4 Mg SL DIRECTED PRN 1 tablet under the tongue as needed for chest pain. Repeat every 5 minutes for a total of 3 DOSES or call 911 if NO relief. Finasteride 5 Mg Tab 5 Mg PO HS Do not crush. Atorvastatin (Atorvastatin Calcium) 40 Mg Tab 40 Mg PO HS Plavix (Clopidogrel Bisulfate) 75 Mg Tab 75 Mg PO DAILY Allergies: Coded Allergies: insulin isophane (NPH) (Verified Allergy, Severe, NPH SPECIFIC RASH - ABLE TO TAKE HUMALOG, 12/13/17) latex (Verified Allergy, Severe, Rash, 12/13/17) tiotropium (Verified Allergy, Severe, DIFFICULTY URINATING, 12/13/17) ciprofloxacin (Verified Allergy, Intermediate, 12/13/17) sores in mouth prednisone (Verified Allergy, Intermediate, 12/13/17) heartburn/hiccups Uncoded Allergies: FLONASE (Allergy, Severe, 10/27/17) ... Active Ordered Medications Current Medications Medications (Trade) Dose Ordered Sig/Meli Route Start Time Stop Time Status Last Admin (NS Flush) 2 ml UNSCH PRN IVF 12/13/17 09:45 (NS Flush) 2 ml BID IV FLUSH 12/13/17 11:45 12/13/17 11:45 (NS Flush) 2 ml UNSCH PRN IV FLUSH 12/13/17 11:45 (Lasix Inj) 40 mg BID@,18 IVP 12/13/17 18:00 (KCl) 20 meq BID PO 12/13/17 11:45 12/13/17 12:08 (Heparin Inj) 5,000 units Q8HR SQ 12/13/17 14:00 (Tylenol) 650 mg Q4H PRN PO 12/13/17 11:45 (Zofran Inj) 4 mg Q6H PRN IVP 12/13/17 11:45 (Reglan Inj) 5 mg Q6HR PRN IV PUSH 12/13/17 12:00 (Tylenol) 650 mg Q6H PRN PO 12/13/17 11:45 (Percocet 5-325 Mg) 1 tab Q6H PRN PO 12/13/17 11:45 (Percocet 10-325 Mg) 1 tab Q6H PRN PO 12/13/17 11:45 (Morphine Inj) 2 mg Q3H PRN IV PUSH 12/13/17 11:45 (Morphine Inj) 4 mg Q3H PRN IV PUSH 12/13/17 11:45 (Narcan Inj) 0.4 mg UNSCH PRN IV PUSH 12/13/17 11:45 (Susan-Colace) 1 tab BID PO 12/13/17 11:45 (Milk Of Magnesia Liq) 30 ml Q12HR PRN PO 2/26/18 12:00 (Senokot) 17.2 mg Q12HR PRN PO 12/13/17 11:45 (Dulcolax Supp) 10 mg DAILY PRN RECTAL 12/13/17 12:00 (Lactulose Liq) 30 ml DAILY PRN PO 12/13/17 11:45 (Lipitor) 40 mg HS PO 12/13/17 21:00 (Dulcolax Ec) 5 mg DAILY PRN PO 12/13/17 12:00 (ZyrTEC) 10 mg DAILY PO 12/14/17 09:00 (Vitamin D3) 1,000 units DAILY PO 12/14/17 09:00 (Plavix) 75 mg DAILY PO 12/14/17 09:00 (Proscar) 5 mg HS PO 12/13/17 21:00 (Breo Ellipta 200-25 Inh) 2 puff DAILY INH 12/14/17 09:00 (Levemir Inj) 14 units HS SQ 12/13/17 21:00 (Mysoline) 250 mg TID PO 12/13/17 13:00 12/13/17 13:13 (Aldactone) 12.5 mg DAILY PO 12/14/17 09:00 (Ultram) 50 mg Q6HR PRN PO 12/13/17 12:00 (Prinivil) 2.5 mg DAILY PO 12/14/17 09:00 (Theragran M Tab) 1 tab DAILY PO 12/14/17 09:00 (Protonix) 40 mg DAILY PO 12/14/17 09:00 (D50w (Vial) Inj) 50 ml UNSCH PRN IV PUSH 12/13/17 12:00 (Glucagon Inj) 1 mg UNSCH PRN OTHER 12/13/17 12:00 (NovoLOG SUPPLEMENTAL SCALE) 1 ACHS SLIDING SCALE SQ 12/13/17 12:00 12/13/17 13:18 (Duoneb Neb) 1 ampule Q6HR WHILE AWAKE NEB NEB 12/13/17 20:00 (Duoneb Neb) 1 ampule Q2HR NEB PRN NEB 12/13/17 16:00 12/13/17 15:29 (Proair Hfa Inh) 2 puff BID PRN INH 12/13/17 14:30 (Tamiflu) 75 mg BID PO 12/13/17 21:00 Family History Family history significant for diabetes. Social History Patient denies any tobacco, alcohol, illicit drug use. Physical Exam Vital Signs Vital Signs Date Time Temp Pulse Resp B/P (MAP) Pulse Ox O2 Delivery O2 Flow Rate FiO2 12/13/17 12:38 12/13/17 11:30 96.4 86 20 110/69 (83) 95 12/13/17 10:59 82 16 110/72 (85) 95 Nasal Cannula 2.00 12/13/17 10:11 95 Nasal Cannula 2.00 12/13/17 10:11 95 Nasal Cannula 2.00 12/13/17 09:15 97.6 85 22 101/68 (79) 99 Physical Exam GENERAL: Well-developed, elderly thin male patient sitting up in bed on supplemental O2. With some accessory muscle use. SKIN: Warm and dry. No rash. HEAD: Normocephalic. Atraumatic. EYES: Pupils equal and round. No scleral icterus. No injection or drainage. ENT: No nasal bleeding or discharge. Mucous membranes pink and moist. NECK: Supple. Trachea midline. CARDIOVASCULAR: Regular rate and rhythm. S1, S2 noted. RESPIRATORY: Diffuse right basilar wheezing. Breath sounds equal bilaterally. GASTROINTESTINAL: Abdomen soft, non-tender, nondistended. Normoactive bowel sounds x4. MUSCULOSKELETAL: No obvious deformities. Extremities without clubbing, cyanosis. Bilateral lower extremity edema, 2+ pitting. NEUROLOGICAL: Awake and alert. No obvious cranial nerve deficits. Motor grossly within normal limits. 4/5 muscle strength in bilateral upper and lower extremities. Normal speech. PSYCHIATRIC: Appropriate mood and affect; insight and judgment normal. Laboratory Laboratory Tests Test 12/13/17 09:40 12/13/17 11:26 White Blood Count 7.1 Red Blood Count 3.95 Hemoglobin 12.1 Hematocrit 35.9 Mean Corpuscular Volume 91.0 Mean Corpuscular Hemoglobin 30.8 Mean Corpuscular Hemoglobin Concent 33.8 Red Cell Distribution Width 17.9 Platelet Count 90 Mean Platelet Volume 9.7 Neutrophils (%) (Auto) 72.8 Lymphocytes (%) (Auto) 8.0 Monocytes (%) (Auto) 9.3 Eosinophils (%) (Auto) 9.1 Basophils (%) (Auto) 0.8 Neutrophils # (Auto) 5.1 Lymphocytes # (Auto) 0.6 Monocytes # (Auto) 0.7 Eosinophils # (Auto) 0.6 Basophils # (Auto) 0.1 CBC Comment DIFF FINAL Differential Comment AUTO DIFF CONFIRMED Platelet Estimate LOW Platelet Morphology Comment NORMAL Crenated Cell 2+ Prothrombin Time 12.3 Prothromb Time International Ratio 1.2 Activated Partial Thromboplast Time 30.0 Blood Urea Nitrogen 50 Creatinine 2.00 Random Glucose 162 Total Protein 7.5 Albumin 3.4 Calcium Level 9.1 Magnesium Level 2.2 Alkaline Phosphatase 198 Aspartate Amino Transf (AST/SGOT) 43 Alanine Aminotransferase (ALT/SGPT) 30 Total Bilirubin 0.6 Sodium Level 138 Potassium Level 4.7 Chloride Level 101 Carbon Dioxide Level 26.7 Anion Gap 10 Estimat Glomerular Filtration Rate 32 Total Creatine Kinase 149 Troponin I LESS THAN 0.02 B-Type Natriuretic Peptide 1954 Urine Collection Type VOIDED Urine Color YELLOW Urine Turbidity CLEAR Urine pH 5.5 Urine Specific [place] 1.014 Urine Protein NEG Urine Glucose (UA) NEG Urine Ketones NEG Urine Occult Blood NEG Urine Nitrite NEG Urine Bilirubin NEG Urine Leukocyte Esterase SMALL Urine WBC 0-2 Urine WBC Clumps OCC Urine Squamous Epithelial Cells 0-2 Microscopic Urinalysis Comment CULTURE INDICATED Date/Time Source Procedure Growth Status 12/13/17 09:46 Blood Peripheral Aerobic Blood Culture Pending Received 12/13/17 09:46 Blood Peripheral Anaerobic Blood Culture Pending Received 12/13/17 09:46 Nasal Aspirate Influenza Types A,B Antigen (IVY) - Final Positive For Flu A Antigen Complete 12/13/17 11:26 Urine Random Urine Urine Culture Pending Received Result Diagram: 12/13/1740 12/13/17 0940 Imaging Last Impressions Chest X-Ray 12/13/17 0940 Signed Impressions: Service Date/Time: Wednesday, December 13, 2017 10:15 - CONCLUSION: Underinflation with likely atelectasis at the lung bases. Otherwise, no acute finding is identified. Brady Carlson MD Septic Shock Reassessment Septic shock perfusion: reassessment completed Caprini VTE Risk Assessment Caprini VTE Risk Assessment: Mod/High Risk (score >= 2) Caprini Risk Assessment Model Point Value = 1 Point Value = 2 Point Value = 3 Point Value = 5 Age 41-60 Minor surgery BMI > 25 kg/m2 Swollen legs Varicose veins or History of unexplained or recurrent spontaneous Oral contraceptives or hormone replacement Sepsis (< 1 month) Serious lung disease, including pneumonia (< 1 month) Abnormal pulmonary function Acute myocardial infarction Congestive heart failure (< 1 month) History of inflammatory bowel disease Medical patient at bed rest Age 61-74 Arthroscopic surgery Major open surgery (> 45 min) Laparoscopic surgery (> 45 min) Malignancy Confined to bed (> 72 hours) Immobilizing plaster cast Central venous access Age >= 75 History of VTE Family history of VTE Factor V Leiden Prothrombin [id number] Lupus anticoagulant Anticardiolipin antibodies Elevated serum homocysteine Heparin-induced thrombocytopenia Other congenital or acquired thrombophilia Stroke (< 1 month) Elective arthroplasty Hip, pelvis, or leg fracture Acute spinal cord injury (< 1 month) Prophylaxis Regimen Total Risk Factor Score Risk Level Prophylaxis Regimen 0-1 Low Early ambulation 2 Moderate Order ONE of the following: *Sequential Compression Device (SCD) *Heparin 5000 units SQ BID 3-4 Higher Order ONE of the following medications: *Heparin 5000 units SQ TID *Enoxaparin/Lovenox 40 mg SQ daily (WT < 150 kg, CrCl > 30 mL/min) *Enoxaparin/Lovenox 30 mg SQ daily (WT < 150 kg, CrCl > 10-29 mL/min) *Enoxaparin/Lovenox 30 mg SQ BID (WT < 150 kg, CrCl > 30 mL/min) AND/OR *Sequential Compression Device (SCD) 5 or more Highest Order ONE of the following medications: *Heparin 5000 units SQ TID (Preferred with Epidurals) *Enoxaparin/Lovenox 40 mg SQ daily (WT < 150 kg, CrCl > 30 mL/min) *Enoxaparin/Lovenox 30 mg SQ daily (WT < 150 kg, CrCl > 10-29 mL/min) *Enoxaparin/Lovenox 30 mg SQ BID (WT < 150 kg, CrCl > 30 mL/min) AND *Sequential Compression Device (SCD) Assessment and Plan Assessment and Plan This is a pleasant 82-year-old male patient with a known medical history of CAD and IL on Plavix, COPD, CHF, hypertension, hyperlipidemia, history of bilateral PE who presented to the ED with complaints of increasing dyspnea and bilateral lower extremity edema. Acute on chronic systolic heart failure, systolic BNP 1955. Chest x-ray reviewed showing underinflation with likely atelectasis at the lung bases. No acute findings. Echocardiogram reviewed from 2014 showing EF of 15%. Echocardiogram ordered , pending and follow. Patient follows with Dr. Carrillo, cardiology. EKG reviewed showing sinus rhythm with controlled heart rate, no ST changes or arrhythmias. Patient placed on Lasix 40 mg IV twice daily. Supplemental potassium. Monitor intake and output closely. Fluid restriction. Continue cardiac symmetry, monitor for any arrhythmias. PT evaluation, appreciate input recommendations. Influenza A positive COPD with possible Exacerbation Chest x-ray reviewed see above. Influenza positive for A antigen. Does not meet sepsis criteria. No leukocytosis. Afebrile. Blood cultures ordered and pending. Continue to follow growth. Continue home duo nebs scheduled and as needed as needed for wheezing. Continue home inhalers. Given dose of methylprednisone IV 125mg 1, will start on scheduled IV, taper. Supplemental O2, patient is requiring 2 L nasal cannula, oxygen saturations 95%. Abnormal UA: UA showing small amount of leukocyte esterase. Occasional white blood cell clumps. Urine culture pending. Patient is afebrile, no leukocytosis. Will continue to follow labs. Hold off on antibiotics until urine culture growth. Chronic kidney disease stage III: Creatinine 2.0 on presentation. After review of history this is close to baseline for patient. Supportive care. CAD with history of IL and stent placement: Continue home Plavix. Hypertension, chronic: Continue home lisinopril. Monitor BP trends. Type 2 diabetes mellitus, chronic: Before meals at bedtime Accu-Cheks, sliding scale insulin, cover as needed. Monitor BP trends. Continue Levemir 14 units every night. Hyperlipidemia, chronic: Continue home statin. DVT prophylaxis: SCDs. Heparin. Physician Certification 2 Midnight Certification Type: Admission for Inpatient Services Order for Inpatient Services The services are ordered in accordance with Medicare regulations or non- Medicare payer requirements, as applicable. In the case of services not specified as inpatient-only, they are appropriately provided as inpatient services in accordance with the 2-midnight benchmark. Estimated LOS (days): 3 3 days is the estimated time the patient will need to remain in the hospital, assuming treatment plan goals are met and no additional complications. Post-Hospital Plan: Not yet determined Veronica Fischer Dec 13, 2017 14:23
[2017-12-13] MEDS ORDERED: ALBUTEROL SULFATE 90 MCG/ACT HFA 8 GM INHALER INH PRN (14:30)
[2017-12-13] MEDS: RESP: ALBUTEROL 2.5 MG/IPRATROPIUM 0.5 MG NEB (PRN) NEB (15:29)
[2017-12-13] MEDS ORDERED: methylPREDNISolone SOD SUCC 125 MG/2 ML VIAL IV PUSH ONE (18:00)
[2017-12-13] MEDS: FUROSEMIDE 40 MG/4 ML VIAL IVP SCH (18:22)
[2017-12-13 18:31] LABS: MAGNESIUM 2.2 MG/DL (1.5-2.5)
[2017-12-13 18:39] LABS: TROPONIN I LESS THAN 0.02 NG/ML (0.02-0.05)
[2017-12-13] MEDS ORDERED: PROCHLORPERAZINE MALEATE 5 MG TAB PO PRN (19:00)
[2017-12-13] MEDS: RESP: ALBUTEROL 2.5 MG/IPRATROPIUM 0.5 MG NEB (SCH) NEB (20:37)
[2017-12-13] MEDS: INSULIN DETEMIR 100 UNITS/ML VIAL SQ SCH (21:51)
[2017-12-13] MEDS: OSELTAMIVIR PHOSPHATE 75 MG CAP PO SCH (21:52)
[2017-12-13] MEDS: ATORVASTATIN 40 MG TAB PO SCH (21:52)
[2017-12-13] MEDS: FINASTERIDE 5 MG TAB PO SCH (21:52)
[2017-12-14] VITALS (10 sets, daily range): BP systolic 84–108; BP diastolic 58–78; PULSE 78–93; RESP 17–18; TEMP 96.2–97.5; O2SAT 95–99
[2017-12-14] MEDS: methylPREDNISolone SOD SUCC 40 MG/1 ML VIAL IV PUSH SCH ×5 (02:07→22:51)
[2017-12-14] MEDS: HEPARIN SODIUM - SQ 10,000 UNITS/ML VIAL SQ SCH ×3 (04:50→23:12)
[2017-12-14] MEDS: RESP: ALBUTEROL 2.5 MG/IPRATROPIUM 0.5 MG NEB (SCH) NEB ×3 (07:33→20:15)
[2017-12-14 07:42] LABS: AUTOMATED NEUTROPHIL # 3.5 TH/MM3 (1.8-7.7); BASOPHIL % 0.2 % (0.0-2.0); EOSINOPHIL % 0.5 % (0.0-4.0); HEMATOCRIT 36.1 % (39.0-51.0); HEMOGLOBIN 11.7 GM/DL (13.0-17.0); LYMPH % 7.4 % (9.0-44.0); LYMPHOCYTE # 0.3 TH/MM3 (1.0-4.8); MEAN CELL VOLUME 91.8 FL (80.0-100.0); MEAN CORPUSCULAR HEMOGLOBIN 29.7 PG (27.0-34.0); MEAN CORPUSCULAR HGB CONC 32.3 % (32.0-36.0); MEAN PLATELET VOLUME 9.9 FL (7.0-11.0); MONO % 4.9 % (0.0-8.0); MONOCYTE # 0.2 TH/MM3 (0-0.9); PLATELET COUNT 89 TH/MM3 (150-450); RED BLOOD COUNT 3.94 MIL/MM3 (4.50-5.90); RED CELL DISTRIBUTION WIDTH 17.4 % (11.6-17.2)
[2017-12-14 07:45] LABS: CHLORIDE 102 MEQ/L (98-107); SODIUM (NA) 136 MEQ/L (136-145)
[2017-12-14 07:48] LABS: ALBUMIN 3.1 GM/DL (3.4-5.0); BLOOD UREA NITROGEN 56 MG/DL (7-18); CALCIUM 8.4 MG/DL (8.5-10.1); GLUCOSE,RANDOM 152 MG/DL (74-106); MAGNESIUM 2.3 MG/DL (1.5-2.5)
[2017-12-14 07:51] LABS: ALT (GPT) 39 U/L (12-78); AST (GOT) 50 U/L (15-37)
[2017-12-14 07:52] LABS: PHOSPHORUS 3.9 MG/DL (2.5-4.9)
[2017-12-14 07:53] LABS: TOTAL BILIRUBIN ADULT 0.6 MG/DL (0.2-1.0); TOTAL PROTEIN 6.9 GM/DL (6.4-8.2)
[2017-12-14 07:54] LABS: ALKALINE PHOSPHATASE 200 U/L (45-117)
[2017-12-14 07:55] LABS: GLOMERULAR FILTRATION RATE 32 ML/MIN (>89)
[2017-12-14] MEDS: INSULIN ASPART SUPPLEMENTAL SCALE SQ SCH ×4 (08:00→23:09)
[2017-12-14] MEDS: CHOLECALCIFEROL (VIT D3) 1000 UNIT TAB PO SCH (08:02)
[2017-12-14] MEDS: AZITHROMYCIN 250 MG TAB PO SCH (08:02)
[2017-12-14] MEDS: OSELTAMIVIR PHOSPHATE 75 MG CAP PO SCH ×2 (08:03→22:51)
[2017-12-14] MEDS: PANTOPRAZOLE SOD 40 MG DELAYED RELEASE TAB PO SCH (08:03)
[2017-12-14] MEDS: MULTIVITAMINS/MINERALS THERAPEUTIC TAB PO SCH (08:03)
[2017-12-14] MEDS: CLOPIDOGREL 75 MG TAB PO SCH (08:04)
[2017-12-14] MEDS: DOCUSATE SODIUM 50 MG/SENNA 8.6 MG TAB PO SCH ×2 (08:04→22:51)
[2017-12-14] MEDS: SPIRONOLACTONE 25 MG TAB PO SCH (08:04)
[2017-12-14] MEDS: POTASSIUM CHLORIDE 20 MEQ CONTROLLED RELEASE TAB PO SCH (08:04)
[2017-12-14] MEDS: LISINOPRIL 5 MG TAB PO SCH (08:05)
[2017-12-14] MEDS: CETIRIZINE HCL 10 MG TAB PO SCH (08:05)
[2017-12-14] MEDS: FUROSEMIDE 40 MG/4 ML VIAL IVP SCH (08:07)
[2017-12-14] MEDS: SODIUM CHLORIDE 0.9% FLUSH 10 ML FLUSH IV FLUSH SCH ×2 (08:08→22:51)
[2017-12-14] MEDS: FLUTICASONE 200 MCG/VILANTEROL 25 MCG INHALER INH SCH (08:09)
[2017-12-14 08:24] LABS: OVALOCYTES 1+ (NORMAL)
[2017-12-14] MEDS: PRIMIDONE 250 MG TAB PO SCH ×3 (08:56→17:27)
[2017-12-14 10:01] LABS: FREE T4 0.75 NG/DL (0.76-1.46)
--- NOTE | 2017-12-14 14:10 | ECHRPT ---
Indication: heart failure CONCLUSIONS Mild LV enlargement. The left ventricular systolic function is severely reduced with an estimated ejection fraction less than 20%. The left atrial size is mildly dilated. Aortic root 4.0 cm. [id number] mitral valve regurgitation. Aortic valve sclerosis is present. Mild aortic valve regurgitation. There is moderate tricuspid regurgitation. The estimated pulmonary arterial pressure is 48 mmHg. BP: / HR: Rhythm: Technical Quality:Good FINDINGS LEFT VENTRICLE Mild LVEE The left ventricular systolic function is severely reduced with an estimated ejection fraction less than 20%. RIGHT VENTRICLE Normal right ventricular size and systolic function. LEFT ATRIUM The left atrial size is mildly dilated. RIGHT ATRIUM The right atrial size is normal. ATRIAL SEPTUM Normal atrial septal thickness without atrial level shunting by limited color doppler interrogation. AORTA Aortic root 4.0 MITRAL VALVE Structurally normal mitral valve. [id number] mitral valve regurgitation. AORTIC VALVE Trileaflet aortic valve. Aortic valve sclerosis is present. Mild aortic valve regurgitation. P1/2t 547 TRICUSPID VALVE Structurally normal tricuspid valve. There is moderate tricuspid regurgitation. The estimated pulmonary arterial pressure is 48__ mmHg. PULMONARY VALVE The pulmonary valve is not well visualized. VESSELS The inferior vena cava is normal in size. PERICARDIUM No pericardial effusion. Sami Hayes MD, FACC (Electronically Signed) Final Date:14 December 2017 14:09
[2017-12-14 16:10] LABS: HEMOGLOBIN A1C 8.1 % (4.3-6.0)
--- NOTE | 2017-12-14 16:22 | HHI.PR ---
Subjective Remarks Patient seen and examined today for follow-up on COPD, CHF. Patient is doing much better from his respiratory status. He is on nasal cannula 2 L. No more wheezing appreciated. Patient states that his only problem at this time is eating. He states that the food is too dry in order to swallow. Otherwise, he is improving. Physical therapy and occupational therapy recommending home with home health care services Objective Vitals Vital Signs Date Time Temp Pulse Resp B/P (MAP) Pulse Ox O2 Delivery O2 Flow Rate FiO2 12/14/17 12:00 96.2 83 18 93/61 (72) 95 12/14/17 08:00 97.2 78 18 91/60 (70) 96 12/14/17 07:35 98 Nasal Cannula 2.00 12/14/17 04:00 96.5 80 18 94/59 (71) 95 12/14/17 00:00 97.0 82 18 108/67 (81) 98 12/13/17 20:38 97 Nasal Cannula 2.00 12/13/17 20:00 97.1 92 18 102/71 (81) 97 I/O 12/13/17 12/13/17 12/13/17 12/14/17 12/14/17 12/14/17 07:00 15:00 23:00 07:00 15:00 23:00 Output Total 350 ml Balance -350 ml Output Urine Total 350 ml # Voids 1 # Bowel Movements 1 Result Diagram: 12/14/17 0645 12/14/17 0645 Objective Remarks GENERAL: Well-developed, well-nourished, in no acute distress. alert and orientated HEENT: Head is normocephalic without any lesions or masses noted. Facial features are symmetric. Eyesextraocular muscles are intact. Conjunctivae were clear. NECK: Supple without any masses. Trachea midline no deviation. No JVD, CARDIAC: Regular rhythm, regular rate. S1/S2 are heard. No murmurs gallops or rubs. LUNGS: Clear to auscultation bilaterally. No wheeze, rhonchi or rales. No use of accessory muscles on inspiration or expiration. ABDOMEN: Soft, nontender. Nondistended. Bowel sounds heard in all 4 quadrants. No organomegaly or masses. Negative rebound, negative guarding EXTREMITIES: No edema, pulses are equal bilaterally. No cyanosis or clubbing NEUROLOGY: Mood and affect appear appropriate. Cranial nerves II through XII grossly intact. Moving all extremities, speech is clear Urinary Catheter: No Vascular Central Line Catheter: No A/P Assessment and Plan Acute on chronic systolic heart failure, systolic BNP 5. Chest x-ray reviewed showing underinflation with likely atelectasis at the lung bases. No acute findings. Echocardiogram reviewed from 2014 showing EF of 15%. Patient follows with Dr. Carrillo, cardiology. Follow-up echocardiogram indicates ejection fraction less than 20%. Aortic valve sclerosis, moderate to severe mitral valve regurgitation, PA peak pressure 48 EKG reviewed showing sinus rhythm with controlled heart rate, no ST changes or arrhythmias. Patient placed on Lasix 40 mg IV twice daily. With significant improvement, resume home medications monitor intake and output closely. Fluid restriction. Influenza A positive Continue Tamiflu Supportive treatment COPD with possible Exacerbation Continue O2 supplementation maintain O2 sats greater than 92% Solu-Medrol 40 mg every 6 hours, change to by mouth prednisone Duo nebs every 6 hours while awake and every 2 hours as needed Continue azithromycin Hyperkalemia Likely secondary to chronic kidney disease, potassium replacement We'll hold potassium supplementation at this time Monitor potassium level Abnormal UA: Likely contamination UA showing small amount of leukocyte esterase. Occasional white blood cell clumps. Squamous epithelial cells 0-2 Urine culture pending. We'll hold antibiotics at this time, weight culture for appropriate management Chronic kidney disease stage III: Creatinine is at baseline Continue monitor renal function next line avoid nephrotoxins Hypertension, hyperlipidemia, coronary artery disease status post stenting Home medications have been continued Type 2 diabetes mellitus, chronic: Accu-Cheks with sliding scale insulin Continued Levemir 14 units nightly DVT prophylaxis: SCDs. Heparin. Discharge Planning Discharge planning, anticipate discharging home with home health care tomorrow if remains clinically stable Andrea Van Dec 14, 2017 16:22
--- NOTE | 2017-12-14 16:25 | HHI.FF ---
Face to Face Verification Diagnosis: (1) Influenza A (2) Acute exacerbation of CHF (congestive heart failure) (3) COPD with exacerbation Physical Therapy Order: Evaluate and Treat, Improve ambulation, Strength and gait training Occupational Therapy Order: Evaluate and Treat, Improve ADL, Gross motor coordination, Fine motor coordination Home Health Nursing Order: Medical education Signs/symptoms of disease process CHF education Nursing assessment with vital signs I have seen patient Eduar Ramirezfold on 12/14/17. My clinical findings support the need for the requested home health care services because: Deconditioned w/ increased weakness Med compliance is questionable Limited ability to care for self I certify that my clinical findings support that this patient is homebound because: Hx COPD- exertion dyspnea/weakness Unsteady gait/balance Unsafe to leave home unassisted Andrea Van Dec 14, 2017 16:25
[2017-12-14] MEDS: FUROSEMIDE 40 MG TAB PO SCH (17:27)
[2017-12-14] MEDS: FINASTERIDE 5 MG TAB PO SCH (22:52)
--- NOTE | 2017-12-14 22:58 | EKG ---
Date Performed: 12/13/2017 Time Performed: 09:33:27 PTAGE: 82 years EKG: Sinus rhythm POSSIBLE LEFT ATRIAL ENLARGEMENT MARKED LEFT AXIS DEVIATION POSSIBLE ANTERIOR MYOCARDIAL INFARCTION ABNORMAL ECG PREVIOUS TRACING : 10/23/2017 18.02 Since the prior tracing, there has been no significant lopez DOCTOR: Sami Hayes Interpretating Date/Time 12/14/2017 22:56:26
[2017-12-14] MEDS: ATORVASTATIN 40 MG TAB PO SCH (23:03)
[2017-12-14] MEDS: INSULIN DETEMIR 100 UNITS/ML VIAL SQ SCH (23:09)
[2017-12-15] VITALS (9 sets, daily range): BP systolic 98–112; BP diastolic 63–76; PULSE 76–88; RESP 17–22; TEMP 95.6–98.1; O2SAT 95–99
[2017-12-15] MEDS: HEPARIN SODIUM - SQ 10,000 UNITS/ML VIAL SQ SCH ×3 (05:31→21:03)
[2017-12-15] MEDS: methylPREDNISolone SOD SUCC 40 MG/1 ML VIAL IV PUSH SCH ×2 (05:31→11:53)
[2017-12-15 06:48] LABS: CALCIUM 8.4 MG/DL (8.5-10.1)
[2017-12-15 06:49] LABS: BICARBONATE 25.5 MEQ/L (21.0-32.0)
[2017-12-15 07:00] LABS: CREATININE 2.5 MG/DL (0.60-1.30)
[2017-12-15] MEDS: RESP: ALBUTEROL 2.5 MG/IPRATROPIUM 0.5 MG NEB (SCH) NEB ×3 (07:36→22:25)
[2017-12-15] MEDS: INSULIN ASPART SUPPLEMENTAL SCALE SQ SCH ×4 (08:00→21:19)
[2017-12-15] MEDS: PANTOPRAZOLE SOD 40 MG DELAYED RELEASE TAB PO SCH (08:01)
[2017-12-15] MEDS: DOCUSATE SODIUM 50 MG/SENNA 8.6 MG TAB PO SCH ×2 (08:02→21:02)
[2017-12-15] MEDS: CLOPIDOGREL 75 MG TAB PO SCH (08:02)
[2017-12-15] MEDS: FUROSEMIDE 40 MG TAB PO SCH (08:02)
[2017-12-15] MEDS: MULTIVITAMINS/MINERALS THERAPEUTIC TAB PO SCH (08:03)
[2017-12-15] MEDS: CHOLECALCIFEROL (VIT D3) 1000 UNIT TAB PO SCH (08:03)
[2017-12-15] MEDS: CETIRIZINE HCL 10 MG TAB PO SCH (08:03)
[2017-12-15] MEDS: OSELTAMIVIR PHOSPHATE 75 MG CAP PO SCH ×2 (08:03→21:02)
[2017-12-15] MEDS: PRIMIDONE 250 MG TAB PO SCH ×3 (08:03→16:49)
[2017-12-15] MEDS: SPIRONOLACTONE 25 MG TAB PO SCH (08:04)
[2017-12-15] MEDS: AZITHROMYCIN 250 MG TAB PO SCH (08:05)
[2017-12-15] MEDS: LISINOPRIL 5 MG TAB PO SCH (08:05)
[2017-12-15] MEDS: FLUTICASONE 200 MCG/VILANTEROL 25 MCG INHALER INH SCH (08:06)
[2017-12-15] MEDS: SODIUM CHLORIDE 0.9% FLUSH 10 ML FLUSH IV FLUSH SCH ×2 (08:07→21:00)
--- NOTE | 2017-12-15 11:21 | HHI.PR ---
Subjective Remarks Patient seen and examined today for follow-up on shortness of breath, CHF, COPD. Patient states that he is doing worse and he was yesterday. Did not sleep well last night. Very fatigued. Discussed with patient and family at bedside Objective Vitals Vital Signs Date Time Temp Pulse Resp B/P (MAP) Pulse Ox O2 Delivery O2 Flow Rate FiO2 12/15/17 08:00 98.0 88 22 100/66 (77) 98 12/15/17 07:38 95 Nasal Cannula 2.00 12/15/17 04:00 96.6 80 17 102/74 (83) 96 12/15/17 00:00 96.8 82 18 103/63 (76) 98 12/14/17 21:00 90 12/14/17 21:00 90 12/14/17 20:15 99 Nasal Cannula 2.00 12/14/17 20:00 97.5 93 17 105/78 (87) 96 12/14/17 16:00 97.0 88 18 84/58 (67) 96 12/14/17 12:00 96.2 83 18 93/61 (72) 95 I/O 12/14/17 12/14/17 12/14/17 12/15/17 12/15/17 12/15/17 07:00 15:00 23:00 07:00 15:00 23:00 Intake Total 240 ml 120 ml Output Total 540 ml Balance 240 ml -420 ml Intake Oral 240 ml 120 ml Output Urine Total 540 ml # Voids 1 # Bowel Movements 1 Result Diagram: 12/14/17 0645 12/15/17 0600 Objective Remarks GENERAL: Well-developed, well-nourished, in no acute distress. alert and orientated HEENT: Head is normocephalic without any lesions or masses noted. Facial features are symmetric. Eyesextraocular muscles are intact. Conjunctivae were clear. NECK: Supple without any masses. Trachea midline no deviation. No JVD, CARDIAC: Regular rhythm, regular rate. S1/S2 are heard. No murmurs gallops or rubs. LUNGS: Clear to auscultation bilaterally. No wheeze, rhonchi or rales. No use of accessory muscles on inspiration or expiration. ABDOMEN: Soft, nontender. Nondistended. Bowel sounds heard in all 4 quadrants. No organomegaly or masses. Negative rebound, negative guarding EXTREMITIES: No edema, pulses are equal bilaterally. No cyanosis or clubbing NEUROLOGY: Mood and affect appear appropriate. Cranial nerves II through XII grossly intact. Moving all extremities, speech is clear Urinary Catheter: No Vascular Central Line Catheter: No A/P Assessment and Plan Acute on chronic systolic heart failure, systolic BNP 1955. Chest x-ray reviewed showing underinflation with likely atelectasis at the lung bases. No acute findings. Echocardiogram reviewed from 2014 showing EF of 15%. Patient follows with Dr. Carrillo, cardiology. Follow-up echocardiogram indicates ejection fraction less than 20%. Aortic valve sclerosis, moderate to severe mitral valve regurgitation, PA peak pressure 48 EKG reviewed showing sinus rhythm with controlled heart rate, no ST changes or arrhythmias. We'll hold Lasix at this time secondary to acute kidney injury monitor intake and output closely. Fluid restriction. Influenza A positive Continue Tamiflu Supportive treatment COPD with possible Exacerbation Continue O2 supplementation maintain O2 sats greater than 92% Solu-Medrol 40 mg every 6 hours, change to by mouth prednisone Duo nebs every 6 hours while awake and every 2 hours as needed Continue azithromycin Hyperkalemia Likely secondary to worsening chronic kidney disease, potassium replacement Continue to hold potassium supplementation, spironolactone, lisinopril at this time Monitor potassium level Abnormal UA: Likely contamination UA showing small amount of leukocyte esterase. Occasional white blood cell clumps. Squamous epithelial cells 0-2 Urine culture showing 10-50,000 mixed nohemy. We'll hold antibiotics at this time, weight culture for appropriate management Acute renal failure superimposed on Chronic kidney disease stage III: Likely secondary to combination of diuresis, poor by mouth intake, Obtain renal, bladder ultrasound Hold lisinopril, spironolactone, Lasix Consult interactive media director for recommendations Continue monitor renal function avoid nephrotoxins Hypertension, hyperlipidemia, coronary artery disease status post stenting Home medications have been continued Type 2 diabetes mellitus, chronic: Accu-Cheks with sliding scale insulin Continued Levemir 14 units nightly DVT prophylaxis: SCDs. Subcutaneous Heparin. Discharge Planning Discharge planning, anticipate discharging home with home health care tomorrow if remains clinically stable Andrea Van Dec 15, 2017 11:21
[2017-12-15] MEDS ORDERED: SODIUM CHLOR 0.9% 1000 ML INJ 1,000 ML IV SCH (13:45)
--- NOTE | 2017-12-15 15:54 | RADRPT ---
EXAM DATE/TIME: 12/15/2017 11:35 [facility] COMPARISON: US KIDNEY/RENAL/BLADDER, September 18, 2015, 15:26. INDICATIONS : Abnormal labs. MEDICAL HISTORY : Hypothyroidism. Myocardial infarction. Hypercholesterolemia. CAD. CHF. Hypertension. COPD. Emphysema. Asthma. DVT. Arthritis. Diabetes. GERD. SURGICAL HISTORY : Coronary artery stent. Rotator cuff, left. Rotator cuff, right. Cardiac cath. Inguinal hernia repair. ENCOUNTER: Initial ACUITY: 1 day PAIN SCORE: 2/10 LOCATION: Bilateral flank MEASUREMENTS: RIGHT KIDNEY: 7.2 x 3.9 x 4.2 cm LEFT KIDNEY: 6.9 x 3.2 x 3.7 cm FINDINGS: RIGHT KIDNEY: Small echogenic cortex hydronephrosis LEFT KIDNEY: Small echogenic cortex hydronephrosis BLADDER: Within normal limits given the degree of distension. CONCLUSION: Small echogenic kidneys without hydronephrosis. Aric Zaragoza MD FACR on December 15, 2017 at 15:52 Board Certified Radiologist. This report was verified electronically.
--- NOTE | 2017-12-15 17:24 | PD.CONS ---
HPI Service Nephrology Consult Requested By Dr. Rojas Reason for Consult ARF/CKD Primary Care Physician Jigna Espino MD History of Present Illness Patient is a 82-year-old white male with history of diabetes, congestive heart failure, valvular heart disease who had been admitted with shortness of breath, patient is found to have less than 20% of ejection fraction, aortic sclerosis and moderate to severe mitral regurgitation, he received diuretics and his creatinine was 2.5 he states he has kidney dysfunction prior to admission. He has a heart attack in 2015 and has severe cardiomyopathy he stated at that time he was under hospice but he got out of the situation, he is very weak and gets tired easily. He is on Tamiflu for influenza A positive Review of Systems Constitutional: COMPLAINS OF: Fatigue Respiratory: COMPLAINS OF: Shortness of breath Cardiovascular: COMPLAINS OF: Dyspnea on Exertion, Lower Extremity Edema, Orthopnea Musculoskeletal: COMPLAINS OF: Joint pain, Muscle aches Neurologic: COMPLAINS OF: Abnormal gait Psychiatric: COMPLAINS OF: Anxiety Past Family Social History Allergies: Coded Allergies: insulin isophane (NPH) (Verified Allergy, Severe, NPH SPECIFIC RASH - ABLE TO TAKE HUMALOG, 12/13/17) latex (Verified Allergy, Severe, Rash, 12/13/17) tiotropium (Verified Allergy, Severe, DIFFICULTY URINATING, 12/13/17) ciprofloxacin (Verified Allergy, Intermediate, 12/13/17) sores in mouth prednisone (Verified Allergy, Intermediate, 12/13/17) heartburn/hiccups Uncoded Allergies: FLONASE (Allergy, Severe, 10/27/17) ... Past Medical History Diabetes Hypertension Chronic kidney disease BPH Joshua artery disease status post stent Cardiomyopathy COPD Asthma GERD Osteoporosis Osteoarthritis Past Surgical History Cardiac stent Hernia repair. Reported Medications Reported Meds & Active Scripts Active Ultram (Tramadol HCl) 50 Mg Tab 50 Mg PO Q6H PRN Lasix (Furosemide) 40 Mg Tab 40 Mg PO BID Spironolactone 25 Mg Tab 12.5 Mg PO DAILY Lisinopril 2.5 Mg Tab 2.5 Mg PO DAILY Oxygen tank (Oxygen) 1 Ea Tank 2 Liter SUZANNE.[employer] CONTINUOUS Oxygen Concentrator Portable Gaseous 2 L/min via Nasal Cannula Continuous For 99 months Proair Hfa 8.5 GM Inh (Albuterol Sulfate) 90 Mcg/Act Aer 2 Puff INH Q4-6H PRN 108 mcg/actuation Reported Albuterol Neb (Albuterol Sulfate) Unknown Strength Neb Unknown Dose NEB QID NEB PRN Cetirizine (Cetirizine HCl) 10 Mg Tab 10 Mg PO DAILY Lantus Inj (Insulin Glargine) 1,000 Unit/10 Ml Vial 14 Units SQ HS Breo Ellipta Inh (Fluticasone/Vilanterol) 200-25 Mcg/Act Inh 2 Puff INH DAILY Use daily at the same time. Omeprazole 20 Mg Tab 20 Mg PO BID Vitamin D3 (Cholecalciferol) 1,000 Unit Tab 1,000 Units PO DAILY Preservision Areds (Multiple Vitamins W/ Minerals) 1 Tab 1 Tab PO DAILY Dulcolax DR (Bisacodyl) 5 Mg Tabdr 5 Mg PO DAILY PRN Primidone 50 Mg Tab 250 Mg PO TID Nitrostat SL (Nitroglycerin) 0.4 Mg Subl 0.4 Mg SL DIRECTED PRN 1 tablet under the tongue as needed for chest pain. Repeat every 5 minutes for a total of 3 DOSES or call 911 if NO relief. Finasteride 5 Mg Tab 5 Mg PO HS Do not crush. Atorvastatin (Atorvastatin Calcium) 40 Mg Tab 40 Mg PO HS Plavix (Clopidogrel Bisulfate) 75 Mg Tab 75 Mg PO DAILY Active Ordered Medications Current Medications Medications (Trade) Dose Ordered Sig/Meli Route Start Time Stop Time Status Last Admin (NS Flush) 2 ml BID IV FLUSH 12/13/17 11:45 12/15/17 08:07 (NS Flush) 2 ml UNSCH PRN IV FLUSH 12/13/17 11:45 (Heparin Inj) 5,000 units Q8HR SQ 12/13/17 14:00 12/15/17 14:25 (Tylenol) 650 mg Q4H PRN PO 12/13/17 11:45 (Zofran Inj) 4 mg Q6H PRN IVP 12/13/17 11:45 (Reglan Inj) 5 mg Q6HR PRN IV PUSH 12/13/17 12:00 (Tylenol) 650 mg Q6H PRN PO 12/13/17 11:45 (Percocet 5-325 Mg) 1 tab Q6H PRN PO 12/13/17 11:45 (Percocet 10-325 Mg) 1 tab Q6H PRN PO 12/13/17 11:45 (Narcan Inj) 0.4 mg UNSCH PRN IV PUSH 12/13/17 11:45 (Susan-Colace) 1 tab BID PO 12/13/17 11:45 12/15/17 08:02 (Milk Of Magnesia Liq) 30 ml Q12HR PRN PO 12/13/17 12:00 (Senokot) 17.2 mg Q12HR PRN PO 12/13/17 11:45 (Dulcolax Supp) 10 mg DAILY PRN RECTAL 12/13/17 12:00 (Lactulose Liq) 30 ml DAILY PRN PO 12/13/17 11:45 (Lipitor) 40 mg HS PO 12/13/17 21:00 12/14/17 23:03 (Dulcolax Ec) 5 mg DAILY PRN PO 12/13/17 12:00 (ZyrTEC) 10 mg DAILY PO 12/14/17 09:00 12/15/17 08:03 (Vitamin D3) 1,000 units DAILY PO 12/14/17 09:00 12/15/17 08:03 (Plavix) 75 mg DAILY PO 12/14/17 09:00 12/15/17 08:02 (Proscar) 5 mg HS PO 12/13/17 21:00 12/14/17 22:52 (Breo Ellipta 200-25 Inh) 2 puff DAILY INH 12/14/17 09:00 12/15/17 08:06 (Levemir Inj) 14 units HS SQ 12/13/17 21:00 12/14/17 23:09 (Aldactone) 12.5 mg DAILY PO 12/14/17 09:00 Future Hold 12/15/17 08:04 (Ultram) 50 mg Q6HR PRN PO 12/13/17 12:00 (Prinivil) 2.5 mg DAILY PO 12/14/17 09:00 Future Hold 12/15/17 08:05 (Theragran M Tab) 1 tab DAILY PO 12/14/17 09:00 12/15/17 08:03 (Protonix) 40 mg DAILY PO 12/14/17 09:00 12/15/17 08:01 (D50w (Vial) Inj) 50 ml UNSCH PRN IV PUSH 2/26/18 12:00 (Glucagon Inj) 1 mg UNSCH PRN OTHER 12/13/17 12:00 (NovoLOG SUPPLEMENTAL SCALE) 1 ACHS SLIDING SCALE SQ 12/13/17 12:00 12/15/17 16:57 (Duoneb Neb) 1 ampule Q6HR WHILE AWAKE NEB NEB 12/13/17 20:00 12/15/17 14:14 (Duoneb Neb) 1 ampule Q2HR NEB PRN NEB 12/13/17 16:00 12/13/17 15:29 (Proair Hfa Inh) 2 puff BID PRN INH 12/13/17 14:30 (Tamiflu) 75 mg BID PO 12/13/17 21:00 12/15/17 08:03 (Zithromax) 500 mg DAILY PO 12/14/17 09:00 12/15/17 08:05 (Compazine) 5 mg Q6H PRN PO 12/13/17 19:00 (Mysoline) 250 mg TID PO 12/14/17 09:00 12/15/17 16:49 (Lasix) 40 mg BID@09,18 PO 12/14/17 18:00 Future Hold 12/15/17 08:02 (Deltasone) 20 mg BID PO 12/15/17 21:00 Sodium Chloride 1,000 ml @ 42 mls/hr [id number] IV 12/15/17 13:45 12/16/17 13:33 12/15/17 14:24 Family History Patient is mildly Social History Denies smoking or alcohol use Physical Exam Vital Signs Vital Signs Date Time Temp Pulse Resp B/P (MAP) Pulse Ox O2 Delivery O2 Flow Rate FiO2 12/15/17 12:00 98.1 84 20 110/64 (79) 97 12/15/17 08:00 98.0 88 22 100/66 (77) 98 12/15/17 07:38 95 Nasal Cannula 2.00 12/15/17 04:00 96.6 80 17 102/74 (83) 96 12/15/17 00:00 96.8 82 18 103/63 (76) 98 12/14/17 21:00 90 12/14/17 21:00 90 12/14/17 20:15 99 Nasal Cannula 2.00 12/14/17 20:00 97.5 93 17 105/78 (87) 96 Physical Exam GENERAL: Well-nourished, well-developed patient. SKIN: Warm and dry. HEAD: Normocephalic. EYES: No scleral icterus. No injection or drainage. NECK: Supple, trachea midline. No JVD or lymphadenopathy. CARDIOVASCULAR: Regular rate and rhythm 2/6 systolic murmurs, no gallops, or rubs. RESPIRATORY: Breath sounds diminished at bases. GASTROINTESTINAL: Abdomen soft, non-tender, nondistended. EXTREMITIES: No cyanosis, mild edema. NEUROLOGICAL: Awake, alert, and oriented x 3. Non-focal. Laboratory Laboratory Tests Test 12/15/17 06:00 Blood Urea Nitrogen 72 Creatinine 2.50 Random Glucose 272 Calcium Level 8.4 Sodium Level 133 Potassium Level 5.2 Chloride Level 98 Carbon Dioxide Level 25.5 Anion Gap 10 Estimat Glomerular Filtration Rate 25 Date/Time Source Procedure Growth Status 12/13/17 09:46 Blood Peripheral Aerobic Blood Culture - Preliminary NO GROWTH IN 2 DAYS Resulted 12/13/17 09:46 Blood Peripheral Anaerobic Blood Culture - Preliminary NO GROWTH IN 2 DAYS Resulted 12/13/17 09:46 Nasal Aspirate Influenza Types A,B Antigen (IVY) - Final Positive For Flu A Antigen Complete 12/13/17 11:26 Urine Random Urine Urine Culture - Final 10-50,000 CFU/ML MIXED PAULINA... Complete Result Diagram: 12/14/17 0645 12/15/17 0600 Imaging Last Impressions Renal Ultrasound 12/15/17 0000 Signed Impressions: Service Date/Time: Friday, December 15, 2017 11:35 - CONCLUSION: Small echogenic kidneys without hydronephrosis. Aric Zaragoza MD FACR Chest X-Ray 12/13/17 0940 Signed Impressions: Service Date/Time: Wednesday, December 13, 2017 10:15 - CONCLUSION: Underinflation with likely atelectasis at the lung bases. Otherwise, no acute finding is identified. Brady Carlson MD Assessment and Plan Problem List: (1) RILEY (acute kidney injury) ICD Codes: N17.9 - Acute kidney failure, unspecified Status: Acute Plan: Patient has cardiomyopathy and has underlying cardiorenal syndrome with severe valvular dysfunction congestive heart failure, and getting IV fluid at 42 cc an hour of normal saline Check urine sodium and creatinine Contributing to worsening renal failure Ultrasound showed echogenic small kidney He is passing urine Avoid nephrotoxic Avoid dye studies Follow BMP He inquired about dialysis and I told him that that is not needed but he is a poor candidate to consider dialysis and his condition remains Unstable with severe cardiomyopathy And it will be a challenge to do dialysis and has current state of health (2) Chronic kidney disease (CKD) ICD Codes: N18.9 - Chronic kidney disease, unspecified Status: Acute Plan: Getting worse (3) Diabetes mellitus ICD Codes: E11.9 - Type 2 diabetes mellitus without complications Status: Acute Plan: Monitor blood glucose (4) Congestive heart failure (CHF) ICD Codes: I50.9 - Heart failure, unspecified Status: Acute Plan: Severe valvular heart disease (5) Influenza A ICD Codes: J10.1 - Influenza due to other identified influenza virus with other respiratory manifestations Plan: On Tamiflu (6) COPD with exacerbation ICD Codes: J44.1 - Chronic obstructive pulmonary disease with (acute) exacerbation Plan: Continue to observe Problem Qualifiers (1) Chronic kidney disease (CKD): Qualified Codes: N18.4 - Chronic kidney disease, stage 4 (severe) (2) Congestive heart failure (CHF): Gale Correa MD Dec 15, 2017 17:24
[2017-12-15] MEDS: FINASTERIDE 5 MG TAB PO SCH (21:02)
[2017-12-15] MEDS: predniSONE 20 MG TAB PO SCH (21:02)
[2017-12-15] MEDS: INSULIN DETEMIR 100 UNITS/ML VIAL SQ SCH (21:03)
[2017-12-15] MEDS: ATORVASTATIN 40 MG TAB PO SCH (21:03)
[2017-12-16] VITALS (7 sets, daily range): BP systolic 94–124; BP diastolic 65–74; PULSE 66–88; RESP 20; TEMP 95.3–98.7; O2SAT 95–100
[2017-12-16 06:08] LABS: AUTOMATED NEUTROPHIL # 4.3 TH/MM3 (1.8-7.7); BASOPHIL % 0.5 % (0.0-2.0); EOSINOPHIL % 0.3 % (0.0-4.0); HEMATOCRIT 36.5 % (39.0-51.0); HEMOGLOBIN 12.1 GM/DL (13.0-17.0); LYMPH % 10.1 % (9.0-44.0); LYMPHOCYTE # 0.6 TH/MM3 (1.0-4.8); MEAN CELL VOLUME 91.3 FL (80.0-100.0); MEAN CORPUSCULAR HEMOGLOBIN 30.2 PG (27.0-34.0); MEAN CORPUSCULAR HGB CONC 33.1 % (32.0-36.0); MEAN PLATELET VOLUME 10.7 FL (7.0-11.0); MONO % 10.2 % (0.0-8.0); MONOCYTE # 0.6 TH/MM3 (0-0.9); NEUT % 78.9 % (16.0-70.0); PLATELET COUNT 111 TH/MM3 (150-450); RED CELL DISTRIBUTION WIDTH 17.4 % (11.6-17.2); WHITE BLOOD COUNT 5.5 TH/MM3 (4.0-11.0)
[2017-12-16] MEDS: HEPARIN SODIUM - SQ 10,000 UNITS/ML VIAL SQ SCH ×3 (06:08→21:10)
[2017-12-16 06:21] LABS: CALCIUM 8.1 MG/DL (8.5-10.1)
[2017-12-16 06:31] LABS: BICARBONATE 22.9 MEQ/L (21.0-32.0); CREATININE 2.4 MG/DL (0.60-1.30); MAGNESIUM 2.4 MG/DL (1.5-2.5)
[2017-12-16] MEDS: RESP: ALBUTEROL 2.5 MG/IPRATROPIUM 0.5 MG NEB (SCH) NEB ×3 (07:48→20:40)
[2017-12-16] MEDS: INSULIN ASPART SUPPLEMENTAL SCALE SQ SCH ×4 (08:00→21:11)
[2017-12-16] MEDS: predniSONE 20 MG TAB PO SCH ×2 (08:07→21:08)
[2017-12-16] MEDS: PANTOPRAZOLE SOD 40 MG DELAYED RELEASE TAB PO SCH (08:08)
[2017-12-16] MEDS: CLOPIDOGREL 75 MG TAB PO SCH (08:08)
[2017-12-16] MEDS: MULTIVITAMINS/MINERALS THERAPEUTIC TAB PO SCH (08:08)
[2017-12-16] MEDS: CETIRIZINE HCL 10 MG TAB PO SCH (08:08)
[2017-12-16] MEDS: AZITHROMYCIN 250 MG TAB PO SCH (08:08)
[2017-12-16] MEDS: FLUTICASONE 200 MCG/VILANTEROL 25 MCG INHALER INH SCH (08:08)
[2017-12-16] MEDS: OSELTAMIVIR PHOSPHATE 75 MG CAP PO SCH ×2 (08:08→21:09)
[2017-12-16] MEDS: SODIUM CHLORIDE 0.9% FLUSH 10 ML FLUSH IV FLUSH SCH ×2 (08:08→21:12)
[2017-12-16] MEDS: CHOLECALCIFEROL (VIT D3) 1000 UNIT TAB PO SCH (08:08)
[2017-12-16] MEDS: DOCUSATE SODIUM 50 MG/SENNA 8.6 MG TAB PO SCH ×2 (08:09→21:00)
[2017-12-16] MEDS: PRIMIDONE 250 MG TAB PO SCH ×3 (08:09→17:18)
[2017-12-16] MEDS: RESP: ALBUTEROL 2.5 MG/IPRATROPIUM 0.5 MG NEB (PRN) NEB (11:13)
--- NOTE | 2017-12-16 13:07 | HHI.PR ---
Subjective Remarks Patient seen and examined today for follow-up on CHF, shortness of breath, renal failure. Patient is improving. Patient was on IV fluids overnight with mild improvement of his kidney functions. Potassium has improved. Discussed with patient possible treatment plan if he continued to improve may be allowed to discharge tomorrow Objective Vitals Vital Signs Date Time Temp Pulse Resp B/P (MAP) Pulse Ox O2 Delivery O2 Flow Rate FiO2 12/16/17 08:00 66 12/16/17 08:00 97.2 88 20 101/74 (83) 99 12/16/17 07:48 98 Nasal Cannula 2.00 12/16/17 04:00 95.3 78 20 94/69 (77) 100 12/15/17 22:25 97 Nasal Cannula 2.00 12/15/17 20:00 95.6 81 22 98/76 (83) 99 12/15/17 19:15 76 12/15/17 16:00 98.1 80 18 112/66 (81) 97 I/O 12/15/17 12/15/17 12/15/17 12/16/17 12/16/17 12/16/17 07:00 15:00 23:00 07:00 15:00 23:00 Intake Total 120 ml 480 ml 240 ml Output Total 540 ml 1 ml Balance -420 ml 479 ml 240 ml Intake Oral 120 ml 480 ml 240 ml Output Urine Total 540 ml Stool Total 1 ml # Voids 1 4 4 # Bowel Movements 1 3 Result Diagram: 12/16/17 0540 12/16/17 0540 Objective Remarks GENERAL: Well-developed, well-nourished, in no acute distress. alert and orientated HEENT: Head is normocephalic without any lesions or masses noted. Facial features are symmetric. Eyesextraocular muscles are intact. Conjunctivae were clear. NECK: Supple without any masses. Trachea midline no deviation. No JVD, CARDIAC: Regular rhythm, regular rate. S1/S2 are heard. No murmurs gallops or rubs. LUNGS: Clear to auscultation bilaterally. No wheeze, rhonchi or rales. No use of accessory muscles on inspiration or expiration. ABDOMEN: Soft, nontender. Nondistended. Bowel sounds heard in all 4 quadrants. No organomegaly or masses. Negative rebound, negative guarding EXTREMITIES: No edema, pulses are equal bilaterally. No cyanosis or clubbing NEUROLOGY: Mood and affect appear appropriate. Cranial nerves II through XII grossly intact. Moving all extremities, speech is clear Urinary Catheter: No Vascular Central Line Catheter: No A/P Assessment and Plan Acute on chronic systolic heart failure, systolic BNP 1954. Chest x-ray reviewed showing underinflation with likely atelectasis at the lung bases. No acute findings. Echocardiogram reviewed from 2014 showing EF of 15%. Patient follows with Dr. Carrillo, cardiology. Follow-up echocardiogram indicates ejection fraction less than 20%. Aortic valve sclerosis, moderate to severe mitral valve regurgitation, PA peak pressure 48 EKG reviewed showing sinus rhythm with controlled heart rate, no ST changes or arrhythmias. We'll hold Lasix at this time secondary to acute kidney injury monitor intake and output closely. Fluid restriction. Acute renal failure superimposed on Chronic kidney disease stage III: Likely secondary to combination of diuresis, poor by mouth intake, Renal bladder ultrasound did not indicate any obstructive process. Does show small kidneys Hold lisinopril, spironolactone, Lasix Consulted acid retort operator for recommendations Continue monitor renal function avoid nephrotoxins Influenza A positive Continue Tamiflu Supportive treatment COPD with possible Exacerbation Continue O2 supplementation maintain O2 sats greater than 92% Solu-Medrol 40 mg every 6 hours, change to by mouth prednisone Duo nebs every 6 hours while awake and every 2 hours as needed Continue azithromycin Hyperkalemia, resolved Likely secondary to worsening chronic kidney disease, potassium replacement Continue to hold potassium supplementation, spironolactone, lisinopril at this time Monitor potassium level Abnormal UA: Likely contamination UA showing small amount of leukocyte esterase. Occasional white blood cell clumps. Squamous epithelial cells 0-2 Urine culture showing 10-50,000 mixed nohemy. We'll hold antibiotics at this time, weight culture for appropriate management Hypertension, hyperlipidemia, coronary artery disease status post stenting Home medications have been continued Type 2 diabetes mellitus, chronic: Accu-Cheks with sliding scale insulin Continued Levemir 14 units nightly DVT prophylaxis: SCDs. Subcutaneous Heparin. Discharge Planning Discharge planning, anticipate discharging home with home health care tomorrow if remains clinically stable Andrea Van Dec 16, 2017 13:07
[2017-12-16] MEDS: FINASTERIDE 5 MG TAB PO SCH (21:08)
[2017-12-16] MEDS: ATORVASTATIN 40 MG TAB PO SCH (21:09)
[2017-12-16] MEDS: INSULIN DETEMIR 100 UNITS/ML VIAL SQ SCH (21:11)
[2017-12-17] VITALS: BP 89/64; PULSE 79; RESP 20; TEMP 96; O2SAT 99
[2017-12-17 04:00] VITALS: BP 103/76; PULSE 61; RESP 20; TEMP 96; O2SAT 98
[2017-12-17] MEDS: HEPARIN SODIUM - SQ 10,000 UNITS/ML VIAL SQ SCH ×2 (05:30→14:00)
[2017-12-17 06:44] LABS: AUTOMATED NEUTROPHIL # 4.3 TH/MM3 (1.8-7.7); BASOPHIL % 0.6 % (0.0-2.0); EOSINOPHIL % 0.6 % (0.0-4.0); HEMATOCRIT 36.3 % (39.0-51.0); HEMOGLOBIN 11.8 GM/DL (13.0-17.0); LYMPH % 10.9 % (9.0-44.0); LYMPHOCYTE # 0.6 TH/MM3 (1.0-4.8); MEAN CELL VOLUME 91.3 FL (80.0-100.0); MEAN CORPUSCULAR HEMOGLOBIN 29.8 PG (27.0-34.0); MEAN CORPUSCULAR HGB CONC 32.7 % (32.0-36.0); MEAN PLATELET VOLUME 10.6 FL (7.0-11.0); MONO % 10.7 % (0.0-8.0); MONOCYTE # 0.6 TH/MM3 (0-0.9); NEUT % 77.2 % (16.0-70.0); PLATELET COUNT 119 TH/MM3 (150-450); RED BLOOD COUNT 3.97 MIL/MM3 (4.50-5.90); RED CELL DISTRIBUTION WIDTH 17.6 % (11.6-17.2); WHITE BLOOD COUNT 5.5 TH/MM3 (4.0-11.0)
[2017-12-17 06:48] LABS: BICARBONATE 24.7 MEQ/L (21.0-32.0); CALCIUM 7.9 MG/DL (8.5-10.1); MAGNESIUM 2.4 MG/DL (1.5-2.5)
[2017-12-17 06:52] LABS: CREATININE 2.3 MG/DL (0.60-1.30)
[2017-12-17 07:19] VITALS: O2SAT 95
[2017-12-17] MEDS: RESP: ALBUTEROL 2.5 MG/IPRATROPIUM 0.5 MG NEB (SCH) NEB ×2 (07:19→13:20)
[2017-12-17 08:00] VITALS: BP 102/61; PULSE 73; RESP 20; TEMP 96.5; O2SAT 100
[2017-12-17] MEDS: INSULIN ASPART SUPPLEMENTAL SCALE SQ SCH ×2 (08:00→12:00)
[2017-12-17 09:57] LABS: CREATININE, RANDOM URINE 46.7 MG/DL
[2017-12-17] MEDS: AZITHROMYCIN 250 MG TAB PO SCH (09:59)
[2017-12-17] MEDS: OSELTAMIVIR PHOSPHATE 75 MG CAP PO SCH (09:59)
[2017-12-17] MEDS: CLOPIDOGREL 75 MG TAB PO SCH (10:00)
[2017-12-17] MEDS: MULTIVITAMINS/MINERALS THERAPEUTIC TAB PO SCH (10:00)
[2017-12-17] MEDS: CHOLECALCIFEROL (VIT D3) 1000 UNIT TAB PO SCH (10:00)
[2017-12-17] MEDS: PANTOPRAZOLE SOD 40 MG DELAYED RELEASE TAB PO SCH (10:00)
[2017-12-17] MEDS: predniSONE 20 MG TAB PO SCH (10:00)
[2017-12-17] MEDS: CETIRIZINE HCL 10 MG TAB PO SCH (10:00)
[2017-12-17] MEDS: SODIUM CHLORIDE 0.9% FLUSH 10 ML FLUSH IV FLUSH SCH (10:01)
[2017-12-17] MEDS: FLUTICASONE 200 MCG/VILANTEROL 25 MCG INHALER INH SCH (11:23)
[2017-12-17] MEDS: PRIMIDONE 250 MG TAB PO SCH ×2 (11:27→13:00)
[2017-12-17] MEDS: DOCUSATE SODIUM 50 MG/SENNA 8.6 MG TAB PO SCH (11:27)
[2017-12-17 12:00] VITALS: BP 92/58; PULSE 80; RESP 20; TEMP 96.2; O2SAT 99
[2017-12-17] MEDS ORDERED: OSEL75 PO (13:30)
[2017-12-17] MEDS ORDERED: AZIT250T3 PO (13:30)
[2017-12-17] MEDS ORDERED: TRAM50 PO (13:30)
[2017-12-17] MEDS ORDERED: MEDR4PAK PO (13:30)
[2017-12-17] MEDS ORDERED: Albuterol-Ipratropium Neb NEB (13:30)
[2017-12-17] MEDS ORDERED: FURO1TAB60 PO (13:30)
--- NOTE | 2017-12-17 13:31 | HHI.DS ---
Discharge Summary Admission Date Dec 13, 2017 at 11:34 Discharge Date: Dec 17, 2017 Admitting Diagnosis Congestive heart failure (1) Influenza A ICD Code: J10.1 - Influenza due to other identified influenza virus with other respiratory manifestations (2) COPD with exacerbation ICD Code: J44.1 - Chronic obstructive pulmonary disease with (acute) exacerbation (3) Acute exacerbation of CHF (congestive heart failure) ICD Code: I50.9 - Heart failure, unspecified (4) RILEY (acute kidney injury) ICD Code: N17.9 - Acute kidney failure, unspecified Status: Acute Procedures ECHOCARDIOGRAM CONCLUSIONS Mild LV enlargement. The left ventricular systolic function is severely reduced with an estimated ejection fraction less than 20%. The left atrial size is mildly dilated. Aortic root 4.0 cm. [id number] mitral valve regurgitation. Aortic valve sclerosis is present. Mild aortic valve regurgitation. There is moderate tricuspid regurgitation. The estimated pulmonary arterial pressure is 48 mmHg. Brief History - From Admission This is a pleasant 82-year-old male patient with a known medical history of CAD and CA on Plavix, COPD, CHF, hypertension, hyperlipidemia, history of bilateral PE who presented to the ED with complaints of increasing dyspnea and bilateral lower extremity edema. Patient states that over the last couple weeks he is had increasing dyspnea with activities of daily living, states that no matter what he does he feels short of breath and weak. Over the past week he has developed increasing lower extremity edema. His scientific recruiter is Dr. Carrillo he was seen last week. He has recently decreased his Lasix to 40 mg p.o. daily from twice daily with intermittently taking an extra dose if needed. He states that he has been taking an extra dose for the past several days. Patient does have home O2, uses it intermittently for shortness of breath and at night. Patient denies any recent chest pain, fevers, chills, cough, abdominal pain, nausea, vomiting or diarrhea. He lives at home with his who assist with his daily activities. There is report of patient being hospitalized first week of October with CHF exacerbation. It should also be noted that patient fell at home, missing his walker and landed on his right side fracturing 3 ribs was evaluated by ER doctor with no further recommendations. PCP is Dr. Lee. CBC/BMP: 12/17/17 0603 12/17/17 0603 Significant Findings Laboratory Tests Test 12/15/17 06:00 12/16/17 05:40 12/17/17 05:27 12/17/17 06:03 Blood Urea Nitrogen 72 MG/DL (7-18) 86 MG/DL (7-18) 89 MG/DL (7-18) Creatinine 2.50 MG/DL (0.60-1.30) 2.40 MG/DL (0.60-1.30) 2.30 MG/DL (0.60-1.30) Random Glucose 272 MG/DL (74-106) 158 MG/DL (74-106) 149 MG/DL (74-106) Calcium Level 8.4 MG/DL (8.5-10.1) 8.1 MG/DL (8.5-10.1) 7.9 MG/DL (8.5-10.1) Sodium Level 133 MEQ/L (136-145) 134 MEQ/L (136-145) 135 MEQ/L (136-145) Potassium Level 5.2 MEQ/L (3.5-5.1) Estimat Glomerular Filtration Rate 25 ML/MIN (>89) 26 ML/MIN (>89) 27 ML/MIN (>89) Red Blood Count 4.00 MIL/MM3 (4.50-5.90) 3.97 MIL/MM3 (4.50-5.90) Hemoglobin 12.1 GM/DL (13.0-17.0) 11.8 GM/DL (13.0-17.0) Hematocrit 36.5 % (39.0-51.0) 36.3 % (39.0-51.0) Red Cell Distribution Width 17.4 % (11.6-17.2) 17.6 % (11.6-17.2) Platelet Count 111 TH/MM3 (150-450) 119 TH/MM3 (150-450) Neutrophils (%) (Auto) 78.9 % (16.0-70.0) 77.2 % (16.0-70.0) Monocytes (%) (Auto) 10.2 % (0.0-8.0) 10.7 % (0.0-8.0) Lymphocytes # (Auto) 0.6 TH/MM3 (1.0-4.8) 0.6 TH/MM3 (1.0-4.8) PE at Discharge GENERAL: Well-developed, well-nourished, in no acute distress. alert and orientated HEENT: Head is normocephalic without any lesions or masses noted. Facial features are symmetric. Eyesextraocular muscles are intact. Conjunctivae were clear. NECK: Supple without any masses. Trachea midline no deviation. No JVD, CARDIAC: Regular rhythm, regular rate. S1/S2 are heard. No murmurs gallops or rubs. LUNGS: Clear to auscultation bilaterally. No wheeze, rhonchi or rales. No use of accessory muscles on inspiration or expiration. ABDOMEN: Soft, nontender. Nondistended. Bowel sounds heard in all 4 quadrants. No organomegaly or masses. Negative rebound, negative guarding EXTREMITIES: No edema, pulses are equal bilaterally. No cyanosis or clubbing NEUROLOGY: Mood and affect appear appropriate. Cranial nerves II through XII grossly intact. Moving all extremities, speech is clear Hospital Course 82-year-old male who originally presented to hospital because of increasing dyspnea, lower extremity edema. Patient was undergoing management and outpatient setting by primary medical doctor. He was on Lasix 40 mg twice daily , however because of worsening renal functions his primary medical doctor notified him to go decrease his dosage down to Lasix 40 mg daily. Because of that he started developing worsening shortness of breath, lower extremity edema. Patient came to the hospital and was admitted. Patient was started on Lasix 40 mg IV twice daily with significant improvement of his edema and shortness of breath. However patient developed acute renal failure superimposed on chronic kidney disease stage IV. Patient underwent renal ultrasound which did not indicate any acute abnormality. Nephrotoxic medications were placed on hold. Lasix was held. Patient was given 1 L of IV fluid. Nephrology was consulted for recommendations. Further studies were requested by nephrology. Renal functions were monitored during his stay in the hospital and did improve after the IV fluid was given. Patient is rather deconditioned and initially the patient wanted to go home with home health care , however because of his significant deconditioning and weakness. It was discussed with patient and going to short term rehabilitation. They are both in agreement at this time. Patient's renal functions are improving. No longer stretches any shortness of breath or dyspnea. No longer needing O2 for oxygen supplementation. Patient clinically stable. Will plan discharge to long term facility once arrangements made. Pt Condition on Discharge: Stable Discharge Disposition: Discharge to SNF Discharge Time: > 30 minutes Discharge Instructions DIET: Follow Instructions for: Heart Healthy Diet Activities you can perform: Regular-No Restrictions Follow up Referrals: Nephrology - [address] Correa PCP Follow-up - 1 Week New Medications: Furosemide (Lasix) 40 Mg Tab 40 MG PO DAILY for CHF, #30 TAB 0 Refills Methylprednisolone Dosepak (Medrol Dosepak) 4 Mg Dspk 4 MG PO DIRECTED, #1 DSPK 0 Refills Per Pharmacist direction Azithromycin (Azithromycin) 250 Mg Tab 500 MG PO DAILY for Infection for 5 Days, #10 TAB Oseltamivir (Tamiflu) 75 Mg Cap 75 MG PO BID for Flu for 2 Days, #4 CAP [Albuterol-Ipratropium Neb] () 1 AMPULE NEBU 1 AMPULE NEB Q2HR NEB PRN for wheezing Continued Medications: Albuterol 8.5 GM Inh (Proair Hfa 8.5 GM Inh) 90 Mcg/Act Aer 2 PUFF INH Q4-6H PRN for SHORTNESS OF BREATH, #1 INHALER 0 Refills 108 mcg/actuation Atorvastatin (Atorvastatin) 40 Mg Tab 40 MG PO HS for Cholesterol Management, #30 TAB [address] (Dulcolax DR) 5 Mg Tabdr 5 MG PO DAILY PRN for CONSTIPATION, #30 TAB 0 Refills Cetirizine (Cetirizine) 10 Mg Tab 10 MG PO DAILY for Allergies, TAB 0 Refills Cholecalciferol (Vitamin D3) 1,000 Unit Tab 1000 UNITS PO DAILY for Nutritional Supplement, #1 BOTTLE 0 Refills Clopidogrel (Plavix) 75 Mg Tab 75 MG PO DAILY for Blood Clot Prevention, #30 TAB 0 Refills Finasteride (Finasteride) 5 Mg Tab 5 MG PO HS for Manage Prostate Problems, #30 TAB 0 Refills Do not crush. Fluticasone-Vilanterol Inh (Breo Ellipta Inh) 200-25 Mcg/Act Inh 2 PUFF INH DAILY, #1 INHALER 0 Refills Use daily at the same time. Insulin Glargine Inj (Lantus Inj) 1,000 Unit/10 Ml Vial 14 UNITS SQ HS for Blood Sugar Management, VIAL 0 Refills Lisinopril (Lisinopril) 2.5 Mg Tab 2.5 MG PO DAILY for heart failure, #30 TAB 0 Refills Multiple Vitamins W/ Minerals (Preservision Areds) 1 Tab 1 TAB PO DAILY for Nutritional Supplement, TAB 0 Refills Nitroglycerin SL (Nitrostat SL) 0.4 Mg Subl 0.4 MG SL DIRECTED PRN for CHEST PAIN, #100 TAB.SL 0 Refills 1 tablet under the tongue as needed for chest pain. Repeat every 5 minutes for a total of 3 DOSES or call 911 if NO relief. Omeprazole (Omeprazole) 20 Mg Tab 20 MG PO BID, #30 TAB 0 Refills Primidone (Primidone) 50 Mg Tab 250 MG PO TID for Control Seizures, #180 TAB 0 Refills Tramadol (Ultram) 50 Mg Tab 50 MG PO Q6H PRN for PAIN, #20 TAB 0 Refills (This prescription has been renewed ) Discontinued Medications: Albuterol Neb (Albuterol Neb) Unknown Strength Neb Unknown Dose NEB QID NEB PRN for SHORTNESS OF BREATH, #125 NEBULE 0 Refills Furosemide (Lasix) 40 Mg Tab 40 MG PO BID for heart failure, #60 TAB 0 Refills Spironolactone (Spironolactone) 25 Mg Tab 12.5 MG PO DAILY for heart failure, #30 TAB 0 Refills Andrea Van Dec 17, 2017 13:31
--- NOTE | 2017-12-17 15:32 | HHI.NPPN ---
Objective Data Data 12/17/17 12/18/17 19:00 07:00 Intake Total 960 ml Balance 960 ml Intake Oral 960 ml # Voids 4 # Bowel Movements 1 Vital Signs Date Time Temp Pulse Resp B/P (MAP) Pulse Ox O2 Delivery O2 Flow Rate FiO2 12/17/17 12:00 96.2 80 20 92/58 (69) 99 12/17/17 08:00 96.5 73 20 102/61 (75) 100 12/17/17 07:19 95 Nasal Cannula 2.00 12/17/17 04:00 96.0 61 20 103/76 (85) 98 12/17/17 00:00 96.0 79 20 89/64 (72) 99 12/16/17 20:40 98 Nasal Cannula 2.00 12/16/17 20:00 96.0 81 20 99/73 (82) 100 12/16/17 16:00 97.2 80 20 124/74 (91) 100 -: 12/17/17 0603 12/17/17 0603 Assessment/Plan Problem List: (1) RILEY (acute kidney injury) ICD Codes: N17.9 - Acute kidney failure, unspecified Status: Acute Plan: Patient has cardiomyopathy and has underlying cardiorenal syndrome with severe valvular dysfunction congestive heart failure, Cr 2.3 poor candidate for dialysis agree with dc plans EF 20% OR LESS (2) Chronic kidney disease (CKD) ICD Codes: N18.9 - Chronic kidney disease, unspecified Status: Acute Plan: Getting worse (3) Diabetes mellitus ICD Codes: E11.9 - Type 2 diabetes mellitus without complications Status: Acute Plan: Monitor blood glucose (4) Congestive heart failure (CHF) ICD Codes: I50.9 - Heart failure, unspecified Status: Acute Plan: Severe valvular heart disease (5) Influenza A ICD Codes: J10.1 - Influenza due to other identified influenza virus with other respiratory manifestations Plan: On Tamiflu (6) COPD with exacerbation ICD Codes: J44.1 - Chronic obstructive pulmonary disease with (acute) exacerbation Plan: Continue to observe Problem Qualifiers (1) Chronic kidney disease (CKD): Qualified Codes: N18.4 - Chronic kidney disease, stage 4 (severe) (2) Congestive heart failure (CHF): Gale Correa MD Dec 17, 2017 15:32
== END 2017-12-17 16:48 | DRG 291 ==
LOC: PHED 09:14 → PHEDA 11:34 → PH3A 12:25
PROVIDERS: ADMIT Hospitalist; ATTEND Hospitalist
DX: I13.0 Hypertensive heart and chronic kidney disease with heart failure and stage 1 through stage 4 chronic kidney disease, or unspecified chronic kidney disease (principal); I50.23 Acute on chronic systolic (congestive) heart failure; N18.4 Chronic kidney disease, stage 4 (severe); E11.22 Type 2 diabetes mellitus with diabetic chronic kidney disease; N17.9 Acute kidney failure, unspecified; J44.1 Chronic obstructive pulmonary disease with (acute) exacerbation; I42.9 Cardiomyopathy, unspecified; I08.3 Combined rheumatic disorders of mitral, aortic and tricuspid valves; J98.11 Atelectasis; J10.1 Influenza due to other identified influenza virus with other respiratory manifestations; I25.10 Atherosclerotic heart disease of native coronary artery without angina pectoris; E78.5 Hyperlipidemia, unspecified; N27.1 Small kidney, bilateral; E87.5 Hyperkalemia; I70.0 Atherosclerosis of aorta; N40.0 Benign prostatic hyperplasia without lower urinary tract symptoms; K21.9 Gastro-esophageal reflux disease without esophagitis; M81.0 Age-related osteoporosis without current pathological fracture; M19.90 Unspecified osteoarthritis, unspecified site; H91.90 Unspecified hearing loss, unspecified ear; I25.2 Old myocardial infarction; Z86.711 Personal history of pulmonary embolism; Z79.02 Long term (current) use of antithrombotics/antiplatelets; Z79.4 Long term (current) use of insulin; Z95.5 Presence of coronary angioplasty implant and graft
CPT/HCPCS: 71045; 76775; 80048; 80053; 81001; 82550; 82570; 82948; 83036; 83735; 83880; 84100; 84300; 84439; 84443; 84484; 85025; 85610; 85730; 87040; 87086; 87804; 93005; 93306; 94640; 94664; 99285; J1644; J1815; J1940; J2920; J2930; J7030; J7512; Q0164

== ENCOUNTER 2018-01-27 20:45 | Inpatient (IN) | payer MEDICARE, OTHER ==
[~2018-01-27] VITALS: Ht 177.8 cm; Wt 69.6 kg
[~2018-01-27 20:45] MED LIST changes: -ALBU0.63 NEB; +AZIT250T3 PO; +Albuterol-Ipratropium Neb NEB; +MEDR4PAK PO; -NEBUMIS6 INH; +OSEL75 PO; -PRED10PA PO; -SPIR25TA PO
[2018-01-27 21:18] VITALS: BP 110/73; PULSE 101; RESP 18; TEMP 99.1; O2SAT 100
[2018-01-27] MEDS ORDERED: SODIUM CHLORIDE 0.9% FLUSH 10 ML FLUSH IVF PRN (23:00)
--- NOTE | 2018-01-27 23:10 | PD ---
HPI Chief Complaint: Edema Time Seen by Provider: 22:46 Travel History International Travel<30 days: No Contact w/Intl Traveler<30days: No Traveled to known affect area: No History of Present Illness HPI Patient is an 82-year-old male with history of coronary artery disease, ME, COPD , CHF, diabetes, hypertension, hyperlipidemia, history of bilateral PE, return to the emergency room with complaints of bilateral lower extremity edema. Patient reports that he was recently admitted to the hospital for evaluation and treatment of acute CHF exacerbation with influenza. After his admission to the hospital, patient was sent to the rehab facility. Patient reports that his took him out of the rehab facility early as he is a diabetic and the rehab facility was not controlling his blood sugars properly. Patient reports that over the course of the past week, in addition to increasing lower extremity edema, patient has developed blisters to his feet bilaterally. Patient reports that the blister to the left lower extremity has pops, reports that he has 2 big blisters to his right foot. Patient with no fever chills, patient reports that he has increased pain to his lower extremities bilaterally PFSH Past Medical History Hx Anticoagulant Therapy: Yes (PLAVIX) Arthritis: Yes Asthma: Yes Autoimmune Disease: No Anxiety: No Depression: No Cancer: No Cardiac Catheterization: Yes Cardiovascular Problems: Yes (CHF, ME) High Cholesterol: Yes Chest Pain: No Congestive Heart Failure: Yes (PT SAYS 35% FUNCTION) COPD: Yes Coronary Artery Disease: Yes Diabetes: Yes (ON INSULIN) Diminished Hearing: Yes Deep Vein Thrombosis: Yes (BILAT PE) Endocrine: Yes Gastrointestinal Disorders: Yes GERD: Yes Genitourinary: Yes (ENLARGED PROSTATE) Hiatal Hernia: No Hypertension: Yes Immune Disorder: Yes (SHINGLES) Implanted Vascular Access Dvce: No Musculoskeletal: Yes Neurologic: Yes Psychiatric: No Reproductive: No Respiratory: Yes (COPD) Immunizations Current: Yes Sleep Apnea: No Thyroid Disease: Yes (HYPOTHYROID NOT CURRENTLY TAKING MEDS PER DRCarolin ) Ulcer: Yes (HX OF) Past Surgical History Abdominal Surgery: Yes (HUE INGUINAL HERNIA REPAIR) Coronary Stent: Yes (2006- X1 LAD, AND SEOT 2015/X3) Ear Surgery: No Endocrine Surgery: No Eye Surgery: No Genitourinary Surgery: No Gynecologic Surgery: No Oral Surgery: No Thoracic Surgery: Yes (RT LUNG BIOPSY ) Other Surgery: Yes (HUE HERNIA-groin, right foot) Social History Alcohol Use: No Tobacco Use: No Substance Use: No Allergies-Medications (Allergen,Severity, Reaction): Coded Allergies: insulin isophane (NPH) (Verified Allergy, Severe, NPH SPECIFIC RASH - ABLE TO TAKE HUMALOG, 01/27/18) latex (Verified Allergy, Severe, Rash, 01/27/18) tiotropium (Verified Allergy, Severe, DIFFICULTY URINATING, 01/27/18) ciprofloxacin (Verified Allergy, Intermediate, 01/27/18) sores in mouth prednisone (Verified Allergy, Intermediate, 01/27/18) heartburn/hiccups Uncoded Allergies: FLONASE (Allergy, Severe, 10/27/17) ... Reported Meds & Prescriptions Reported Meds & Active Scripts Active Lasix (Furosemide) 40 Mg Tab 40 Mg PO DAILY [Albuterol-Ipratropium Neb] 1 AMPULE Nebu 1 Ampule NEB Q2HR NEB PRN Oxygen tank (Oxygen) 1 Ea Tank 2 Liter SUZANNE.CANULA CONTINUOUS Oxygen Concentrator Portable Gaseous 2 L/min via Nasal Cannula Continuous For 99 months Proair Hfa 8.5 GM Inh (Albuterol Sulfate) 90 Mcg/Act Aer 2 Puff INH Q4-6H PRN 108 mcg/actuation Reported Cetirizine (Cetirizine HCl) 10 Mg Tab 10 Mg PO DAILY Lantus Inj (Insulin Glargine) 1,000 Unit/10 Ml Vial 14 Units SQ HS Breo Ellipta Inh (Fluticasone/Vilanterol) 200-25 Mcg/Act Inh 2 Puff INH DAILY Use daily at the same time. Omeprazole 20 Mg Tab 20 Mg PO BID Vitamin D3 (Cholecalciferol) 1,000 Unit Tab 1,000 Units PO DAILY Preservision Areds (Multiple Vitamins W/ Minerals) 1 Tab 1 Tab PO DAILY Dulcolax DR (Bisacodyl) 5 Mg Tabdr 5 Mg PO DAILY PRN Primidone 50 Mg Tab 250 Mg PO TID Nitrostat SL (Nitroglycerin) 0.4 Mg Subl 0.4 Mg SL DIRECTED PRN 1 tablet under the tongue as needed for chest pain. Repeat every 5 minutes for a total of 3 DOSES or call 911 if NO relief. Finasteride 5 Mg Tab 5 Mg PO HS Do not crush. Atorvastatin (Atorvastatin Calcium) 40 Mg Tab 40 Mg PO HS Plavix (Clopidogrel Bisulfate) 75 Mg Tab 75 Mg PO DAILY Review of Systems General / Constitutional: No: Fever Eyes: No: Visual changes HENT: No: Headaches Cardiovascular: No: Chest Pain or Discomfort Respiratory: No: Shortness of Breath Gastrointestinal: No: Abdominal Pain Genitourinary: No: Dysuria Musculoskeletal: Positive: Edema, No: Pain Skin: No Rash Neurologic: No: Weakness Psychiatric: No: Depression Endocrine: No: Polydipsia Hematologic/Lymphatic: No: Easy Bruising Physical Exam Narrative GENERAL:Mild distress SKIN: Focused skin assessment warm/dry. HEAD: Atraumatic. Normocephalic. EYES: Pupils equal and round. No scleral icterus. No injection or drainage. ENT: No nasal bleeding or discharge. Mucous membranes pink and moist. NECK: Trachea midline. No JVD. CARDIOVASCULAR: Regular rate and rhythm. No murmur appreciated. RESPIRATORY: No accessory muscle use. Clear to auscultation. Breath sounds equal bilaterally. GASTROINTESTINAL: Abdomen soft, non-tender, nondistended. Hepatic and splenic margins not palpable. MUSCULOSKELETAL: No obvious deformities. No clubbing. No cyanosis. +3 pedal edema, patient with raw open skin to left anterior foot, patient with blisters to right anterior foot. NEUROLOGICAL: Awake and alert. No obvious cranial nerve deficits. Motor grossly within normal limits. Normal speech. PSYCHIATRIC: Appropriate mood and affect; insight and judgment normal. Data Data Last Documented VS Vital Signs Date Time Temp Pulse Resp B/P (MAP) Pulse Ox O2 Delivery O2 Flow Rate FiO2 01/27/18 23:45 14 01/27/18 23:43 99 103/79 (87) 99 Room Air 01/27/18 21:18 99.1 Orders Orders Complete Blood Count With Diff (01/27/18 22:59) Comprehensive Metabolic Panel (01/27/18 22:59) B-Type Natriuretic Peptide (01/27/18 22:59) Act Partial Throm Time (Ptt) (01/27/18 22:59) Prothrombin Time / Inr (Pt) (01/27/18 22:59) Magnesium (Mg) (01/27/18 22:59) Iv Access Insert/Monitor (01/27/18 22:59) Ecg Monitoring (01/27/18 22:59) Oximetry (01/27/18 22:59) Chest, Single Ap (01/27/18 22:59) Sodium Chloride 0.9% Flush (Ns Flush) (01/27/18 23:00) Us Leg Venous Doppler Bilat (01/27/18 ) Morphine Inj (Morphine Inj) (01/27/18 23:30) Insulin Human Regular Inj (Novolin R Inj (01/27/18 23:30) Furosemide Inj (Lasix Inj) (01/28/18 00:00) Bedside Glucose SIMONA.CSUGAR (01/28/18 00:41) Blood Glucose Goal (Criteria) (01/28/18 00:41) Hypoglycemia 70 Mg/Dl Or < (01/28/18 00:41) Notify Dr: Other (01/28/18 00:41) Dextrose 50% In Ursula (Vial) Inj (D50w (Vi (01/28/18 00:45) Glucagon Inj (Glucagon Inj) (01/28/18 00:45) Insulin Aspart Supplemtl Scale (Novolog (01/28/18 08:00) Furosemide Inj (Lasix Inj) (01/28/18 09:00) Place In Observation (01/28/18 ) Vital Signs (Adult) Q4H (01/28/18 00:41) Activity Oob With Assistance (01/28/18 00:41) Diet Heart Healthy (01/28/18 Breakfast) Sodium Chloride 0.9% Flush (Ns Flush) (01/28/18 00:45) Sodium Chloride 0.9% Flush (Ns Flush) (01/28/18 09:00) Acetaminophen (Tylenol) (01/28/18 00:45) Ondansetron Inj (Zofran Inj) (01/28/18 00:45) Basic Metabolic Panel (Bmp) (01/29/18 06:00) Complete Blood Count With Diff (01/29/18 06:00) Naloxone Inj (Narcan Inj) (01/28/18 00:45) Docusate Sodium-Senna (Susan-Colace) (01/28/18 09:00) Magnesium Hydroxide Liq (Milk Of Magnesi (01/28/18 00:45) Sennosides (Senokot) (01/28/18 00:45) Bisacodyl Supp (Dulcolax Supp) (01/28/18 00:45) Lactulose Liq (Lactulose Liq) (01/28/18 00:45) Admit Order (Ed Use Only) (01/28/18 00:44) Labs Laboratory Tests Test 01/27/18 23:21 White Blood Count 6.3 TH/MM3 Red Blood Count 4.06 MIL/MM3 Hemoglobin 12.1 GM/DL Hematocrit 37.2 % Mean Corpuscular Volume 91.8 FL Mean Corpuscular Hemoglobin 29.9 PG Mean Corpuscular Hemoglobin Concent 32.6 % Red Cell Distribution Width 18.8 % Platelet Count 110 TH/MM3 Mean Platelet Volume 10.9 FL Neutrophils (%) (Auto) 77.7 % Lymphocytes (%) (Auto) 9.3 % Monocytes (%) (Auto) 8.8 % Eosinophils (%) (Auto) 2.1 % Basophils (%) (Auto) 2.1 % Neutrophils # (Auto) 4.9 TH/MM3 Lymphocytes # (Auto) 0.6 TH/MM3 Monocytes # (Auto) 0.6 TH/MM3 Eosinophils # (Auto) 0.1 TH/MM3 Basophils # (Auto) 0.1 TH/MM3 CBC Comment DIFF FINAL Differential Comment Prothrombin Time 13.4 SEC Prothromb Time International Ratio 1.3 RATIO Activated Partial Thromboplast Time 28.4 SEC Blood Urea Nitrogen 53 MG/DL Creatinine 2.00 MG/DL Random Glucose 305 MG/DL Total Protein 7.8 GM/DL Albumin 3.2 GM/DL Calcium Level 8.8 MG/DL Magnesium Level 1.9 MG/DL Alkaline Phosphatase 293 U/L Aspartate Amino Transf (AST/SGOT) 55 U/L Alanine Aminotransferase (ALT/SGPT) 56 U/L Total Bilirubin 0.8 MG/DL Sodium Level 138 MEQ/L Potassium Level 4.6 MEQ/L Chloride Level 101 MEQ/L Carbon Dioxide Level 31.4 MEQ/L Anion Gap 6 MEQ/L Estimat Glomerular Filtration Rate 32 ML/MIN B-Type Natriuretic Peptide 3831 PG/ML MDM Medical Decision Making Medical Screen Exam Complete: Yes Emergency Medical Condition: Yes Medical Record Reviewed: Yes Interpretation(s) Vital Signs Date Time Temp Pulse Resp B/P (MAP) Pulse Ox O2 Delivery O2 Flow Rate FiO2 01/27/18 21:18 99.1 101 18 110/73 (85) 100 Differential Diagnosis DVT, CHF exacerbation, electrolyte abnormality Narrative Course During the course of the patients emergency department visit, the patients history, examination, and differential diagnosis were reviewed with the patient. The patient was placed on a color television console monitor with oximetry and frequent blood pressure monitoring. The patient had an IV access obtained and blood work sent for analysis. The patient was initially provided IV lasix and morphine for pain. Laboratory Tests Test 01/27/18 23:21 White Blood Count 6.3 TH/MM3 (4.0-11.0) Red Blood Count 4.06 MIL/MM3 (4.50-5.90) Hemoglobin 12.1 GM/DL (13.0-17.0) Hematocrit 37.2 % (39.0-51.0) Mean Corpuscular Volume 91.8 FL (80.0-100.0) Mean Corpuscular Hemoglobin 29.9 PG (27.0-34.0) Mean Corpuscular Hemoglobin Concent 32.6 % (32.0-36.0) Red Cell Distribution Width 18.8 % (11.6-17.2) Platelet Count 110 TH/MM3 (150-450) Mean Platelet Volume 10.9 FL (7.0-11.0) Neutrophils (%) (Auto) 77.7 % (16.0-70.0) Lymphocytes (%) (Auto) 9.3 % (9.0-44.0) Monocytes (%) (Auto) 8.8 % (0.0-8.0) Eosinophils (%) (Auto) 2.1 % (0.0-4.0) Basophils (%) (Auto) 2.1 % (0.0-2.0) Neutrophils # (Auto) 4.9 TH/MM3 (1.8-7.7) Lymphocytes # (Auto) 0.6 TH/MM3 (1.0-4.8) Monocytes # (Auto) 0.6 TH/MM3 (0-0.9) Eosinophils # (Auto) 0.1 TH/MM3 (0-0.4) Basophils # (Auto) 0.1 TH/MM3 (0-0.2) CBC Comment DIFF FINAL Differential Comment Prothrombin Time 13.4 SEC (9.8-11.6) Prothromb Time International Ratio 1.3 RATIO Activated Partial Thromboplast Time 28.4 SEC (24.3-30.1) Blood Urea Nitrogen 53 MG/DL (7-18) Creatinine 2.00 MG/DL (0.60-1.30) Random Glucose 305 MG/DL (74-106) Total Protein 7.8 GM/DL (6.4-8.2) Albumin 3.2 GM/DL (3.4-5.0) Calcium Level 8.8 MG/DL (8.5-10.1) Magnesium Level 1.9 MG/DL (1.5-2.5) Alkaline Phosphatase 293 U/L (45-117) Aspartate Amino Transf (AST/SGOT) 55 U/L (15-37) Alanine Aminotransferase (ALT/SGPT) 56 U/L (12-78) Total Bilirubin 0.8 MG/DL (0.2-1.0) Sodium Level 138 MEQ/L (136-145) Potassium Level 4.6 MEQ/L (3.5-5.1) Chloride Level 101 MEQ/L (98-107) Carbon Dioxide Level 31.4 MEQ/L (21.0-32.0) Anion Gap 6 MEQ/L (5-15) Estimat Glomerular Filtration Rate 32 ML/MIN (>89) B-Type Natriuretic Peptide 3831 PG/ML (0-100) Radiology studies were reviewed and remarkable for Last Impressions Chest X-Ray 01/27/18 [id number] Signed Impressions: Service Date/Time: January 23:06 - CONCLUSION: Stable abnormal chest appearance Brady Chirinos MD Patient's BNP is 3831, patient was given 40mg of IV lasix, patient will require admission to hospital reviewed case with Dr. Allen who accepts pt to service Diagnosis Primary Impression: Acute exacerbation of CHF (congestive heart failure) Qualified Codes: I50.9 - Heart failure, unspecified Additional Impression: Edema Admitting Information Admitting Physician Requests: Observation Rylee Barnes DO Jan 27, 2018 23:10
--- NOTE | 2018-01-27 23:21 | RADRPT ---
EXAM DATE/TIME: 01/27/2018 23:06 [facility] COMPARISON: CHEST SINGLE AP, December 13, 2017, 10:15. INDICATIONS : Shortness of breath for 1 week MEDICAL HISTORY : Emphysema. Chronic obstructive pulmonary disease. Hypercholesterolemia.Hypertension, Asthma, Myocardi al infarction, Coronary artery disease, CHF. Hypothyroid SURGICAL HISTORY : Cardiac cath, Right lung biopsy, Coronary artery stent ENCOUNTER: Initial ACUITY: 1 week PAIN SCORE: 0/10 LOCATION: Bilateral chest FINDINGS: Stable slight flattening of the right diaphragm and blunting of the right costophrenic angle which ma y indicate minimal pleural fluid. Borderline heart size with mild vascular congestion and interstitia l prominence. The findings are grossly unchanged. CONCLUSION: Stable abnormal chest appearance Brady Chirinos MD on January 27, 2018 at 23:17 Board Certified Radiologist. This report was verified electronically.
[2018-01-27 23:25] VITALS: RESP 16; O2SAT 96
[2018-01-27 23:25] LABS: AUTOMATED NEUTROPHIL # 4.9 TH/MM3 (1.8-7.7); BASOPHIL # 0.1 TH/MM3 (0-0.2); BASOPHIL % 2.1 % (0.0-2.0); EOSINOPHIL # 0.1 TH/MM3 (0-0.4); EOSINOPHIL % 2.1 % (0.0-4.0); HEMATOCRIT 37.2 % (39.0-51.0); HEMOGLOBIN 12.1 GM/DL (13.0-17.0); LYMPH % 9.3 % (9.0-44.0); LYMPHOCYTE # 0.6 TH/MM3 (1.0-4.8); MEAN CELL VOLUME 91.8 FL (80.0-100.0); MEAN CORPUSCULAR HEMOGLOBIN 29.9 PG (27.0-34.0); MEAN CORPUSCULAR HGB CONC 32.6 % (32.0-36.0); MEAN PLATELET VOLUME 10.9 FL (7.0-11.0); MONO % 8.8 % (0.0-8.0); MONOCYTE # 0.6 TH/MM3 (0-0.9); NEUT % 77.7 % (16.0-70.0); PLATELET COUNT 110 TH/MM3 (150-450); RED BLOOD COUNT 4.06 MIL/MM3 (4.50-5.90); RED CELL DISTRIBUTION WIDTH 18.8 % (11.6-17.2); WHITE BLOOD COUNT 6.3 TH/MM3 (4.0-11.0)
[2018-01-27] MEDS ORDERED: INSULIN HUMAN REGULAR 1,000 UNITS/10 ML VIAL SQ ONE (23:30)
[2018-01-27] MEDS ORDERED: MORPHINE SULFATE 2 MG/ML SYRINGE IV PUSH ONE (23:30)
[2018-01-27 23:31] LABS: CHLORIDE 101 MEQ/L (98-107); SODIUM (NA) 138 MEQ/L (136-145)
[2018-01-27 23:34] LABS: ALBUMIN 3.2 GM/DL (3.4-5.0); BICARBONATE 31.4 MEQ/L (21.0-32.0); CALCIUM 8.8 MG/DL (8.5-10.1); GLUCOSE,RANDOM 305 MG/DL (74-106); MAGNESIUM 1.9 MG/DL (1.5-2.5)
[2018-01-27 23:35] LABS: BLOOD UREA NITROGEN 53 MG/DL (7-18)
[2018-01-27 23:36] LABS: INTERNATIONAL NORMALIZED RATIO 1.3 RATIO; PROTHROMBIN TIME - PATIENT 13.4 SEC (9.8-11.6)
[2018-01-27 23:37] LABS: ALT (GPT) 56 U/L (12-78); AST (GOT) 55 U/L (15-37)
[2018-01-27 23:38] LABS: GLOMERULAR FILTRATION RATE 32 ML/MIN (>89)
[2018-01-27 23:39] LABS: TOTAL BILIRUBIN ADULT 0.8 MG/DL (0.2-1.0); TOTAL PROTEIN 7.8 GM/DL (6.4-8.2)
[2018-01-27 23:40] LABS: ALKALINE PHOSPHATASE 293 U/L (45-117)
[2018-01-27 23:43] VITALS: BP 103/79; PULSE 99; RESP 16; O2SAT 99
[2018-01-28] MEDS ORDERED: FUROSEMIDE 40 MG/4 ML VIAL IV PUSH ONE
[2018-01-28] MEDS ORDERED: LACTULOSE SYRUP 20 GM/30 ML CUP PO PRN (00:45)
[2018-01-28] MEDS ORDERED: ACETAMINOPHEN 325 MG TAB PO PRN (00:45)
[2018-01-28] MEDS ORDERED: DEXTROSE 50% IN WATER 50 ML VIAL(D50) IV PUSH PRN ×2 (00:45→11:15)
[2018-01-28] MEDS ORDERED: SODIUM CHLORIDE 0.9% FLUSH 10 ML FLUSH IV FLUSH PRN (00:45)
[2018-01-28] MEDS ORDERED: BISACODYL 10 MG SUPP RECTAL PRN (00:45)
[2018-01-28] MEDS ORDERED: SENNOSIDES 8.6 MG TAB PO PRN (00:45)
[2018-01-28] MEDS ORDERED: MAGNESIUM HYDROXIDE SUSP 30 ML CUP PO PRN (00:45)
[2018-01-28] MEDS ORDERED: NALOXONE HCL 0.4 MG/ML AMP IV PUSH PRN (00:45)
[2018-01-28] MEDS ORDERED: ONDANSETRON HCL 4 MG/2 ML VIAL IVP PRN (00:45)
[2018-01-28] MEDS ORDERED: GLUCAGON 1 MG/ML VIAL OTHER PRN ×2 (00:45→11:15)
[2018-01-28 01:10] VITALS: BP 110/79; PULSE 105; RESP 16; O2SAT 96
--- NOTE | 2018-01-28 01:31 | RADRPT ---
EXAM DATE/TIME: 01/28/2018 00:21 [facility] COMPARISON: US LEG BILATERAL VENOUS DOPPLER, September 15, 2015, 15:04. INDICATIONS : Bilateral leg edema. MEDICAL HISTORY : Hypothyroidism. Myocardial infarction. Hypercholesterolemia. Coronary artery disease. CHF. HTN. DVT. Pulmonary embolisms. COPD. Emphysema. Asthma. Dyspena. Ulcer. Enlarged prostate. Shingles. Arthritis. Osteoporosis. Diabetes. Anticoagulant therapy, Plavix. SURGICAL HISTORY : Coronary artery stent. Cardiac cath. Right lung biopsy. Bilateral inguinal hernia repair. Bilateral r otator cuff surgery. Right foot surgery. ENCOUNTER: Initial ACUITY: 1 day PAIN SCORE: 6/10 LOCATION: Bilateral leg. TECHNIQUE: Venous ultrasound of the left and right leg was performed from the inguinal ligament to the proximal calf. Real-time, color Doppler and spectral tracing, compression and augmentation techniques were us ed. FINDINGS: RIGHT LEG: There is normal compressibility of the deep venous system from the inguinal region to the proximal ca lf. No echogenic clot is seen in the lumen of the common femoral, femoral, popliteal, and posterior tibial veins. There is a normal response of the venous system to proximal and distal augmentation an d respiration. LEFT LEG: There is incompletely occlusive thrombus present portions of the left superficial femoral vein. Occlu sive clot is seen in the posterior tibial vein in the calf. CONCLUSION: Study is positive for left leg DVT Brady Chirinos MD on January 28, 2018 at 1:26 Board Certified Radiologist. This report was verified electronically.
[2018-01-28 02:30] VITALS: BP 114/74; PULSE 105; RESP 20; TEMP 97.3; O2SAT 100
[2018-01-28] MEDS ORDERED: HEPARIN SODIUM - IV 10,000 UNITS/10 ML VIAL IV PUSH ONE (02:30)
[2018-01-28 03:13] LABS: HEMOGLOBIN 12.4 GM/DL (13.0-17.0); MEAN CELL VOLUME 92.1 FL (80.0-100.0); MEAN CORPUSCULAR HGB CONC 32.5 % (32.0-36.0); MEAN PLATELET VOLUME 10.1 FL (7.0-11.0); PLATELET COUNT 101 TH/MM3 (150-450); RED BLOOD COUNT 4.13 MIL/MM3 (4.50-5.90); RED CELL DISTRIBUTION WIDTH 18.5 % (11.6-17.2); WHITE BLOOD COUNT 5.5 TH/MM3 (4.0-11.0)
[2018-01-28] MEDS: HEPARIN-D5W 25,000 U/250 ML 250 ML IV PRN (04:17)
[2018-01-28] MEDS: RESP: ALBUTEROL 2.5 MG/IPRATROPIUM 0.5 MG NEB (PRN) NEB ×4 (04:31→20:45)
[2018-01-28 08:00] VITALS: BP_SYST 113; BP_SYST 159; BP_DIAS 65; BP_DIAS 74; PULSE 102; PULSE 103; RESP 18; TEMP 97.7; TEMP 98.2; O2SAT 94; O2SAT 98
[2018-01-28] MEDS ORDERED: INSULIN ASPART SUPPLEMENTAL SCALE SQ SCH (08:00)
[2018-01-28] MEDS: SODIUM CHLORIDE 0.9% FLUSH 10 ML FLUSH IV FLUSH SCH ×2 (09:00→21:20)
[2018-01-28] MEDS: DOCUSATE SODIUM 50 MG/SENNA 8.6 MG TAB PO SCH ×2 (09:49→21:19)
[2018-01-28] MEDS: FUROSEMIDE 40 MG/4 ML VIAL IV PUSH SCH ×2 (09:50→17:09)
--- NOTE | 2018-01-28 11:29 | HHI.HP ---
[facility] Jigna Espino MD Admission Diagnosis CHF exacerbation Diagnoses: Travel History International Travel<30 Days: No Contact w/Intl Traveler <30 Da: No Traveled to Known Affected Are: No History of Present Illness Mr. Mccurdy is an 82-year-old male. He came in secondary to bilateral lower extremity swelling and pain. CHF exacerbation is evident with pulmonary edema and lower extremity edema. He is also found to have a left lower extremity DVT which may have been contributory to his pain. At baseline he has CHF. He is on Lasix at baseline. No complaints of chest pain during this exacerbation. No other complaints this morning. Review of Systems Constitutional: DENIES: Fatigue, Fever, Chills Eyes: DENIES: Diplopia, Eye inflammation, Eye pain Ears, nose, mouth, throat: DENIES: Tinnitus, Hearing loss, Vertigo Respiratory: DENIES: Cough, Wheezing, Shortness of breath Cardiovascular: DENIES: Chest pain, Palpitations, Syncope Gastrointestinal: DENIES: Abdominal pain, Black stools, Bloody stools Musculoskeletal: COMPLAINS OF: Joint pain, Stiffness, Joint Swelling Integumentary: DENIES: Abnormal pigmentation, Nail changes, Pruritus, Rash Hematologic/lymphatic: DENIES: Bruising, Lymphadenopathy Immunologic/allergic: DENIES: Eczema, Urticaria Neurologic: DENIES: Abnormal gait, Headache, Paresthesias Psychiatric: DENIES: Anxiety, Confusion, Hallucinations Past Family Social History Past Medical History History of CHF asthma arthritis hyperlipidemia COPD CAD history of CT diabetes GERD history of bilateral PE enlarged prostate hypertension Past Surgical History History of bilateral inguinal hernia repair Cardiac stent placement Right lung biopsy Reported Medications Reported Meds & Active Scripts Active Lasix (Furosemide) 40 Mg Tab 40 Mg PO DAILY [Albuterol-Ipratropium Neb] 1 AMPULE Nebu 1 Ampule NEB Q2HR NEB PRN Oxygen tank (Oxygen) 1 Ea Tank 2 Liter SUZANNE.CANULA CONTINUOUS Oxygen Concentrator Portable Gaseous 2 L/min via Nasal Cannula Continuous For 99 months Proair Hfa 8.5 GM Inh (Albuterol Sulfate) 90 Mcg/Act Aer 2 Puff INH Q4-6H PRN 108 mcg/actuation Reported Cetirizine (Cetirizine HCl) 10 Mg Tab 10 Mg PO DAILY Lantus Inj (Insulin Glargine) 1,000 Unit/10 Ml Vial 14 Units SQ HS Breo Ellipta Inh (Fluticasone/Vilanterol) 200-25 Mcg/Act Inh 2 Puff INH DAILY Use daily at the same time. Omeprazole 20 Mg Tab 20 Mg PO BID Vitamin D3 (Cholecalciferol) 1,000 Unit Tab 1,000 Units PO DAILY Preservision Areds (Multiple Vitamins W/ Minerals) 1 Tab 1 Tab PO DAILY Dulcolax DR (Bisacodyl) 5 Mg Tabdr 5 Mg PO DAILY PRN Primidone 50 Mg Tab 250 Mg PO TID Nitrostat SL (Nitroglycerin) 0.4 Mg Subl 0.4 Mg SL DIRECTED PRN 1 tablet under the tongue as needed for chest pain. Repeat every 5 minutes for a total of 3 DOSES or call 911 if NO relief. Finasteride 5 Mg Tab 5 Mg PO HS Do not crush. Atorvastatin (Atorvastatin Calcium) 40 Mg Tab 40 Mg PO HS Plavix (Clopidogrel Bisulfate) 75 Mg Tab 75 Mg PO DAILY Allergies: Coded Allergies: insulin isophane (NPH) (Verified Allergy, Severe, NPH SPECIFIC RASH - ABLE TO TAKE HUMALOG, 01/27/18) latex (Verified Allergy, Severe, Rash, 01/27/18) tiotropium (Verified Allergy, Severe, DIFFICULTY URINATING, 01/27/18) ciprofloxacin (Verified Allergy, Intermediate, 01/27/18) sores in mouth prednisone (Verified Allergy, Intermediate, 01/27/18) heartburn/hiccups Uncoded Allergies: FLONASE (Allergy, Severe, 10/27/17) ... Active Ordered Medications Administered Medications Medications (Trade) Dose Ordered Sig/Meli Route PRN Reason Start Time Stop Time Status Last Admin Dose Admin Furosemide (Lasix Inj) 40 mg BID@,18 IV PUSH 01/28/18 09:00 01/28/18 09:50 Senna/Docusate Sodium (Susan-Colace) 1 tab BID PO 01/28/18 09:00 01/28/18 09:49 Heparin Sodium/ Dextrose 250 ml @ 12 mls/hr TITRATE PRN IV Coagulation Management 01/28/18 02:30 01/28/18 04:17 Albuterol/ Ipratropium (Duoneb Neb) 1 ampule Q4HR NEB PRN NEB sob, wheeze 01/28/18 04:15 01/28/18 07:29 Family History Diabetes mellitus Social History No history of smoking No history of alcohol abuse No history of illicit drug abuse Physical Exam Vital Signs Vital Signs Date Time Temp Pulse Resp B/P (MAP) Pulse Ox O2 Delivery O2 Flow Rate FiO2 01/28/18 08:00 98.2 103 18 113/74 (87) 94 01/28/18 02:30 97.3 105 20 114/74 (87) 100 01/28/18 01:10 105 16 110/79 (89) 96 Room Air 01/27/18 23:45 14 01/27/18 23:43 99 16 103/79 (87) 99 Room Air 01/27/18 23:25 16 96 Room Air 01/27/18 23:25 Room Air 01/27/18 21:18 99.1 101 18 110/73 (85) 100 Physical Exam GENERAL: NAD, A&Ox3 HEAD: Normocephalic. NECK: Supple, trachea midline. No lymphadenopathy. EYES: No scleral icterus. No injection or drainage. CARDIOVASCULAR: Regular rate and rhythm without murmurs, gallops, or rubs. RESPIRATORY: Breath sounds equal bilaterally. No accessory muscle use. Bilateral pulmonary edema/crackles at bases. GASTROINTESTINAL: Abdomen soft, non-tender, nondistended. MUSCULOSKELETAL: No cyanosis, bilateral lower extremity edema with ulcers ( excoriated blisters) at dorsal surfaces of feet SKIN: Warm and dry. NEURO: No focal neurological deficitis. Laboratory Laboratory Tests Test 01/27/18 23:21 01/28/18 02:35 01/28/18 10:25 White Blood Count 6.3 5.5 Red Blood Count 4.06 4.13 Hemoglobin 12.1 12.4 Hematocrit 37.2 38.0 Mean Corpuscular Volume 91.8 92.1 Mean Corpuscular Hemoglobin 29.9 30.0 Mean Corpuscular Hemoglobin Concent 32.6 32.5 Red Cell Distribution Width 18.8 18.5 Platelet Count 110 101 Mean Platelet Volume 10.9 10.1 Neutrophils (%) (Auto) 77.7 Lymphocytes (%) (Auto) 9.3 Monocytes (%) (Auto) 8.8 Eosinophils (%) (Auto) 2.1 Basophils (%) (Auto) 2.1 Neutrophils # (Auto) 4.9 Lymphocytes # (Auto) 0.6 Monocytes # (Auto) 0.6 Eosinophils # (Auto) 0.1 Basophils # (Auto) 0.1 CBC Comment DIFF FINAL Differential Comment Prothrombin Time 13.4 Prothromb Time International Ratio 1.3 Activated Partial Thromboplast Time 28.4 28.7 Blood Urea Nitrogen 53 Creatinine 2.00 Random Glucose 305 Total Protein 7.8 Albumin 3.2 Calcium Level 8.8 Magnesium Level 1.9 Alkaline Phosphatase 293 Aspartate Amino Transf (AST/SGOT) 55 Alanine Aminotransferase (ALT/SGPT) 56 Total Bilirubin 0.8 Sodium Level 138 Potassium Level 4.6 Chloride Level 101 Carbon Dioxide Level 31.4 Anion Gap 6 Estimat Glomerular Filtration Rate 32 B-Type Natriuretic Peptide 3831 Result Diagram: 01/28/18 0235 01/27/18 2321 Imaging Last Impressions Chest X-Ray 01/27/18 2259 Signed Impressions: Service Date/Time: January 23:06 - CONCLUSION: Stable abnormal chest appearance Brady Chirinos MD Lower Extremity Ultrasound 01/27/18 0000 Signed Impressions: Service Date/Time: Sunday, January 28, 2018 00:21 - CONCLUSION: Study is positive for left leg DVT MD Zoya Garcia VTE Risk Assessment Zoya VTE Risk Assessment: Mod/High Risk (score >= 2) Caprini Risk Assessment Model Point Value = 1 Point Value = 2 Point Value = 3 Point Value = 5 Age 41-60 Minor surgery BMI > 25 kg/m2 Swollen legs Varicose veins or History of unexplained or recurrent spontaneous Oral contraceptives or hormone replacement Sepsis (< 1 month) Serious lung disease, including pneumonia (< 1 month) Abnormal pulmonary function Acute myocardial infarction Congestive heart failure (< 1 month) History of inflammatory bowel disease Medical patient at bed rest Age 61-74 Arthroscopic surgery Major open surgery (> 45 min) Laparoscopic surgery (> 45 min) Malignancy Confined to bed (> 72 hours) Immobilizing plaster cast Central venous access Age >= 75 History of VTE Family history of VTE Factor V Leiden Prothrombin [id number] Lupus anticoagulant Anticardiolipin antibodies Elevated serum homocysteine Heparin-induced thrombocytopenia Other congenital or acquired thrombophilia Stroke (< 1 month) Elective arthroplasty Hip, pelvis, or leg fracture Acute spinal cord injury (< 1 month) Prophylaxis Regimen Total Risk Factor Score Risk Level Prophylaxis Regimen 0-1 Low Early ambulation 2 Moderate Order ONE of the following: *Sequential Compression Device (SCD) *Heparin 5000 units SQ BID 3-4 Higher Order ONE of the following medications: *Heparin 5000 units SQ TID *Enoxaparin/Lovenox 40 mg SQ daily (WT < 150 kg, CrCl > 30 mL/min) *Enoxaparin/Lovenox 30 mg SQ daily (WT < 150 kg, CrCl > 10-29 mL/min) *Enoxaparin/Lovenox 30 mg SQ BID (WT < 150 kg, CrCl > 30 mL/min) AND/OR *Sequential Compression Device (SCD) 5 or more Highest Order ONE of the following medications: *Heparin 5000 units SQ TID (Preferred with Epidurals) *Enoxaparin/Lovenox 40 mg SQ daily (WT < 150 kg, CrCl > 30 mL/min) *Enoxaparin/Lovenox 30 mg SQ daily (WT < 150 kg, CrCl > 10-29 mL/min) *Enoxaparin/Lovenox 30 mg SQ BID (WT < 150 kg, CrCl > 30 mL/min) AND *Sequential Compression Device (SCD) Assessment and Plan Problem List: (1) Left leg DVT ICD Code: I82.402 - Acute embolism and thrombosis of unspecified deep veins of left lower extremity (2) Acute exacerbation of CHF (congestive heart failure) ICD Code: I50.9 - Heart failure, unspecified (3) Edema ICD Code: R60.9 - Edema, unspecified Status: Acute (4) Chronic kidney disease (CKD) ICD Code: N18.9 - Chronic kidney disease, unspecified Status: Acute (5) Diabetes mellitus ICD Code: E11.9 - Type 2 diabetes mellitus without complications Status: Acute Assessment and Plan 82-year-old male admitted secondary to CHF exacerbation and left lower extremity DVT CHF exacerbation Chronic systolic congestive heart failure Bilateral lower extremity edema Bilateral pulmonary edema Continue diuresis P.o. treatment held 40 mg of IV Lasix twice daily Monitor for improvement in pulmonary edema and lower extremity edema Follow renal function Left lower extremity DVT history of bilateral PE Heparin drip initiated Start Coumadin Monitor INR Bilateral dorsal surface foot ulcers Continue wound care Monitor for resolution with improvement in edema RILEY vs. CKD Follow renal function Avoid nephrotoxins Coumadin selected as a treatment, rather than Xarelto Asthma COPD No exacerbation Follow clinically As needed albuterol Continue baseline inhaler treatments Hyperlipidemia Continue present treatment Follow as an outpatient Hypertension Continue baseline treatment Follow blood pressures Adjust treatments as needed Diabetes mellitus type 2 Follow blood sugars Insulin sliding scale Diabetic diet CAD history of CT No chest pain No plan changes to baseline treatment Follow clinically BPH Osteoarthritis GERD No exacerbations of these conditions continue baseline treatments DVT prophylaxis Heparin drip Coumadin starting Physician Certification 2 Midnight Certification Type: Admission for Inpatient Services Order for Inpatient Services The services are ordered in accordance with Medicare regulations or non- Medicare payer requirements, as applicable. In the case of services not specified as inpatient-only, they are appropriately provided as inpatient services in accordance with the 2-midnight benchmark. Estimated LOS (days): 3 days is the estimated time the patient will need to remain in the hospital, assuming treatment plan goals are met and no additional complications. Post-Hospital Plan: Home Problem Qualifiers (1) Acute exacerbation of CHF (congestive heart failure): Qualified Codes: I50.9 - Heart failure, unspecified Hayden Brown MD Jan 28, 2018 11:29
[2018-01-28] MEDS: INSULIN ASPART SUPPLEMENTAL SCALE SQ SCH ×3 (11:47→21:19)
[2018-01-28 12:00] VITALS: BP 106/65; PULSE 61; RESP 18; TEMP 97; O2SAT 94
[2018-01-28] MEDS ORDERED: traMADol HCL 50 MG TAB PO PRN ×2 (12:00)
[2018-01-28] MEDS ORDERED: NITROGLYCERIN 0.4 MG SL 25 TABS/BTL SL PRN (12:00)
[2018-01-28] MEDS ORDERED: BISACODYL EC 5 MG TABEC PO PRN (12:00)
[2018-01-28] MEDS ORDERED: RESP: ALBUTEROL 2.5 MG/IPRATROPIUM 0.5 MG NEB (PRN) NEB (12:00)
[2018-01-28] MEDS: PRIMIDONE 250 MG TAB PO SCH ×2 (14:57→17:07)
[2018-01-28 16:00] VITALS: BP 152/77; PULSE 74; RESP 16; TEMP 97.7; O2SAT 96
[2018-01-28] MEDS ORDERED: ACETAMINOPHEN/HYDROcodone 325 MG/5 MG TAB PO PRN (16:30)
[2018-01-28] MEDS: WARFARIN SOD 4 MG TAB PO SCH (17:07)
[2018-01-28] MEDS: ACETAMINOPHEN/HYDROcodone 325 MG/10 MG TAB PO PRN (17:20)
[2018-01-28 20:00] VITALS: BP 113/70; PULSE 101; RESP 18; TEMP 97.9; O2SAT 100
[2018-01-28] MEDS: FINASTERIDE 5 MG TAB PO SCH (21:19)
[2018-01-28] MEDS: ATORVASTATIN 40 MG TAB PO SCH (21:19)
[2018-01-28] MEDS: INSULIN DETEMIR 100 UNITS/ML VIAL SQ SCH (21:19)
[2018-01-28] MEDS: PANTOPRAZOLE SOD 20 MG DELAYED RELEASE TAB PO SCH (21:19)
[2018-01-29] VITALS (8 sets, daily range): BP systolic 102–120; BP diastolic 60–80; PULSE 87–102; RESP 16–18; TEMP 96–98.1; O2SAT 96–99
[2018-01-29] MEDS: RESP: ALBUTEROL 2.5 MG/IPRATROPIUM 0.5 MG NEB (PRN) NEB ×4 (00:11→23:09)
[2018-01-29 07:46] LABS: AUTOMATED NEUTROPHIL # 3.8 TH/MM3 (1.8-7.7); BASOPHIL % 0.4 % (0.0-2.0); EOSINOPHIL # 0.1 TH/MM3 (0-0.4); EOSINOPHIL % 1.3 % (0.0-4.0); HEMATOCRIT 34.8 % (39.0-51.0); HEMOGLOBIN 11.1 GM/DL (13.0-17.0); LYMPH % 10.8 % (9.0-44.0); LYMPHOCYTE # 0.6 TH/MM3 (1.0-4.8); MEAN CELL VOLUME 91.1 FL (80.0-100.0); MEAN CORPUSCULAR HEMOGLOBIN 29.1 PG (27.0-34.0); MEAN CORPUSCULAR HGB CONC 31.9 % (32.0-36.0); MEAN PLATELET VOLUME 10.9 FL (7.0-11.0); MONO % 11.5 % (0.0-8.0); MONOCYTE # 0.6 TH/MM3 (0-0.9); PLATELET COUNT 124 TH/MM3 (150-450); RED BLOOD COUNT 3.83 MIL/MM3 (4.50-5.90); RED CELL DISTRIBUTION WIDTH 18.6 % (11.6-17.2); WHITE BLOOD COUNT 5.1 TH/MM3 (4.0-11.0)
[2018-01-29 07:55] LABS: CHLORIDE 103 MEQ/L (98-107); SODIUM (NA) 141 MEQ/L (136-145)
[2018-01-29 07:58] LABS: ALBUMIN 2.8 GM/DL (3.4-5.0); BICARBONATE 28.3 MEQ/L (21.0-32.0); CALCIUM 8.5 MG/DL (8.5-10.1)
[2018-01-29 07:59] LABS: INTERNATIONAL NORMALIZED RATIO 1.5 RATIO; PROTHROMBIN TIME - PATIENT 15.4 SEC (9.8-11.6)
[2018-01-29] MEDS: INSULIN ASPART SUPPLEMENTAL SCALE SQ SCH ×4 (08:00→21:31)
[2018-01-29 08:02] LABS: GLUCOSE,RANDOM 52 MG/DL (74-106)
[2018-01-29 08:09] LABS: ALKALINE PHOSPHATASE 256 U/L (45-117); ALT (GPT) 68 U/L (12-78); AST (GOT) 96 U/L (15-37); BLOOD UREA NITROGEN 60 MG/DL (7-18); GLOMERULAR FILTRATION RATE 32 ML/MIN (>89); TOTAL BILIRUBIN ADULT 0.8 MG/DL (0.2-1.0); TOTAL PROTEIN 6.9 GM/DL (6.4-8.2)
[2018-01-29] MEDS: DOCUSATE SODIUM 50 MG/SENNA 8.6 MG TAB PO SCH ×2 (09:00→20:28)
[2018-01-29] MEDS: FLUTICASONE 200 MCG/VILANTEROL 25 MCG INHALER INH SCH (09:14)
[2018-01-29] MEDS: FUROSEMIDE 40 MG/4 ML VIAL IV PUSH SCH ×2 (09:15→17:34)
[2018-01-29] MEDS: SODIUM CHLORIDE 0.9% FLUSH 10 ML FLUSH IV FLUSH SCH ×2 (09:15→20:28)
[2018-01-29] MEDS: PRIMIDONE 250 MG TAB PO SCH ×3 (09:16→17:31)
[2018-01-29] MEDS: CLOPIDOGREL 75 MG TAB PO SCH (09:16)
[2018-01-29] MEDS: CHOLECALCIFEROL (VIT D3) 1000 UNIT TAB PO SCH (09:16)
[2018-01-29] MEDS: CETIRIZINE HCL 10 MG TAB PO SCH (09:16)
[2018-01-29] MEDS: MULTIVITAMINS/MINERALS THERAPEUTIC TAB PO SCH (09:16)
[2018-01-29] MEDS: PANTOPRAZOLE SOD 20 MG DELAYED RELEASE TAB PO SCH ×2 (09:16→20:28)
[2018-01-29] MEDS: HEPARIN-D5W 25,000 U/250 ML 250 ML IV PRN (09:27)
[2018-01-29] MEDS: ACETAMINOPHEN/HYDROcodone 325 MG/10 MG TAB PO PRN ×4 (09:33→21:32)
--- NOTE | 2018-01-29 14:56 | HHI.PR ---
Subjective Remarks Nursing denies any deterioration since last night. Patient himself says that his lower extremity edema is much improved since yesterday. However his shortness of breath he says is unchanged since yesterday. Objective Vital Signs Date Time Temp Pulse Resp B/P (MAP) Pulse Ox O2 Delivery O2 Flow Rate FiO2 01/29/18 12:00 98.0 90 16 118/80 (93) 97 01/29/18 10:33 18 01/29/18 08:22 99 Nasal Cannula 2.00 01/29/18 08:00 98.0 87 16 120/60 (80) 98 01/29/18 00:12 99 Nasal Cannula 2.00 01/29/18 00:00 98.1 102 18 106/71 (83) 98 01/28/18 20:45 Nasal Cannula 2.00 01/28/18 20:00 97.9 101 18 113/70 (84) 100 01/28/18 16:00 97.7 74 16 152/77 (102) 96 I/O 01/28/18 01/28/18 01/28/18 01/29/18 01/29/18 01/29/18 07:00 15:00 23:00 07:00 15:00 23:00 Intake Total 600 ml 820 ml 300 ml Output Total 250 ml 150 ml 151 ml 700 ml 350 ml Balance -250 ml -150 ml 449 ml 120 ml -50 ml Intake Oral 600 ml 820 ml 300 ml Output Urine Total 250 ml 150 ml 150 ml 700 ml 350 ml Stool Total 1 ml # Voids 2 3 # Bowel Movements 0 0 1 7 Result Diagram: 01/29/18 0635 01/29/18634 Objective Remarks Almost entirely clear breath sounds bilaterally with slightly diminished sounds in the bases with no crackles Mild to moderate bilateral ankle edema Frail-appearing elderly white male A/P Assessment and Plan 82-year-old male admitted secondary to CHF exacerbation and left lower extremity DVT acute on chronic systolic CHF exacerbation improving, continue diuresis 40 mg of IV Lasix twice daily BMP in a.m. Left lower extremity DVT history of bilateral PE transition from heparin drip to renally adjusted weight based Lovenox bridge for Coumadin Coumadin in light of labile RF Bilateral dorsal surface foot ulcers Continue wound care Monitor for resolution with improvement in edema RILEY vs. CKD Follow renal function Avoid nephrotoxins Coumadin selected as a treatment, rather than Xarelto Asthma COPD As needed albuterol Continue baseline inhaler treatments Hyperlipidemia Continue present treatment Hypertension Continue baseline treatment Diabetes mellitus type 2 Follow blood sugars Insulin sliding scale Diabetic diet CAD history of [place] No plan changes to baseline treatment BPH Osteoarthritis GERD continue baseline treatments Jak Rojas MD Jan 29, 2018 14:56
[2018-01-29] MEDS ORDERED: BENZOCAINE-MENTHOL (SUGAR FREE) 15 MG-3.6 MG LOZENGE BUCCAL PRN (15:45)
[2018-01-29] MEDS ORDERED: LIDOCAINE VISCOUS 2% SOLN 15 ML UDC SWISH-SWAL ONE (16:00)
[2018-01-29] MEDS: WARFARIN SOD 4 MG TAB PO SCH (16:19)
[2018-01-29] MEDS: ENOXAPARIN SODIUM 80 MG/0.8 ML SYRINGE SQ SCH (17:34)
[2018-01-29] MEDS: ATORVASTATIN 40 MG TAB PO SCH (20:28)
[2018-01-29] MEDS: FINASTERIDE 5 MG TAB PO SCH (20:28)
[2018-01-29] MEDS: INSULIN DETEMIR 100 UNITS/ML VIAL SQ SCH (21:31)
[2018-01-30] VITALS (7 sets, daily range): BP systolic 102–118; BP diastolic 58–82; PULSE 78–101; RESP 17–20; TEMP 96.6–97.9; O2SAT 93–99
[2018-01-30] MEDS: PHENOL 1.4% SOLN 180 ML BTL OROPHARYNG PRN ×2 (05:09→09:40)
[2018-01-30] MEDS: RESP: ALBUTEROL 2.5 MG/IPRATROPIUM 0.5 MG NEB (PRN) NEB ×2 (07:35→14:47)
[2018-01-30] MEDS: INSULIN ASPART SUPPLEMENTAL SCALE SQ SCH ×4 (08:00→21:37)
[2018-01-30] MEDS: SODIUM CHLORIDE 0.9% FLUSH 10 ML FLUSH IV FLUSH SCH ×2 (08:08→21:39)
[2018-01-30] MEDS: FLUTICASONE 200 MCG/VILANTEROL 25 MCG INHALER INH SCH (09:13)
[2018-01-30] MEDS: PRIMIDONE 250 MG TAB PO SCH ×3 (09:14→17:45)
[2018-01-30] MEDS: DOCUSATE SODIUM 50 MG/SENNA 8.6 MG TAB PO SCH ×2 (09:14→21:39)
[2018-01-30] MEDS: PANTOPRAZOLE SOD 20 MG DELAYED RELEASE TAB PO SCH ×2 (09:14→21:40)
[2018-01-30] MEDS: CHOLECALCIFEROL (VIT D3) 1000 UNIT TAB PO SCH (09:14)
[2018-01-30] MEDS: CETIRIZINE HCL 10 MG TAB PO SCH (09:15)
[2018-01-30] MEDS: CLOPIDOGREL 75 MG TAB PO SCH (09:15)
[2018-01-30] MEDS: MULTIVITAMINS/MINERALS THERAPEUTIC TAB PO SCH (09:15)
[2018-01-30] MEDS: FUROSEMIDE 40 MG/4 ML VIAL IV PUSH SCH (09:17)
[2018-01-30] MEDS: ACETAMINOPHEN/HYDROcodone 325 MG/10 MG TAB PO PRN (11:31)
[2018-01-30] MEDS ORDERED: SILVER SULFADIAZINE 1% CR 50 GM JAR TOPICAL ONE (15:00)
--- NOTE | 2018-01-30 15:01 | HHI.PR ---
Subjective Remarks Nursing denies any deterioration since last night. However patient is no longer wanting pure diet. Says his sore throat is better. Says however his dorsal foot pain is bad from the blisters. Says his breathing is a little bit better since yesterday. Says he does not want to go back to [facility] for rehab. Wants to give it a shot ambulating around today. Objective Vital Signs Date Time Temp Pulse Resp B/P (MAP) Pulse Ox O2 Delivery O2 Flow Rate FiO2 01/30/18 12:31 18 01/30/18 12:00 97.9 96 20 102/58 (73) 93 01/30/18 08:00 96.9 78 20 102/59 (73) 97 01/30/18 07:38 99 21 01/30/18 00:00 96.6 99 18 106/67 (80) 98 01/29/18 20:03 96 21 01/29/18 20:00 96.0 95 18 102/64 (77) 98 01/29/18 17:25 94 113/75 (88) 96 I/O 01/29/18 01/29/18 01/29/18 01/30/18 01/30/18 01/30/18 07:00 15:00 23:00 07:00 15:00 23:00 Intake Total 820 ml 550 ml 348 ml 240 ml Output Total 700 ml 350 ml 200 ml 550 ml Balance 120 ml 200 ml 148 ml -310 ml Intake Oral 820 ml 300 ml 300 ml 240 ml IV Total 250 ml 48 ml Output Urine Total 700 ml 350 ml 200 ml 550 ml # Bowel Movements 7 1 Result Diagram: 01/29/18 0635 01/29/18 06 Objective Remarks Lungs are clear bilaterally, slightly labored breathing Blister noted on right foot dorsum, left foot with superficial dermis with substantial abrasion A/P Assessment and Plan 82-year-old male admitted secondary to CHF exacerbation and left lower extremity DVT acute on chronic systolic CHF exacerbation much improved since admission We will switch over to Lasix p.o. today Left lower extremity DVT history of bilateral PE Lovenox bridge for Coumadin Coumadin in light of labile RF Bilateral dorsal surface foot ulcers Continue wound care Monitor for resolution with improvement in edema Persistent pain despite being on [place] 10, adding on Silvadene and wound care consult RILEY vs. CKD Follow renal function Avoid nephrotoxins Coumadin selected as a treatment, rather than Xarelto Asthma COPD As needed albuterol Continue baseline inhaler treatments Hyperlipidemia Continue present treatment Hypertension Continue baseline treatment Diabetes mellitus type 2 Follow blood sugars Insulin sliding scale Diabetic diet CAD history of [place] No plan changes to baseline treatment BPH Osteoarthritis GERD continue baseline treatments Discharge Planning Anticipate going to rehab in the next 24-48 hours, not safe to go home with PT per discussion with therapy Jak Rojas MD Jan 30, 2018 15:01
[2018-01-30] MEDS: WARFARIN SOD 4 MG TAB PO SCH (16:00)
[2018-01-30] MEDS: ENOXAPARIN SODIUM 80 MG/0.8 ML SYRINGE SQ SCH (17:47)
[2018-01-30] MEDS ORDERED: INSULIN DETEMIR 100 UNITS/ML VIAL SQ SCH (21:00)
[2018-01-30] MEDS: SILVER SULFADIAZINE 1% CR 50 GM JAR TOPICAL SCH (21:36)
[2018-01-30] MEDS: ATORVASTATIN 40 MG TAB PO SCH (21:39)
[2018-01-30] MEDS: FINASTERIDE 5 MG TAB PO SCH (21:39)
[2018-01-31] VITALS (10 sets, daily range): BP systolic 98–126; BP diastolic 68–79; PULSE 88–99; RESP 16–30; TEMP 96.4–97.8; O2SAT 91–100
[2018-01-31] MEDS: RESP: ALBUTEROL 2.5 MG/IPRATROPIUM 0.5 MG NEB (PRN) NEB ×5 (04:47→19:56)
[2018-01-31] MEDS: INSULIN ASPART SUPPLEMENTAL SCALE SQ SCH ×4 (08:00→21:12)
[2018-01-31] MEDS ORDERED: FUROSEMIDE 40 MG TAB PO SCH (09:00)
[2018-01-31] MEDS: SODIUM CHLORIDE 0.9% FLUSH 10 ML FLUSH IV FLUSH SCH ×2 (09:08→21:00)
[2018-01-31] MEDS: PANTOPRAZOLE SOD 20 MG DELAYED RELEASE TAB PO SCH ×2 (09:08→21:13)
[2018-01-31] MEDS: DOCUSATE SODIUM 50 MG/SENNA 8.6 MG TAB PO SCH ×2 (09:08→21:13)
[2018-01-31] MEDS: CLOPIDOGREL 75 MG TAB PO SCH (09:08)
[2018-01-31] MEDS: CETIRIZINE HCL 10 MG TAB PO SCH (09:08)
[2018-01-31] MEDS: MULTIVITAMINS/MINERALS THERAPEUTIC TAB PO SCH (09:08)
[2018-01-31] MEDS: ACETAMINOPHEN/HYDROcodone 325 MG/10 MG TAB PO PRN (09:09)
[2018-01-31] MEDS: PRIMIDONE 250 MG TAB PO SCH ×3 (09:09→18:23)
[2018-01-31] MEDS: SILVER SULFADIAZINE 1% CR 50 GM JAR TOPICAL SCH (09:11)
[2018-01-31] MEDS: FLUTICASONE 200 MCG/VILANTEROL 25 MCG INHALER INH SCH (09:11)
[2018-01-31] MEDS: CHOLECALCIFEROL (VIT D3) 1000 UNIT TAB PO SCH (09:17)
[2018-01-31] MEDS ORDERED: MORPHINE SULFATE 2 MG/ML SYRINGE IV PUSH ONE (10:00)
--- NOTE | 2018-01-31 11:43 | HHI.PR ---
Subjective Remarks Patient seen today in follow-up for shortness of breath likely due to congestive heart failure exacerbation and for lower extremity pain secondary to ulcerations and probable low vascular flow. Dopplers obtained at the bedside and wound examined with nursing team Patient's pain is well controlled with IV morphine Objective Vitals Vital Signs Date Time Temp Pulse Resp B/P (MAP) Pulse Ox O2 Delivery O2 Flow Rate FiO2 01/31/18 07:50 97.8 93 20 109/68 (82) 93 01/31/18 07:32 95 01/31/18 00:00 97.5 99 16 121/79 (93) 94 01/30/18 20:05 94 21 01/30/18 20:00 97.9 101 17 118/82 (94) 95 01/30/18 16:00 97.7 96 18 112/79 (90) 95 01/30/18 12:31 18 01/30/18 12:00 97.9 96 20 102/58 (73) 93 I/O 01/30/18 01/30/18 01/30/18 01/31/18 01/31/18 01/31/18 07:00 15:00 23:00 07:00 15:00 23:00 Intake Total 240 ml 650 ml Output Total 550 ml 825 ml 100 ml 500 ml Balance -310 ml -175 ml -100 ml -500 ml Intake Oral 240 ml 650 ml Output Urine Total 550 ml 825 ml 100 ml 500 ml # Bowel Movements 1 0 Result Diagram: 01/29/18 0635 01/29/18 0635 Imaging Last Impressions Chest X-Ray 01/27/18 2259 Signed Impressions: Service Date/Time: January 23:06 - CONCLUSION: Stable abnormal chest appearance Brady Chirinos MD Lower Extremity Ultrasound 01/27/18 0000 Signed Impressions: Service Date/Time: Sunday, January 28, 2018 00:21 - CONCLUSION: Study is positive for left leg DVT Brady Chirinos MD Objective Remarks SKIN: bilat large ulcerated skin on dorsum of both feet, GENERAL: This is a well-nourished, well-developed patient, in no apparent distress. CARDIOVASCULAR: Regular rate and rhythm without murmurs, gallops, or rubs. RESPIRATORY: Clear to auscultation. Breath sounds equal bilaterally. No wheezes , rales, or rhonchi. GASTROINTESTINAL: Abdomen soft, non-tender, nondistended. Normal active bowel sounds MUSCULOSKELETAL: Extremities without clubbing, cyanosis, +1-2 edema bilat feet NEURO: Alert & Oriented x4 to person, place, time, situation. Moves all ext x4 Doppler bilat DP and lm pulse A/P Problem List: (1) Left leg DVT ICD Code: I82.402 - Acute embolism and thrombosis of unspecified deep veins of left lower extremity Plan: Resume heparin, warfarin inr 1.5 dc plavix (2) Acute exacerbation of CHF (congestive heart failure) ICD Code: I50.9 - Heart failure, unspecified Plan: Patient with known EF of 20%, patient follows up with Dr. Carrillo vp research He is an appropriate candidate for hospice management if no defibrillator is planned Continue with medical management for now Patient is very symptomatic with inability to lay flat, orthopnea and sensation of air hunger (3) Edema ICD Code: R60.9 - Edema, unspecified Status: Acute Plan: Chronic likely due to chronic heart failure Patient also has quite a bit of edema from the ulcerated skin lesions on his feet (4) Chronic kidney disease (CKD) ICD Code: N18.9 - Chronic kidney disease, unspecified Status: Acute Plan: Stable, avoid nephrotoxic injury Difficult to treat heart failure in the setting of renal failure (5) Diabetes mellitus ICD Code: E11.9 - Type 2 diabetes mellitus without complications Status: Acute Plan: Currently controlled on medical management Continue diabetic diet and insulin Some hypoglycemia with higher dose of Levemir, will add low-dose of Levemir (6) Skin ulcers of both feet ICD Code: L97.519 - Non-pressure chronic ulcer of other part of right foot with unspecified severity; L97.529 - Non-pressure chronic ulcer of other part of left foot with unspecified severity Plan: Very atypical and worrisome for ischemic changes in this patient with significant cardiovascular history Continue supportive care with MSIR and anticoagulation Will discuss with cardiology regarding further intervention and studies in this patient with low cardiovascular tolerance for any surgical revascularization Discharge Planning Consider hospice care Problem Qualifiers (1) Acute exacerbation of CHF (congestive heart failure): Qualified Codes: I50.9 - Heart failure, unspecified Gerri Ackerman MD Jan 31, 2018 11:43
[2018-01-31] MEDS ORDERED: MORPHINE SULFATE 15 MG TAB PO PRN (12:00)
[2018-01-31] MEDS ORDERED: HEPARIN-D5W 25,000 U/250 ML 250 ML IV SCH (13:00)
[2018-01-31 13:24] LABS: HEMATOCRIT 39.2 % (39.0-51.0); HEMOGLOBIN 12.9 GM/DL (13.0-17.0); MEAN CELL VOLUME 91.4 FL (80.0-100.0); MEAN CORPUSCULAR HGB CONC 32.9 % (32.0-36.0); MEAN PLATELET VOLUME 11.3 FL (7.0-11.0); RED BLOOD COUNT 4.28 MIL/MM3 (4.50-5.90); RED CELL DISTRIBUTION WIDTH 18.8 % (11.6-17.2); WHITE BLOOD COUNT 6.1 TH/MM3 (4.0-11.0)
[2018-01-31 13:25] LABS: PLATELET COUNT 162 TH/MM3 (150-450)
[2018-01-31 13:28] LABS: INTERNATIONAL NORMALIZED RATIO 2.7 RATIO; PROTHROMBIN TIME - PATIENT 27.5 SEC (9.8-11.6)
--- NOTE | 2018-01-31 16:38 | RADRPT ---
EXAM DATE/TIME: 01/31/2018 16:16 [facility] COMPARISON: CHEST SINGLE AP, January 27, 2018, 23:06. INDICATIONS : Shortness of breath. MEDICAL HISTORY : Emphysema. Chronic obstructive pulmonary disease. Hypercholesterolemia. Hypertension, Asthma, Jhonatan cardial infarction, Coronary artery disease, CHF. Hypothyroid SURGICAL HISTORY : Coronary artery stent. Cardiac catheterization. Right lung biopsy. ENCOUNTER: Subsequent ACUITY: 1 week PAIN SCORE: 0/10 LOCATION: Bilateral chest FINDINGS: A single view of the chest demonstrates worsening elevation of the right hemidiaphragm with probable right sided effusion. Heart size is prominent. Central vasculature remains prominent with some accent uation of interstitial markings probably representing some degree of vascular congestion or volume ov erload. Possibly some degree of parenchymal scarring in the apices. Dextroscoliosis of the dorsal spi ne. Osseous structures are intact. Osseous anchor in the right proximal humerus is probably associate d with a prior rotator cuff repair. CONCLUSION: 1. Elevation of right hemidiaphragm with possible worsening associated effusion. 2. Parenchymal scarring predominantly in the apices 3. Plain film finding concerning for some degree of vascular congestion or volume overload with promi nence of the central hilar vascular structures and interstitial prominence, unchanged. Heart size rem ains prominent. Fabio Farnsworth MD on January 31, 2018 at 16:32 Board Certified Radiologist. This report was verified electronically.
[2018-01-31] MEDS: WARFARIN SOD 4 MG TAB PO SCH (16:43)
--- NOTE | 2018-01-31 17:22 | RADRPT ---
EXAM DATE/TIME: 01/31/2018 17:06 [place] COMPARISON: CT BRAIN W/O CONTRAST, June 23, 2016, 4:58. INDICATIONS : Neuro changes. RADIATION DOSE: 44.85 CTDIvol (mGy) ; Patient motion MEDICAL HISTORY : Cardiovascular disease. Hypertension. Chronic obstructive pulmonary disease.Diabetes. Pulmonary embol ism. Anticoagulant therapy. SURGICAL HISTORY : Coronary artery stent. ENCOUNTER: Initial ACUITY: 1 day PAIN SCALE: 0/10 LOCATION: cranial TECHNIQUE: Multiple contiguous axial images were obtained of the head. Using automated exposure control and adj ustment of the mA and/or kV according to patient size, radiation dose was kept as low as reasonably a chievable to obtain optimal diagnostic quality images. DICOM format image data is available electro nically for review and comparison. FINDINGS: CEREBRUM: The ventricles are normal for age. No evidence of midline shift, mass lesion, hemorrhage or acute in farction. No extra-axial fluid collections are seen. POSTERIOR FOSSA: The cerebellum and brainstem are intact. The 4th ventricle is midline. The cerebellopontine angle i s unremarkable. EXTRACRANIAL: The visualized portion of the orbits is intact. SKULL: The calvaria is intact. No evidence of skull fracture. CONCLUSION: Negative for an acute process. Aric Zaragoza MD FACR on January 31, 2018 at 17:20 Board Certified Radiologist. This report was verified electronically.
[2018-01-31] MEDS ORDERED: CHLORHEXIDINE GLUCONATE 2 % 1 PACK (2 CLOTHS)(extra cloths) TOPICAL PRN (18:00)
[2018-01-31] MEDS ORDERED: FUROSEMIDE 40 MG/4 ML VIAL IV PUSH SCH (18:00)
[2018-01-31] MEDS ORDERED: INSULIN DETEMIR 100 UNITS/ML VIAL SQ SCH (21:00)
[2018-01-31] MEDS: FINASTERIDE 5 MG TAB PO SCH (21:13)
[2018-01-31] MEDS: ATORVASTATIN 40 MG TAB PO SCH (21:13)
[2018-02-01] VITALS (18 sets, daily range): BP systolic 83–112; BP diastolic 52–81; PULSE 82–94; RESP 12–45; TEMP 97.3–97.5; O2SAT 89–100
[2018-02-01] MEDS ORDERED: CHLORHEXIDINE GLUCONATE 2 % 1 PACK (2 CLOTHS)(taper/protocol) TOPICAL SCH (04:00)
[2018-02-01] MEDS: INSULIN ASPART SUPPLEMENTAL SCALE SQ SCH ×3 (08:00→17:25)
--- NOTE | 2018-02-01 08:11 | MB ---
cc: Nas Carrillo MD DATE: 02/01/2018 REASON FOR CONSULTATION: Congestive heart failure exacerbation. HISTORY OF PRESENT ILLNESS: This is an 82-year-old male who is well known to me, had a past medical history of chronic coronary artery disease, ischemic cardiomyopathy with ejection fraction of 35%, hyperlipidemia, type 2 diabetes mellitus, carotid arterial disease, COPD and DVT. The patient was transferred to [facility] with lower extremity pain and edema. The initial workup included a chest x-ray which showed congestive heart failure with elevated BNP at 3800. Lower extremity venous ultrasound was positive for a left lower extremity DVT. The patient was started on diuresis and anticoagulation with heparin and admitted to ICU for further evaluation and management. This morning, the patient is chest pain free. He denies shortness of breath. He still has mild to moderate lower extremity edema. ALLERGIES: MULTIPLE INCLUDING LATEX, PREDNISONE, CIPROFLOXACIN, INSULIN AND FLONASE. SOCIAL HISTORY: Nonsmoker, nondrinker. FAMILY HISTORY: Noncontributory. REVIEW OF SYSTEMS: HEENT: No complaints of lightheadedness or dizziness. CARDIOVASCULAR: History of coronary artery disease and severe ischemic cardiomyopathy. PULMONARY: History of COPD, GI: No history of GERD or GI bleed. GENITOURINARY: History of chronic kidney disease. The remainder of his review of systems is within normal limits. PHYSICAL EXAMINATION: VITAL SIGNS: Show blood pressure of 97/81 with a heart rate of 86, respiratory rate of 12. The patient is afebrile. NECK: Supple with no jugular venous distention. CHEST: Clear to auscultation and percussion. HEART: S1 normal intensity. S2, single. Regular rate and rhythm. No S3 appreciated. CHEST: Crackles bilateral bases. ABDOMEN: Benign. EXTREMITIES: +1 edema. IMPRESSION: 1. Acute on chronic congestive heart failure secondary to severe ischemic cardiomyopathy. 2. Left lower extremity deep venous thrombosis. 3. History of coronary artery disease. 4. Chronic obstructive pulmonary disease. 5. Type 2 diabetes mellitus. 6. Borderline hypotension. 7. Type 2 diabetes mellitus. 8. Chronic kidney disease. RECOMMENDATIONS: I agree with unloading treatment. The patient is DNR. I will adhere to conservative management. The patient is currently on warfarin. I recommend keeping PT/INR between 2 and 3 and continuing furosemide at 40 mg daily. I will continue to follow and provide further recommendations accordingly. AhMD [place] Guido , 07:46 AM , 08:10 AM
[2018-02-01] MEDS ORDERED: SILVER SULFADIAZINE 1% CR 400 GM JAR TOPICAL SCH (09:00)
[2018-02-01] MEDS: SODIUM CHLORIDE 0.9% FLUSH 10 ML FLUSH IV FLUSH SCH (09:00)
[2018-02-01] MEDS: RESP: ALBUTEROL 2.5 MG/IPRATROPIUM 0.5 MG NEB (PRN) NEB (10:25)
--- NOTE | 2018-02-01 11:57 | PD.WCN.NOT ---
Wound Consult Description: Received consult from Doctor Rojas for evaluation of wounds to bilateral feet Communicated with: AUSTIN Duran [facility] ICU and Doctor Tyron Recommendation: 1.Please continue Silvadine cream with topical lidocaine (Ritters cream )to bilateral dorsal feet wounds. Cover with single layer of Oil emulsion gauze just over open wound not on intact skin or intact bulla. cover with dry 4x4 gauze pads, secured with rolled gauze and tape. Change BID Additional Information: Edi seen on 3rd floor [facility] for bilateral feet wounds. Removed dressings in place to reveal partial thickness wounds to dorsal aspect of Bilateral feet L foot wound extends between the great toe and second toe. L foot wound measures ~ 5cm x~3cm x ~<0.1cm. Wound bed presents with 50% pink tissue and ~50% red non granulation tissue. Wound drainage is minimal and sero-sanguinous with out odor. Wound margins are poorly defined. Periwound is noted with some erythema that is blanchable. R foot wound presents with 100% pink tissue that has minimal drainage without odor. Wound measures ~3cm x ~4cm x ~<0.1cm. Periwound is noted with intact bulla at 9 o'clock measuring ~1cm x ~2cm. Wound margins are poorly defined. Cleansed wound with normal saline and applied Silvadene cream to bilateral dorsal feet wounds and covered with Xeroform gauze just over open wounds and not on intact skin. Secured dressings with rolled gauze and tape. Nava Kessler [facility] Feb 01, 2018 11:57
[2018-02-01] MEDS: FLUTICASONE 200 MCG/VILANTEROL 25 MCG INHALER INH SCH (12:01)
[2018-02-01] MEDS: DOCUSATE SODIUM 50 MG/SENNA 8.6 MG TAB PO SCH (12:02)
[2018-02-01] MEDS: PRIMIDONE 250 MG TAB PO SCH ×2 (12:02→16:03)
[2018-02-01] MEDS: CETIRIZINE HCL 10 MG TAB PO SCH (12:02)
[2018-02-01] MEDS: PANTOPRAZOLE SOD 20 MG DELAYED RELEASE TAB PO SCH (12:14)
[2018-02-01] MEDS: CHOLECALCIFEROL (VIT D3) 1000 UNIT TAB PO SCH (12:14)
[2018-02-01] MEDS: MULTIVITAMINS/MINERALS THERAPEUTIC TAB PO SCH (12:14)
[2018-02-01] MEDS ORDERED: MORPHINE SULFATE 15 MG TAB PO PRN (13:00)
--- NOTE | 2018-02-01 13:00 | HHI.PR ---
Subjective Remarks Patient seen and evaluated today in follow-up for congestive heart failure, end- stage with shortness of breath and weakness and dyspnea. Seen in ICU today. Much more alert than yesterday. Care plan discussed with TEACHER [employer] Objective Vitals Vital Signs Date Time Temp Pulse Resp B/P (MAP) Pulse Ox O2 Delivery O2 Flow Rate FiO2 02/01/18 10:26 100 Nasal Cannula 2.00 02/01/18 05:03 86 14 97/81 (86) 97 02/01/18 05:00 86 15 83/66 (72) 98 02/01/18 04:00 97.5 82 16 102/69 (80) 96 02/01/18 03:00 84 32 102/69 (80) 89 02/01/18 02:00 82 14 93/71 (78) 100 02/01/18 01:00 88 18 97/72 (80) 98 02/01/18 00:00 97.3 84 21 97/69 (78) 99 01/31/18 23:00 88 24 98/68 (78) 91 01/31/18 20:00 97.3 93 30 103/73 (83) 96 01/31/18 19:57 99 Nasal Cannula 4.00 01/31/18 18:00 23 99/77 (84) 97 01/31/18 17:35 95 Nasal Cannula 4.00 01/31/18 15:39 96.4 96 20 112/74 (87) 96 I/O 01/31/18 01/31/18 01/31/18 02/01/18 02/01/18 02/01/18 07:00 15:00 23:00 07:00 15:00 23:00 Intake Total 360 ml Output Total 500 ml 250 ml Balance -500 ml 110 ml Intake Oral 360 ml Output Urine Total 500 ml 250 ml # Bowel Movements 0 Result Diagram: 01/31/18 1245 01/29/18 0635 Imaging Last Impressions Head CT 01/31/18 1700 Signed Impressions: Service Date/Time: Wednesday, January 31, 2018 17:06 - CONCLUSION: Negative for an acute process. Aric Zaragoza MD FACR Chest X-Ray 01/31/18 0000 Signed Impressions: Service Date/Time: Wednesday, January 31, 2018 16:16 - CONCLUSION: 1. Elevation of right hemidiaphragm with possible worsening associated effusion. 2. Parenchymal scarring predominantly in the apices 3. Plain film finding concerning for some degree of vascular congestion or volume overload with prominence of the central hilar vascular structures and interstitial prominence, unchanged. Heart size remains prominent. Fabio Farnsworth MD Lower Extremity Ultrasound 01/27/18 0000 Signed Impressions: Service Date/Time: Sunday, January 28, 2018 00:21 - CONCLUSION: Study is positive for left leg DVT Brady Chirinos MD Objective Remarks SKIN: bilat large ulcerated skin on dorsum of both feet, GENERAL: This is a well-nourished, well-developed patient, in no apparent distress. CARDIOVASCULAR: Regular rate and rhythm without murmurs, gallops, or rubs. RESPIRATORY: Clear to auscultation. Breath sounds equal bilaterally. No wheezes , rales, or rhonchi. GASTROINTESTINAL: Abdomen soft, non-tender, nondistended. Normal active bowel sounds MUSCULOSKELETAL: Extremities without clubbing, cyanosis, +1-2 edema bilat feet NEURO: Alert & Oriented x4 to person, place, time, situation. Moves all ext x4 Doppler bilat DP and lm pulse A/P Problem List: (1) Left leg DVT ICD Code: I82.402 - Acute embolism and thrombosis of unspecified deep veins of left lower extremity Plan: Resume heparin, warfarin inr 1.5 dc plavix (2) Acute exacerbation of CHF (congestive heart failure) ICD Code: I50.9 - Heart failure, unspecified Plan: Patient with known EF of 20%, patient follows up with Dr. Carrillo dual rate dealer He is an appropriate candidate for hospice management if no defibrillator is planned Continue with medical management for now Patient is very symptomatic with inability to lay flat, orthopnea and sensation of air hunger (3) Edema ICD Code: R60.9 - Edema, unspecified Status: Acute Plan: Chronic likely due to chronic heart failure Patient also has quite a bit of edema from the ulcerated skin lesions on his feet (4) Chronic kidney disease (CKD) ICD Code: N18.9 - Chronic kidney disease, unspecified Status: Acute Plan: Stable, avoid nephrotoxic injury Difficult to treat heart failure in the setting of renal failure (5) Diabetes mellitus ICD Code: E11.9 - Type 2 diabetes mellitus without complications Status: Acute Plan: Currently controlled on medical management Continue diabetic diet and insulin Some hypoglycemia with higher dose of Levemir, will add low-dose of Levemir (6) Skin ulcers of both feet ICD Code: L97.519 - Non-pressure chronic ulcer of other part of right foot with unspecified severity; L97.529 - Non-pressure chronic ulcer of other part of left foot with unspecified severity Plan: Very atypical and worrisome for ischemic changes in this patient with significant cardiovascular history Continue supportive care with MSIR and anticoagulation Will discuss with cardiology regarding further intervention and studies in this patient with low cardiovascular tolerance for any surgical revascularization Discharge Planning Hospice consult pending Problem Qualifiers (1) Acute exacerbation of CHF (congestive heart failure): Qualified Codes: I50.9 - Heart failure, unspecified Gerri Ackerman MD Feb 01, 2018 13:00
--- NOTE | 2018-02-01 15:01 | HHI.DCPOC ---
Discharge Care Plan Diagnosis: (1) Acute congestive heart failure Goals to Promote Your Health * To prevent worsening of your condition and complications * To maintain your health at the optimal level Directions to Meet Your Goals Take your medications as prescribed Follow your dietary instruction Follow activity as directed Keep your appointments as scheduled Take your immunizations and boosters as scheduled If your symptoms worsen call your PCP, if no PCP go to Urgent Care Center or Emergency Room Smoking is Dangerous to Your Health. Avoid second hand smoke Call the 24-hour hour crisis hotline for domestic abuse at Gerri Ackerman MD Feb 01, 2018 15:01
--- NOTE | 2018-02-01 15:03 | HHI.DS ---
Discharge Summary Admission Date Jan 28, 2018 at 11:32 Discharge Date: Feb 01, 2018 Admitting Diagnosis CHF exacerbation (1) Left leg DVT ICD Code: I82.402 - Acute embolism and thrombosis of unspecified deep veins of left lower extremity (2) Acute exacerbation of CHF (congestive heart failure) ICD Code: I50.9 - Heart failure, unspecified (3) Edema ICD Code: R60.9 - Edema, unspecified Status: Acute (4) Chronic kidney disease (CKD) ICD Code: N18.9 - Chronic kidney disease, unspecified Status: Acute (5) Diabetes mellitus ICD Code: E11.9 - Type 2 diabetes mellitus without complications Status: Acute (6) Skin ulcers of both feet ICD Code: L97.519 - Non-pressure chronic ulcer of other part of right foot with unspecified severity; L97.529 - Non-pressure chronic ulcer of other part of left foot with unspecified severity Procedures None Brief History - From Admission Mr. Mccurdy is an 82-year-old male. He came in secondary to bilateral lower extremity swelling and pain. CHF exacerbation is evident with pulmonary edema and lower extremity edema. He is also found to have a left lower extremity DVT which may have been contributory to his pain. At baseline he has CHF. He is on Lasix at baseline. No complaints of chest pain during this exacerbation. No other complaints this morning. CBC/BMP: 01/31/18 1245 01/29/18 0635 Significant Findings Laboratory Tests Test 01/31/18 12:45 01/31/18 16:45 01/31/18 19:00 01/31/18 21:07 Red Blood Count 4.28 MIL/MM3 (4.50-5.90) Hemoglobin 12.9 GM/DL (13.0-17.0) Red Cell Distribution Width 18.8 % (11.6-17.2) Mean Platelet Volume 11.3 FL (7.0-11.0) Prothrombin Time 27.5 SEC (9.8-11.6) Activated Partial Thromboplast Time 41.1 SEC (24.3-30.1) 123.4 SEC (24.3-30.1) Arterial Blood pH 7.53 (7.380-7.420) Arterial Blood Partial Pressure CO2 29 mmHG (38-42) Test 01/31/18 23:55 02/01/18 05:00 02/01/18 07:55 02/01/18 10:23 Activated Partial Thromboplast Time 41.1 SEC (24.3-30.1) 61.2 SEC (24.3-30.1) 116.8 SEC (24.3-30.1) 68.6 SEC (24.3-30.1) Imaging Last Impressions Head CT 01/31/18 1700 Signed Impressions: Service Date/Time: Wednesday, January 31, 2018 17:06 - CONCLUSION: Negative for an acute process. Aric Zaragoza MD FACR Chest X-Ray 01/31/18 0000 Signed Impressions: Service Date/Time: Wednesday, January 31, 2018 16:16 - CONCLUSION: 1. Elevation of right hemidiaphragm with possible worsening associated effusion. 2. Parenchymal scarring predominantly in the apices 3. Plain film finding concerning for some degree of vascular congestion or volume overload with prominence of the central hilar vascular structures and interstitial prominence, unchanged. Heart size remains prominent. Fabio Farnsworth MD Lower Extremity Ultrasound 01/27/18 0000 Signed Impressions: Service Date/Time: Sunday, January 28, 2018 00:21 - CONCLUSION: Study is positive for left leg DVT Brady Chirinos MD PE at Discharge SKIN: bilat large ulcerated skin on dorsum of both feet, GENERAL: This is a well-nourished, well-developed patient, in no apparent distress. CARDIOVASCULAR: Regular rate and rhythm without murmurs, gallops, or rubs. RESPIRATORY: Clear to auscultation. Breath sounds equal bilaterally. No wheezes , rales, or rhonchi. GASTROINTESTINAL: Abdomen soft, non-tender, nondistended. Normal active bowel sounds MUSCULOSKELETAL: Extremities without clubbing, cyanosis, +1-2 edema bilat feet NEURO: Alert & Oriented x4 to person, place, time, situation. Moves all ext x4 Doppler bilat DP and lm pulse Pt update on day of discharge Please see daily progress note Hospital Course Patient is an 82-year-old gentleman with recurrent episodes of congestive heart failure with concomitant renal failure. Patient is quite symptomatic with air hunger. He also has quite a bit of pain in his feet due to chronic. Patient did not have a significant decompensation over the last several months and is a candidate for hospice management. Consultation was obtained and the patient and family agreed for hospice care center Pt Condition on Discharge: Fair Discharge Disposition: Hospice/Med Facility Discharge Time: <= 30 minutes Discharge Instructions DIET: Follow Instructions for: As Tolerated, No Restrictions Activities you can perform: Regular-No Restrictions Continued Medications: Albuterol 8.5 GM Inh (Proair Hfa 8.5 GM Inh) 90 Mcg/Act Aer 2 PUFF INH Q4-6H PRN for SHORTNESS OF BREATH, #1 INHALER 0 Refills 108 mcg/actuation Atorvastatin (Atorvastatin) 40 Mg Tab 40 MG PO HS for Cholesterol Management, #30 TAB [address] (Dulcolax DR) 5 Mg Tabdr 5 MG PO DAILY PRN for CONSTIPATION, #30 TAB 0 Refills Cetirizine (Cetirizine) 10 Mg Tab 10 MG PO DAILY for Allergies, TAB 0 Refills Cholecalciferol (Vitamin D3) 1,000 Unit Tab 1000 UNITS PO DAILY for Nutritional Supplement, #1 BOTTLE 0 Refills Clopidogrel (Plavix) 75 Mg Tab 75 MG PO DAILY for Blood Clot Prevention, #30 TAB 0 Refills Finasteride (Finasteride) 5 Mg Tab 5 MG PO HS for Manage Prostate Problems, #30 TAB 0 Refills Do not crush. Fluticasone-Vilanterol Inh (Breo Ellipta Inh) 200-25 Mcg/Act Inh 2 PUFF INH DAILY, #1 INHALER 0 Refills Use daily at the same time. Furosemide (Lasix) 40 Mg Tab 40 MG PO DAILY for CHF, #30 TAB 0 Refills Insulin Glargine Inj (Lantus Inj) 1,000 Unit/10 Ml Vial 14 UNITS SQ HS for Blood Sugar Management, VIAL 0 Refills Multiple Vitamins W/ Minerals (Preservision Areds) 1 Tab 1 TAB PO DAILY for Nutritional Supplement, TAB 0 Refills Nitroglycerin SL (Nitrostat SL) 0.4 Mg Subl 0.4 MG SL DIRECTED PRN for CHEST PAIN, #100 TAB.SL 0 Refills 1 tablet under the tongue as needed for chest pain. Repeat every 5 minutes for a total of 3 DOSES or call 911 if NO relief. Omeprazole (Omeprazole) 20 Mg Tab 20 MG PO BID, #30 TAB 0 Refills Primidone (Primidone) 50 Mg Tab 250 MG PO TID for Control Seizures, #180 TAB 0 Refills [Albuterol-Ipratropium Neb] () 1 AMPULE NEBU 1 AMPULE NEB Q2HR NEB PRN for wheezing Gerri Ackerman MD Feb 01, 2018 15:03
[2018-02-01] MEDS: WARFARIN SOD 4 MG TAB PO SCH (16:03)
[2018-02-02] MEDS ORDERED: FUROSEMIDE 40 MG TAB PO SCH (09:00)
== END 2018-02-01 17:50 | disposition hospice, inpatient (51) | DRG 291 ==
LOC: PHED 20:45 → PHEDA 01-28 00:46 → PH3A 01-28 02:15 → OBSVTOIN 01-28 11:32 → PHICU 01-31 17:30
PROVIDERS: ADMIT Hospitalist; ATTEND Hospitalist
DX: I13.0 Hypertensive heart and chronic kidney disease with heart failure and stage 1 through stage 4 chronic kidney disease, or unspecified chronic kidney disease (principal); I50.23 Acute on chronic systolic (congestive) heart failure; N18.9 Chronic kidney disease, unspecified; I95.9 Hypotension, unspecified; I82.402 Acute embolism and thrombosis of unspecified deep veins of left lower extremity; E11.22 Type 2 diabetes mellitus with diabetic chronic kidney disease; Z79.4 Long term (current) use of insulin; L97.519 Non-pressure chronic ulcer of other part of right foot with unspecified severity; L97.529 Non-pressure chronic ulcer of other part of left foot with unspecified severity; J44.9 Chronic obstructive pulmonary disease, unspecified; I25.5 Ischemic cardiomyopathy; I25.10 Atherosclerotic heart disease of native coronary artery without angina pectoris; I25.2 Old myocardial infarction; Z95.5 Presence of coronary angioplasty implant and graft; E78.5 Hyperlipidemia, unspecified; N40.0 Benign prostatic hyperplasia without lower urinary tract symptoms; M19.90 Unspecified osteoarthritis, unspecified site; K21.9 Gastro-esophageal reflux disease without esophagitis; Z86.711 Personal history of pulmonary embolism; Z79.02 Long term (current) use of antithrombotics/antiplatelets; H91.90 Unspecified hearing loss, unspecified ear; Z51.5 Encounter for palliative care; Z66 Do not resuscitate
CPT/HCPCS: 36600; 70450; 71045; 80053; 82272; 82805; 82948; 83735; 83880; 85025; 85027; 85610; 85730; 87641; 93970; 94640; 94664; 99285; J1644; J1650; J1815; J1940; J2270